=== PATIENT | female | born 1945 | race Caucasian/White ===

== ENCOUNTER → 2017-11-28 11:21 | Outpatient (CLI) | payer MEDICARE, OTHER, SELFPAY ==
--- NOTE | 2017-11-28 | DI.CT.S_ITS ---
PROCEDURE: CT ABDOMEN PELVIS W CON INDICATIONS: ELEVATED LIVER FUNCTION TESTS TECHNIQUE: After the administration of oral and intravenous contrast, 5 mm thick sections acquired from the diaphragms to the symphysis. 5 mm thick coronal and sagittal reformats were performed. For radiation dose reduction, the following was used: automated exposure control, adjustment of mA and/or kV according to patient size. COMPARISON: None. FINDINGS: Image quality: Excellent. ABDOMEN: Lung bases: Lung bases are clear. Heart size is normal. There is a small hiatal hernia behind the heart. Solid organs: Liver is normal in size and enhancement. Gallbladder appears normal. Biliary system is non-dilated. Pancreas enhances normally. Spleen is normal in size and enhancement. No adrenal nodules. Kidneys are normal in size and enhancement, without hydronephrosis. Peritoneum and bowel: Stomach, small bowel, and colon loops are normal in caliber and wall thickness. No free fluid or air. Nodes and vessels: No retroperitoneal or mesenteric adenopathy. Aorta and inferior vena cava are normal in caliber. Miscellaneous: No ventral hernias. PELVIS: Genitourinary: Bladder wall thickness is normal. Several presumed small uterine fibroids. Miscellaneous: No inguinal hernias or adenopathy. Bones: No suspicious bony lesions. No vertebral body compression fractures. IMPRESSION: Small hiatal hernia behind the heart, incidental nose made of several small uterine fibroids but no adnexal abnormality is seen. Normal appendix identified at the right lower quadrant. Dictated by: Hansel Cardoso M.D. on 11/28/2017 at 13:37 Approved by: Hansel Cardoso M.D. on 11/28/2017 at 13:39
== END ==
PROVIDERS: PCP Obstetrics & Gynecology; Visit Provider Physician Assistant
DX: R94.5 Abnormal results of liver function studies (principal); K44.9 Diaphragmatic hernia without obstruction or gangrene; D25.9 Leiomyoma of uterus, unspecified
CPT/HCPCS: 74177

== ENCOUNTER 2020-08-09 15:00 | Emergency (ER) | payer MEDICARE, OTHER, SELFPAY ==
[2020-08-09 15:07] VITALS: BP 135/92; PULSE 79; RESP 18; TEMP 37; O2SAT 100
[2020-08-09 15:37] LABS: Add Manual Diff / Slide Review NO; Basophils Absolute Auto 100 /uL (0-100); Basophils Percent Auto 1.2 % (0-2); Eosinophils Absolute Auto 0 /uL (0-450); Eosinophils Percent Auto 0.3 % (2-4); Hematocrit 32.6 % (36-46); Hemoglobin 10.5 g/dL (12.0-16.0); Lymphocytes Absolute Auto 1500 /uL (1100-4500); Lymphocytes Percent Auto 15.1 % (25-40); Mean Corpuscular HGB Conc 32.2 % (30-36); Mean Corpuscular Hemoglobin 26.5 PG (26-34); Mean Corpuscular Volume 82.3 fL (80-100); Monocytes Absolute Auto 800 /uL (0-900); Monocytes Percent Auto 8.2 % (3-14); Neutrophils Absolute Auto 7500 /uL (1500-7000); Neutrophils Percent Auto 75.2 % (50-75); Platelet Count 464 X10^3/uL (150-400); Red Blood Cell Count 3.96 X10^6/uL (4.0-5.2); Red Cell Distribution Width 16.4 % (11.6-14.8)
[2020-08-09 15:43] LABS: INR 1.2 (0.9-1.3); Prothrombin Time 14.4 SECONDS (10.1-12.7)
[2020-08-09 15:46] LABS: PTT Partial Thromboplastin Tim 32 SECONDS (26.4-36.2)
[2020-08-09 15:53] LABS: Alanine Aminotransferase 74 IU/L (<35); Albumin 3.8 g/dL (3.5-5.0); Alkaline Phosphatase 341 U/L (38-126); Aspartate Aminotransferase 106 IU/L (14-36); BUN Creatinine Ratio 16.1 (6-22); Bilirubin Total 0.3 mg/dL (0.2-1.3); Blood Urea Nitrogen 10 mg/dL (7-17); Calcium 9.6 mg/dL (8.4-10.2); Carbon Dioxide 32 mmol/L (22-32); Chloride 101 mmol/L (98-107); Estimated Glomerular Filt Rate > 60.0 mL/min (>60); Globulin 3.8 g/dL (1.7-4.1); Glucose 117 mg/dL (80-110); HEMOLYSIS < 15 (0-50); Lipase 58 U/L (23-300); Potassium 4.3 mmol/L (3.4-5.1); Sodium 136 mmol/L (137-145); Total Protein 7.6 g/dL (6.3-8.2)
--- NOTE | 2020-08-09 16:07 | DI.US.S_ITS ---
PROCEDURE: US ABDOMEN LIMITED INDICATIONS: ruq pain TECHNIQUE: Real-time focused scanning was performed of the abdomen, with image documentation. COMPARISON: [facility], CT, CT ABDOMEN PELVIS W CON, 11/28/2017, 12:18. [facility], CT, CT ABDOMEN PELVIS W CON, 08/09/2020, 16:20. FINDINGS: The liver is normal in size and demonstrates no focal lesions. No findings of gallstones or sludge are seen. The gallbladder wall is not thickened, measuring 3 mm or less. No specific pericholecystic fluid is seen. The sonographic Tovar sign is negative. There is no biliary dilatation, the common bile duct measures 3 mm. No significant pancreatic abnormality is seen on these images. IMPRESSION: The gallbladder demonstrates a normal sonographic appearance. No biliary dilatation is seen. Dictated by: Jovani Reis M.D. on 08/09/2020 at 16:23 Approved by: Jovani Reis M.D. on 08/09/2020 at 16:24
--- NOTE | 2020-08-09 16:07 | DI.CT.S_ITS ---
PROCEDURE: CT ABDOMEN PELVIS W CON INDICATIONS: ab pain and flank pain TECHNIQUE: After the administration of intravenous contrast, 5 mm thick sections acquired from the diaphragm to the symphysis. 5 mm coronal and sagittal reformats were acquired. For radiation dose reduction, the following was used: automated exposure control, adjustment of mA and/or kV according to patient size. COMPARISON: [facility], CT, CT ABDOMEN PELVIS W CON, 11/28/2017, 12:18. FINDINGS: Image quality: Excellent. ABDOMEN: Lung bases: Lung bases are clear. Heart size is normal. Solid organs: Liver is normal in size and enhancement. Gallbladder is within normal limits. Biliary system is non dilated. Pancreas enhances normally. The pancreatic head is in contact with the right-sided retroperitoneal mass. Spleen is normal in size and enhancement. No adrenal nodules. Kidneys demonstrate normal size and enhancement. There is new, mild right hydronephrosis and right renal pelvic dilatation. Peritoneum and bowel: Moderate hiatal hernia. 20 mm lipoma within the posterior aspect of the gastric antrum, increased from the prior examination. Bowel loops demonstrate normal wall thickness and caliber. No free fluid or air. Normal appendix. Nodes and vessels: There is a new, heterogeneously enhancing mass within the right retroperitoneum, anterior to the infrarenal IVC and aorta, measuring 9 cm transverse by 6 cm anteroposterior by 7.5 cm craniocaudal. This mass demonstrates encasement and obstruction of the right ureter, as well as anterior deviation of the 2nd portion of the duodenum. This mass contacts the anterior surface of the inferior vena cava and aorta. Aorta and inferior vena cava are normal in size. Miscellaneous: No ventral hernias. PELVIS: Genitourinary: Bladder wall thickness is normal. Miscellaneous: No inguinal hernias or adenopathy. Bones: No suspicious bony lesions. No vertebral body compression fractures. IMPRESSION: 1. Malignant right-sided retroperitoneal mass, which abuts the duodenum, pancreatic head, IVC, and aorta, and causes right ureteral obstruction, with mild right hydronephrosis. 2. Moderate hiatal hernia. 3. Gastric lipoma. Dictated by: Kade Dawn M.D. on 08/09/2020 at 16:40 Approved by: Kade Dawn M.D. on 08/09/2020 at 16:45
--- NOTE | 2020-08-09 16:13 | ED_ITS ---
HPI - Abdominal Pain General Chief Complaint: Abdominal Pain Stated Complaint: abdominal pain and fever Time Seen by Provider: 08/09/20 15:57 Source: patient Mode of arrival: Ambulatory Limitations: no limitations History of Present Illness HPI narrative: Patient is a 74-year-old female who presents with abdominal pain and back pain ongoing for at least a week. She actually says she had some right-sided flank pain which started a couple weeks ago. She was seen evaluated at a walk-in clinic on Friday who started her on Cipro for UTI. Her back pain and got worse in his radiating around to her abdomen she was referred to the emergency department thought to have pyelonephritis. She states that she is woken up with sweats and has had freezing cold chills. She feels nauseous she has had decrease in appetite. She denies any chest pain or shortness of breath. She denies any painful or frequent urination. MD complaint: abdominal pain and flank pain Onset (ago): day(s) Pain Consistency: constant Location: RUQ and R flank Related Data Home Medications Medication Instructions Recorded Confirmed CHOLECALCIFEROL (VITAMIN D) 2,000 units PO QDAY #0 07/14/12 Previous Rx's Medication Instructions Recorded [ESTRADIOL CREAM] 0.2 % TOPICAL QHS #30 gm 10/16/16 clobetasol 0.05 % topical ointment See Rx Instructions .ROUTE 08/09/19 .COMPLEX #30 gram hydrocodone-acetaminophen 1 tab PO Q6H PRN #10 tab 08/09/20 ondansetron 4 mg PO Q8H PRN #10 tab 08/09/20 Allergies Allergy/AdvReac Type Severity Reaction Status Date / Time codeine AdvReac Unknown rash/nausea Verified 08/09/20 17:00 Review of Systems Review of Systems ROS Unobtainable: All systems reviewed & are unremarkable except as noted in HPI and below Constitutional Constitutional: Reports body ache(s), Reports chills, Reports fever(s), Denies lethargy and Denies weakness Eyes Eyes: Denies change in vision, Denies eye discharge, Denies irritation and Denies loss of vision ENT Ears, Nose, Mouth, and Throat: Denies change in voice, Denies neck pain and Denies sore throat Cardiovascular Cardiovascular: Denies chest pain, Denies irregular heart rhythm, Denies lightheadedness, Denies palpitations, Denies dyspnea, Denies dyspnea on exertion and Denies orthopnea Respiratory Respiratory: Denies cough, Denies dyspnea, Denies dyspnea on exertion and Denies wheezing Gastrointestinal Gastrointestinal: Reports abdominal pain and Reports nausea Genitourinary Genitourinary: Reports as per HPI Genitourinary: Reports as per HPI Musculoskeletal Musculoskeletal: Denies back pain and Denies neck pain Integumentary/Breasts Skin/Breast: Denies pruritus, Denies erythema, Denies rash and Denies wounds Neurologic Neurologic: Denies loss of vision and Denies weakness Endocrine Endocrine: Denies palpitations Allergic/Immunologic Allergic/Immunologic: Denies wheezing Patient History Surgical History Status post dilation and curettage (05/07/13) Status post hemorrhoidectomy Status post tonsillectomy and adenoidectomy Exam Initial Vital Signs Initial Vital Signs: Vital Signs Temperature 98.6 F 08/09/20 15:07 Pulse Rate 79 08/09/20 15:07 Respiratory Rate 18 08/09/20 15:07 Blood Pressure 135/92 H 08/09/20 15:07 Pulse Oximetry 100 08/09/20 15:07 GENERAL: Alert pleasant 74-year-old female and in no acute distress. HEENT: Head atraumatic,EOMI, pupils reactive, face symmetric, moist mucous membranes CARDIOVASCULAR: Regular rate and rhythm without murmurs, rubs or gallops. RESPIRATORY: Breath sounds equal bilaterally, no wheezes rales or rhonchi. ABDOMEN: Soft, mild right upper quadrant pain with positive Tovar sign mild epigastric pain slight lower abdominal pain : No CVA tenderness EXTREMITIES: Normal range of motion, no clubbing or edema. Neurovascularly intact NEUROLOGICAL: Alert and oriented x4.Normal gait and speech. Cranial nerves II through XII grossly intact. SKIN: Warm, dry, no laceration, no petechiae, no rashes or lesions. Course Orders Ordered: ED Orders 08/09/20 15:30 Blood Culture Stat Complete Blood Count AUTO DIFF Stat Comprehensive Metabolic Panel Stat Lipase Stat Partial Thromboplastin Time Stat Prothrombin Time INR Stat 08/09/20 16:07 CT abdomen pelvis w con Stat US abdomen limited Stat 08/09/20 16:56 Urinalysis and Microscopic Stat 08/09/20 17:09 EKG-12 Lead Routine 08/09/20 17:47 Consult to [facility] [place] - [employer] Stat Discontinued Medications Ketorolac Tromethamine (Ketorolac 60 Mg/2 Ml Vial) 30 mg IV NOW ONE Stop: 08/09/20 16:14 Last Admin: 08/09/20 16:23 Dose: 30 mg Documented by: DEEPTHI Morphine Sulfate (Morphine 2 Mg/Ml Inj) 2 mg IV NOW ONE Stop: 08/09/20 17:00 Last Admin: 08/09/20 17:30 Dose: 2 mg Documented by: DEEPTHI Ondansetron HCl (Ondansetron 4 Mg/2 Ml Inj) 4 mg IV NOW ONE Stop: 08/09/20 16:14 Last Admin: 08/09/20 16:23 Dose: 4 mg Documented by: DEEPTHI Vital Signs Vital signs: Vital Signs - 8 hr 08/09/20 15:07 08/09/20 17:28 08/09/20 17:29 Temperature 98.6 F Pulse Rate 79 79 75 Respiratory Rate 18 Blood Pressure 135/92 H 141/65 H Pulse Oximetry 100 96 97 08/09/20 17:30 08/09/20 18:00 Temperature Pulse Rate 74 78 Respiratory Rate Blood Pressure 140/65 160/72 H Pulse Oximetry 95 96 MDM - Abdominal Pain Lab Data Attestation: I reviewed the patient's lab results. Result diagrams: 08/09/20 15:30 08/09/20 15:30 Labs: Lab Results 08/09/20 08/09/20 08/09/20 Range/Units 15:30 15:30 15:30 WBC 10.0 (4.5-11.0) X10^3/uL RBC 3.96 L (4.0-5.2) X10^6/uL Hgb 10.5 L (12.0-16.0) g/dL Hct 32.6 L (36-46) % MCV 82.3 (80-100) fL MCH 26.5 (26-34) PG MCHC 32.2 (30-36) % RDW 16.4 H (11.6-14.8) % Plt Count 464 H (150-400) X10^3/uL Neut % (Auto) 75.2 H (50-75) % Lymph % (Auto) 15.1 L (25-40) % Rhea % (Auto) 8.2 (3-14) % Eos % (Auto) 0.3 L (2-4) % Baso % (Auto) 1.2 (0-2) % Neut # (Auto) 7500 H (2895-8960) /uL Lymph # (Auto) 1500 (0001-6397) /uL Rhea # (Auto) 800 (0-900) /uL Eos # (Auto) 0 (0-450) /uL Baso # (Auto) 100 (0-100) /uL PT 14.4 H (10.1-12.7) SECONDS INR 1.2 (0.9-1.3) APTT 32 (26.4-36.2) SECONDS Sodium 136 L (137-145) mmol/L Potassium 4.3 (3.4-5.1) mmol/L Chloride 101 (98-107) mmol/L Carbon Dioxide 32 (22-32) mmol/L BUN 10 (7-17) mg/dL Creatinine 0.62 (0.52-1.04) mg/dL Estimated GFR > 60.0 (>60) mL/min BUN/Creatinine Ratio 16.1 (6-22) Glucose 117 H (80-110) mg/dL Calcium 9.6 (8.4-10.2) mg/dL Total Bilirubin 0.3 (0.2-1.3) mg/dL AST 106 H (14-36) IU/L ALT 74 H (<35) IU/L Alkaline Phosphatase 341 H (38-126) U/L Total Protein 7.6 (6.3-8.2) g/dL Albumin 3.8 (3.5-5.0) g/dL Globulin 3.8 (1.7-4.1) g/dL Albumin/Globulin Ratio 1.0 (1.0-2.8) Lipase 58 (23-300) U/L Urine Color Urine Appearance Urine pH (4.5-8.0) Ur Specific [place] (1.000-1.035) Urine Protein (Negative) Urine Glucose (UA) (Negative) g/dL Urine Ketones (NEGATIVE) Urine Occult Blood (Negative) Urine Nitrate (Negative) Urine Bilirubin (NEGATIVE) Urine Urobilinogen (0.2) E.U./dL Ur Leukocyte Esterase (NEGATIVE) Urine RBC (0-5/HPF) Urine WBC (0-5/HPF) Ur Squamous Epith Cells (0-5/HPF) Amorphous Sediment Urine Bacteria (None) Urine Mucus (Negative) Ur Culture Indicated? 08/09/20 Range/Units 16:56 WBC (4.5-11.0) X10^3/uL RBC (4.0-5.2) X10^6/uL Hgb (12.0-16.0) g/dL Hct (36-46) % MCV (80-100) fL MCH (26-34) PG MCHC (30-36) % RDW (11.6-14.8) % Plt Count (150-400) X10^3/uL Neut % (Auto) (50-75) % Lymph % (Auto) (25-40) % Rhea % (Auto) (3-14) % Eos % (Auto) (2-4) % Baso % (Auto) (0-2) % Neut # (Auto) (8091-4513) /uL Lymph # (Auto) (5151-3857) /uL Rhea # (Auto) (0-900) /uL Eos # (Auto) (0-450) /uL Baso # (Auto) (0-100) /uL PT (10.1-12.7) SECONDS INR (0.9-1.3) APTT (26.4-36.2) SECONDS Sodium (137-145) mmol/L Potassium (3.4-5.1) mmol/L Chloride (98-107) mmol/L Carbon Dioxide (22-32) mmol/L BUN (7-17) mg/dL Creatinine (0.52-1.04) mg/dL Estimated GFR (>60) mL/min BUN/Creatinine Ratio (6-22) Glucose (80-110) mg/dL Calcium (8.4-10.2) mg/dL Total Bilirubin (0.2-1.3) mg/dL AST (14-36) IU/L ALT (<35) IU/L Alkaline Phosphatase (38-126) U/L Total Protein (6.3-8.2) g/dL Albumin (3.5-5.0) g/dL Globulin (1.7-4.1) g/dL Albumin/Globulin Ratio (1.0-2.8) Lipase (23-300) U/L Urine Color Yellow Urine Appearance Clear Urine pH 6.0 (4.5-8.0) Ur Specific [place] 1.015 (1.000-1.035) Urine Protein Negative (Negative) Urine Glucose (UA) Negative (Negative) g/dL Urine Ketones Negative (NEGATIVE) Urine Occult Blood Negative (Negative) Urine Nitrate Negative (Negative) Urine Bilirubin Negative (NEGATIVE) Urine Urobilinogen 0.2 (0.2) E.U./dL Ur Leukocyte Esterase Negative (NEGATIVE) Urine RBC None seen (0-5/HPF) Urine WBC 1-5/hpf (0-5/HPF) Ur Squamous Epith Cells 1-5 /hpf (0-5/HPF) Amorphous Sediment 1+ Urine Bacteria Occasional (0-1) (None) Urine Mucus 2+ H (Negative) Ur Culture Indicated? Cult not indicated Imaging Data CT scan - abdomen/pelvis: Radiologist's Impression: PROCEDURE: CT ABDOMEN PELVIS W CON INDICATIONS: ab pain and flank pain TECHNIQUE: After the administration of intravenous contrast, 5 mm thick sections acquired from the diaphragm to the symphysis. 5 mm coronal and sagittal reformats were acquired. For radiation dose reduction, the following was used: automated exposure control, adjustment of mA and/or kV according to patient size. COMPARISON: [facility], CT, CT ABDOMEN PELVIS W CON, 11/28/2017, 12:18. FINDINGS: Image quality: Excellent. ABDOMEN: Lung bases: Lung bases are clear. Heart size is normal. Solid organs: Liver is normal in size and enhancement. Gallbladder is within normal limits. Biliary system is non dilated. Pancreas enhances normally. The pancreatic head is in contact with the right-sided retroperitoneal mass. Spleen is normal in size and enhancement. No adrenal nodules. Kidneys demonstrate normal size and enha ncement. There is new, mild right hydronephrosis and right renal pelvic dilatation. Peritoneum and bowel: Moderate hiatal hernia. 20 mm lipoma within the posterior aspect of the gastric antrum, increased from the prior examination. Bowel loops demonstrate normal wall thickness and caliber. No free fluid or air. Normal appendix. Nodes and vessels: There is a new, heterogeneously enhancing mass within the right retroperitoneum, anterior to the infrarenal IVC and aorta, measuring 9 cm tr ansverse by 6 cm anteroposterior by 7.5 cm craniocaudal. This mass demonstrates encasement and obstruction of the right ureter, as well as anterior deviation of the 2nd portion of the duodenum. This mass contacts the anterior surface of the inferior vena cava and aorta. Aorta and inferior vena cava are normal in size. Miscellaneous: No ventral hernias. PELVIS: Genitourinary: Bladder wall thickness is normal. Miscellaneous: No inguinal hernias or adenopathy. Bones: No suspicious bony lesions. No vertebral body compression fractures. IMPRESSION: 1. Malignant right-sided retroperitoneal mass, which abuts the duodenum, pancreatic head, IVC, and aorta, and causes right ureteral obstruction, with mild right hydronephrosis. 2. Moderate hiatal hernia. 3. Gastric lipoma. Dictated by: Kade Dawn M.D. on 08/09/2020 at 16:40 US - abdomen: Radiologist's Impression: PROCEDURE: US ABDOMEN LIMITED INDICATIONS: ruq pain TECHNIQUE: Real-time focused scanning was performed of the abdomen, with image documentation. COMPARISON: [facility], CT, CT ABDOMEN PELVIS W CON, 11/28/2017, 12:18. [facility], CT, CT ABDOMEN PELVIS W CON, 08/09/2020, 16:20. FINDINGS: The liver is normal in size and demonstrates no focal lesions. No findings of gallstones or sludge are seen. The gallbladder wall is not thickened, measuring 3 mm or less. No specific pericholecystic fluid is seen. The sonographic Tovar sign is negative. There is no biliary dilatation, the common bile duct measures 3 mm. No significant pancreatic abnormality is seen on these images. IMPRESSION: The gallbladder demonstrates a normal sonographic appearance. No biliary dilatation is seen. Dictated by: Jovani Reis M.D. on 08/09/2020 at 16:23 Approved by: Jovani Reis M.D. on 08/09/2020 at 16:24 ECG Data Attestation: I personally reviewed and interpreted this ECG as follows: Prior ECG tracings: not available for review Interpretation: Normal sinus rhythm rate 69 p.r. interval 172 QRS [address] changes MDM Narrative Medical decision making narrative: I have informed patient of CT results which are likely malignant cancer. I have strongly recommended she continue to follow-up with her primary care provider to get referral to oncology. I will be calling her PCP to home tomorrow saying it is though past hours to help get her set up. Social Work has been in to see her. Her pain is significantly better after morphine and Zofran has helped her nausea. There is no sign of infection at this time I do not believe that she needs antibiotics I have told her to stop taking them. She had no urinary frequency or urgency. I discussed all findings with the patient, Education has been performed regarding treatment plan, diagnosis, warning signs and symptoms and all concerns have been addressed. Verbally agree with and understood all of the above. Discharge Plan Departure Patient Disposition: Home Clinical Impression: Retroperitoneal mass Instructions: DI for Prostate Cancer Activity Restrictions/Additional Instructions: *You have been diagnosed with retroperitoneal mass *What to do: You will need a biopsy and further workup. The fastest way to get a biopsy and further workup is to stay with your current PCP. I will call help with the clinic for you tomorrow to help expedite your care. If you would like to change her PCP after you have had oncology than you may. [facility] number= [phone] *Continue to take medications as directed Stop taking antibiotics you do not have an infection [place] 1 tablet every 6 hours if needed for pain Zofran 4 mg every 8 hours if needed for nausea or vomiting *Follow up with your primary care provider in 2-3 days *Return to ER if you should have increasing pain, fever or any new, worsening or concerning symptoms CONTROLLED SUBSTANCE DISCHARGE (Narcotoic/benzodiazepine/Flexeril/Phenergan) 1. You have been prescribed narcotic medications, it does have acetaminophen/Tylenol/paracetamol in it, DO NOT TAKE MORE THAN 4,00mg in 24 hours of Tylenol. TRAMADOL DOES NOT CONTAIN TYLENOL 2. Please understand that we cannot provide further refills of narcotics, benzodiazepines or controlled substances through the ED and her pain management will need to be through your provider. 3. While on these medications you cannot drive or operate heavy machinery. 4. You cannot sign legal documents or perform any duties such as this. 5. As long as you're taking opiate pain medications he should also be taking a stool softener such as Colace, Dulcolax, MiraLAX or prune juice, to help avoid constipation. Prescriptions: New hydrocodone-acetaminophen 5-325 mg tablet 1 tab PO Q6H PRN (Reason: pain) Qty: 10 RF: 0 ondansetron 4 mg tablet,disintegrating 4 mg PO Q8H PRN (Reason: nausea and vomiting) Qty: 10 RF: 0 No Action CHOLECALCIFEROL (VITAMIN D) 2,000 units PO QDAY Qty: 0 RF: 0 [ESTRADIOL CREAM] 0.2 % Topical QHS Qty: 30 RF: 0 clobetasol 0.05 % ointment See Rx Instructions .ROUTE .COMPLEX Qty: 30 RF: 0 Referrals: Tiera Cortez MD [Primary Care Provider] -
[2020-08-09] MEDS: KETOROLAC 60 MG/2 ML VIAL 30 MG IV (16:23)
[2020-08-09] MEDS: ONDANSETRON 4 MG/2 ML INJ IV (16:23)
[2020-08-09 17:01] LABS: RBC Urine None Seen (0-5/HPF)
[2020-08-09 17:08] LABS: Appearance Urine UA CLEAR; Bilirubin Urine UA NEGATIVE (NEGATIVE); Color Urine UA YELLOW; Glucose Urine UA NEGATIVE (Negative); Ketones Urine UA NEGATIVE (NEGATIVE); Leukocyte Esterase Urine UA NEGATIVE (NEGATIVE); Nitrite Urine UA NEGATIVE (Negative); Occult Blood Urine UA NEGATIVE (Negative); Protein Urine UA NEGATIVE (Negative); Specific Gravity Urine UA 1.015 (1.000-1.035); Urobilinogen Urine UA 0.2 E.U./dL (0.2)
[2020-08-09 17:27] LABS: Amorphous Sediment Urine 1+; Bacteria Urine Occasional (0-1); Culture Indicated Urine Cult Not Indicated; Mucus Urine 2+ (Negative); Squamous Epithelial Cell Urine 1-5 /HPF (0-5/HPF); WBC Urine 1-5/HPF (0-5/HPF)
[2020-08-09 17:28] VITALS: PULSE 79; O2SAT 96
[2020-08-09 17:29] VITALS: BP 141/65; PULSE 75; O2SAT 97
[2020-08-09 17:30] VITALS: BP 140/65; PULSE 74; O2SAT 95
[2020-08-09] MEDS: MORPHINE 2 MG/ML INJ IV (17:30)
[2020-08-09 18:00] VITALS: BP 160/72; PULSE 78; O2SAT 96
--- NOTE | 2020-08-09 18:11 | CM.SWNOTE ---
MECHANICAL TECHNOLOGIST note MECHANICAL TECHNOLOGIST consult requested for patient. Patient is a 74 y/o female who presents to this ED with increasing back pain. Imaging performed during today's visit revealed a malignant mass. MECHANICAL TECHNOLOGIST enters room and speaks with patient. Patient is A+O x3. MECHANICAL TECHNOLOGIST and patient discuss findings from today's visit and patient's needs. Patient explains that she understands that she needs to follow up with PCP tomorrow to get a biopsy scheduled. Patient continues to explain that she is unsure of other needs pending outcome of biopsy. MECHANICAL TECHNOLOGIST and patient briefly discuss other resources. Patient states she may have questions later, and MECHANICAL TECHNOLOGIST offers to put ED social work phone in d/c notes. Patient accepts. MECHANICAL TECHNOLOGIST updates Dr. Morgan Pl: Patient to d/c to home and follow up with PCP following day. CHARLY Glaser
== END 2020-08-09 18:23 | disposition home or self-care (01) ==
PROVIDERS: Emergency Provider Emergency Medicine; PCP Obstetrics & Gynecology
DX: R19.00 Intra-abdominal and pelvic swelling, mass and lump, unspecified site (principal); R50.9 Fever, unspecified; R11.0 Nausea
CPT/HCPCS: 36415; 74177; 76705; 80053; 81001; 83690; 85025; 85610; 85730; 87040; 93005; 96374; 96375; 99284; J1885; J2270; J2405; Q9967

== ENCOUNTER → 2021-01-18 05:52 | Outpatient (CLI) | payer MEDICARE, OTHER, SELFPAY ==
[2021-01-18 08:21] LABS: COVID19 -Nasal RAPID Negative (Negative)
--- NOTE | 2021-01-24 11:40 | PM.PFT.1 ---
Pulmonary Function Test Referral & Results Date Patient Seen: 01/18/21 Requesting provider: Argenis Hughes Results: The spirometry demonstrates an FVC of 1.81 L which is 76% of predicted. The FEV1 was measured at 1.51 L which is 85% of predicted. The FEV1/FVC ratio was 84 which is 113% of predicted. No bronchodilator was administered No lung volumes were performed No diffusing capacity was performed The maximum voluntary ventilation was not performed Interpretation: This study demonstrates probably normal spirometry. There is a minimal reduction FEV1 although FEV1/FVC ratio is preserved suggesting the possibility of very minor obstructive lung disease, but this is not really supported by shape a flow volume loop. Suggest repeat study with lung volumes and bronchodilator to better evaluate pulmonary function
== END ==
PROVIDERS: PCP Obstetrics & Gynecology; Referring Provider Internal Medicine; Visit Provider Internal Medicine
DX: Z01.818 Encounter for other preprocedural examination (principal); Z20.822 Contact with and (suspected) exposure to COVID-19; R91.8 Other nonspecific abnormal finding of lung field
CPT/HCPCS: 87635; 94010; C9803

== ENCOUNTER → 2021-03-15 09:03 | Outpatient (CLI) | payer MEDICARE, OTHER, SELFPAY ==
--- NOTE | 2021-03-15 08:23 | DI.ECHO.S_ITS ---
Reason For Study: CANCER : :Ordering Physician: RICA, : :CIRA Performed By: Itz Ma : :Referring: CIRA STRAUSS : + + Interpretation Summary The left ventricle is normal in size. The ejection fraction is estimated to be 65-70%. There is a diffuse increased echo reflectance involving all the cardiac chambers as well as liver tissues likely due to enhanced gain from the machine. However on telemetry, there is low voltage complexes. Patient has history of malignancy therefore infiltrative cardiomyopathy like amyloidosis cannot be completely ruled out however there is no significant LVH. Correlate clinically. The right ventricle is normal in size and function. No significant valvular pathology seen. The IVC is of normal diameter and collapses greater than 50% with a sniff. This suggests a low right atrial pressure of 3 mm Hg. There is a small pericardial effusion noted. There are no echocardiographic indications of cardiac tamponade. Procedure: A two-dimensional transthoracic echocardiogram with color flow and Doppler was performed. The study quality was technically adequate. There is no prior echocardiogram noted for this patient. The patient was in sinus rhythm with heart rates between 58-65 bpm during the exam. Left Ventricle: The left ventricle is normal in size. Left ventricular wall thickness is borderline increased. There is no thrombus. Left ventricular systolic function is normal. The ejection fraction is estimated to be 65-70%. There are no focal wall motion abnormalities. MV E/A: 1.0 Med Peak E' Jason: 5.7 cm/sec E/E' med: 13.2. Right Ventricle: The right ventricle is normal in size and function. Atria: Both atria are normal in size. There is no Doppler evidence for an interatrial shunt. Mitral Valve: The mitral valve is normal in structure and function. There is trace mitral regurgitation. Aortic Valve: The aortic valve is normal in structure and function. There is no aortic valve stenosis. No aortic regurgitation is present. Tricuspid Valve: The tricuspid valve is normal in structure and function. There is a trace or physiologic amount of tricuspid regurgitation. Pulmonary artery pressures cannot be estimated because of the lack of a measurable TR jet velocity but the IVC suggests a CVP of around 3 mmHg. Pulmonic Valve: The pulmonic valve is normal in structure and function. There is no pulmonic valvular regurgitation. Great Vessels: The aortic root is normal size. The dimensions of the ascending aorta are normal. The IVC is of normal diameter and collapses greater than 50% with a sniff. This suggests a low right atrial pressure of 3 mm Hg. Pericardium/ Pleura There is a small pericardial effusion noted. There are no echocardiographic indications of cardiac tamponade. There is no pleural effusion. MMode/2D Measurements & Calculations LVIDd: 4.0 cm LVOT diam: 1.9 cm LVIDs: 2.6 cm Ao root diam: 2.5 cm FS: 35.0 % asc Aorta Diam: 3.1 cm IVSd: 1.0 cm LVPWd: 0.90 cm LV oneal. diameter/BSA (cm/m^2): 2.6 LV sys. diameter/BSA (cm/m^2): 1.7 LA dimension: 3.0 cm RA long axis: 4.7 cm LA A2 area: 14.1 cm2 LA A4 area: 11.2 cm2 LA length (vol): 5.1 cm LA vol: 26.2 ml LA vol index: 16.9 ml/m2 TAPSE_phl: 1.9 cm Doppler Measurements & Calculations Ao V2 max: 161.0 cm/sec LVOT Max Jason: 141.0 cm/sec Ao V2 mean: 109.0 cm/sec LV V1 max P.0 mmHg Ao max P.0 mmHg LV V1 VTI: 31.3 cm Ao mean P.0 mmHg HERBERT(I,D): 2.6 cm2 Ao V2 VTI: 34.5 cm HERBERT(V,D): 2.5 cm2 sev ratio: 0.91 HERBERT indexed to BSA (cm^2/m^2): 1.7 MV E max jason: 75.2 cm/sec SV(LVOT): 88.7 ml MV A max jason: 74.7 cm/sec MV E/A: 1.0 Med Peak E' Jason: 5.7 cm/sec E/E' med: 13.2 Lat Peak E' Jason: 9.9 cm/sec E/E' lat: 7.6 E/e' average: 10.4 MV dec time: 0.31 sec AV VR_phl: 0.88 MV P1/2t-pr_phl: 90.0 msec HERBERT(VTI)/BSA_phl: 1.7 Reading Physician:06:09 PM
== END ==
PROVIDERS: PCP Internal Medicine; Referring Provider Internal Medicine Medical Oncology; Visit Provider Internal Medicine Medical Oncology
DX: D49.2 Neoplasm of unspecified behavior of bone, soft tissue, and skin (principal); I31.3 Pericardial effusion (noninflammatory)
CPT/HCPCS: 93306

== ENCOUNTER → 2021-05-07 13:00 | Outpatient (CLI) | payer MEDICARE, OTHER, SELFPAY ==
--- NOTE | 2021-05-07 | DI.CT.S_ITS ---
PROCEDURE: CT CHEST ABD PEL W CON INDICATIONS: Neoplasm of unspecified behavior of bone, soft tissue TECHNIQUE: After the administration of oral and intravenous contrast, axial sections acquired from the supraclavicular neck to the pubic symphysis. Coronal and sagittal reformats were performed. For radiation dose reduction, the following was used: automated exposure control, adjustment of mA and/or kV according to patient size. COMPARISON: August 09, 2020. FINDINGS: Image quality: Excellent. CHEST: Lower Neck: No enlarged lymph nodes. Thyroid: Homogeneous attenuation. Axillae: No enlarged lymph nodes. Chest Wall: Unremarkable. Lungs and Airways: Biapical pleural thickening/scarring. Suture material is seen in the left lower lobe. A 1.7 cm noncalcified nodule/mass is seen in the left lower lobe (series 3, image 172). A 5.1 mm noncalcified nodule is seen in the right middle lobe (series 3, image 169). Pleura: No pneumothorax or pleural effusions. Heart: Heart size is normal. No pericardial effusion. Thoracic Vessels: The aorta and pulmonary arteries demonstrate normal size. Mediastinum and Bonita: No enlarged lymph nodes. Esophagus: No wall thickening. Trace hiatal hernia. ABDOMEN: Liver: Normal and smooth and contour. 6.1 mm hypoattenuating lesion in the left hepatic lobe, incompletely characterized. Gallbladder: No gallbladder wall thickening or pericholecystic fluid. Biliary ducts: Unremarkable. Pancreas: Unremarkable. Spleen: Unremarkable. Adrenal Glands: The right adrenal gland is unremarkable. Persistent fullness of the left adrenal gland apex measuring 1 cm (series 4, image 57), which is nonspecific. Kidneys and Ureters: Right nephrectomy. Normal enhancement of the left kidney without evidence of obstructive uropathy. Stomach and Bowel: No evidence of intestinal obstruction. A 1.8 x 1.7 cm fat attenuation lesion is seen in the gastric antrum, compatible with lipoma. Colonic diverticulosis without evidence of diverticulitis. Mild to moderate stool burden throughout the colon. Normal appendix. Peritoneum: No abnormal intraperitoneal fluid. No free air. 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 Ventral Wall: Trace fat containing periumbilical hernia. Abdominal Nodes: 1.4 cm contrast enhancing mass in the right retroperitoneal, suspicious for metastatic disease (series 4, image 68). Vessels: Aorta and inferior vena cava are normal in size. PELVIS: Pelvic Organs: Unremarkable. Bladder: Unremarkable. Pelvic Nodes: No enlarged lymph nodes. Miscellaneous: No inguinal hernias are seen. Bones: Multifocal degenerative change. Dextrocurvature of the thoracolumbar junction. IMPRESSION: 1. Bilateral noncalcified pulmonary nodules/mass as detailed above, concerning for metastatic disease. 2. 1.4 cm contrast enhancing mass in the right retroperitoneum, suspicious for metastatic disease. Dictated by: Tom Dillon M.D. on 05/07/2021 at 15:17 Approved by: Tom Dillon M.D. on 05/07/2021 at 15:35
== END ==
PROVIDERS: PCP Internal Medicine; Referring Provider Internal Medicine Medical Oncology; Visit Provider Internal Medicine Medical Oncology
DX: D49.2 Neoplasm of unspecified behavior of bone, soft tissue, and skin (principal); R91.8 Other nonspecific abnormal finding of lung field; R59.0 Localized enlarged lymph nodes
CPT/HCPCS: 71260; 74177

== ENCOUNTER → 2021-07-10 09:02 | Outpatient (CLI) | payer MEDICARE, OTHER, SELFPAY ==
--- NOTE | 2021-07-10 | DI.CT.S_ITS ---
PROCEDURE: CT CHEST ABD PEL W CON INDICATIONS: staging PEComa TECHNIQUE: After the administration of oral and intravenous contrast, axial sections acquired from the supraclavicular neck to the pubic symphysis. Coronal and sagittal reformats were performed. For radiation dose reduction, the following was used: automated exposure control, adjustment of mA and/or kV according to patient size. COMPARISON: [facility], CT, CT CHEST ABD PEL W CON, 05/07/2021, 13:52. FINDINGS: Image quality: Excellent. CHEST: Lower Neck: No enlarged lymph nodes. Thyroid: No focal thyroid lesions. Axillae: No enlarged lymph nodes. Overall, stable appearance of the bilateral axilla. Chest Wall: Unremarkable. Lungs and Airways: Mild biapical thickening/scarring as before. Stable appearance of postsurgical changes/suture of the posteromedial left lower lobe. Stable to slightly smaller size of pleural-based posterior left lower lobe nodule now measuring 4 mm in size versus 5 mm previously (image 219/series 5). Interval decrease in size of posteromedial left lower lobe nodule now measuring 1.0 cm versus 1.7 cm previously. Stable 3 mm subpleural nodule in the anterior left upper lobe (image 99/series 5). Interval decrease in size of now 2 mm right upper lobe pulmonary nodule seen on image 115/series 5, previously measuring 4 mm in size. No suspicious new nodules or masses identified. No septal thickening or nodularity. No pneumothorax or pleural effusions. Heart: Heart size is normal. No pericardial effusion. Thoracic Vessels: The aorta and pulmonary arteries demonstrate normal size. Mediastinum and Bonita: No enlarged lymph nodes. Esophagus: No wall thickening. Small hiatal hernia. ABDOMEN: Liver: There is a 0.5 mm anterior left hepatic lobe hypodensity. This is relatively stable in size and appearance. Gallbladder: Unremarkable. Biliary ducts: Unremarkable. Pancreas: Unremarkable. Spleen: Unremarkable. Adrenal Glands: Right adrenal gland is normal. Persistent nonspecific fullness of the left adrenal gland apex. Kidneys and Ureters: Status post right nephrectomy. Multiple surgical clips are noted in the right renal fossa. No suspicious soft tissue mass lesions in the right renal fossa. Left kidney is unremarkable. No evidence for obstructive uropathy. Stomach and Bowel: Stomach, small bowel loops, and colon are unremarkable. Redemonstration of fat attenuation mass in the gastric antrum measuring 1.8 x 1.7 cm in size, compatible with a lipoma. Scattered colonic diverticulosis without acute diverticulitis. Peritoneum: No abnormal intraperitoneal fluid. No free air. Interval decrease in size and conspicuity of central fat attenuation mass in the right lower abdomen peripherally measuring 2.1 x 2.1 cm versus 2.8 x 2.0 cm previously. Previously seen peripheral soft tissue density has also decreased in conspicuity. Findings are compatible with evolving fat necrosis versus omental infarction. Previously seen 1.4 cm oval soft tissue mass in the posterior right retroperitoneum has decreased in size, now measuring 9 mm. Ventral Wall: There is a fat-containing umbilical hernia without acute inflammation.. Abdominal Nodes: No retroperitoneal or mesenteric adenopathy by size criteria. Vessels: Aorta and inferior vena cava are normal in size. Scattered atherosclerotic calcifications of the abdominal aorta and iliac vessels without aneurysmal dilatation. PELVIS: Pelvic Organs: Unremarkable. Bladder: Unremarkable. Pelvic Nodes: No enlarged lymph nodes. Miscellaneous: No inguinal hernias are seen. Bones: No acute vertebral body compression fractures. Multilevel spondylitic changes throughout the imaged spine. No suspicious osseous lesions. IMPRESSION: 1. Multiple bilateral noncalcified pulmonary nodules are again noted with interval decrease in size and conspicuity. Findings are consistent with metastatic disease with interval positive treatment response. No new or enlarging lesions. 2. Previously seen 1.4 cm enhancing right retroperitoneal mass has decreased in size, now measuring approximately 0.9 cm in size. This is also consistent with metastatic disease demonstrating positive treatment response 3. No new masses or adenopathy identified in the chest, abdomen, or pelvis. No new or suspicious osseous abnormalities. 4. 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 5. Colonic diverticulosis without acute diverticulitis. 6. Atherosclerotic vascular disease. Other chronic findings as above. Dictated by: Freddy Dye M.D. on 07/10/2021 at 13:18 Approved by: Freddy Dye M.D. on 07/10/2021 at 13:46
== END ==
PROVIDERS: PCP Internal Medicine; Referring Provider Internal Medicine Medical Oncology; Visit Provider Internal Medicine Medical Oncology
DX: D49.2 Neoplasm of unspecified behavior of bone, soft tissue, and skin (principal); C78.02 Secondary malignant neoplasm of left lung; C78.01 Secondary malignant neoplasm of right lung; N28.1 Cyst of kidney, acquired; K42.9 Umbilical hernia without obstruction or gangrene; K57.90 Diverticulosis of intestine, part unspecified, without perforation or abscess without bleeding; Z90.5 Acquired absence of kidney
CPT/HCPCS: 71260; 74177

== ENCOUNTER → 2021-08-27 09:09 | Outpatient (CLI) | payer MEDICARE, OTHER, SELFPAY ==
--- NOTE | 2021-08-27 | DI.CT.S_ITS ---
PROCEDURE: CT CHEST ABD PEL W CON INDICATIONS: NAUSEA,VOMITING, RESTAGING TECHNIQUE: After the administration of oral and intravenous contrast, axial sections acquired from the supraclavicular neck to the pubic symphysis. Coronal and sagittal reformats were performed. For radiation dose reduction, the following was used: automated exposure control, adjustment of mA and/or kV according to patient size. COMPARISON:[facility], , PELVIC COMPLETE, 03/31/2013, 9:13. [facility], CT, CT ABDOMEN PELVIS W CON, 11/28/2017, 12:18. [facility], CT, CT ABDOMEN PELVIS W CON, 08/09/2020, 16:20. [facility], CT, CT CHEST ABD PEL W CON, 05/07/2021, 13:52. [facility], CT, CT CHEST ABD PEL W CON, 07/10/2021, 10:22. FINDINGS: Image quality: Excellent. CHEST: Lower Neck: No enlarged lymph nodes. Thyroid: There is a 1 cm enhancing nodule in lobe Axillae: No enlarged lymph nodes. Chest Wall: Unremarkable. Lungs and Airways: There are multiple lung nodules bilaterally. Reference lesions are listed in the following: Nodule 1: 0.9 cm; left lower lobe; series 3, image 179; stable. Nodule 2: 0.3 cm; right middle lobe; series 3, image 164; stable. Nodule 3: 0.2 cm; right upper lobe; series 3, image 132; new. No focal consolidation. Bibasilar dependent atelectasis. Pleura: No pneumothorax or pleural effusions. Heart: Heart size is normal. No pericardial effusion. Thoracic Vessels: The aorta and pulmonary arteries demonstrate normal size. Mediastinum and Bonita: No enlarged lymph nodes. Esophagus: No wall thickening. There is a small hiatal hernia. ABDOMEN: Liver: Unremarkable. Gallbladder: Unremarkable. Biliary ducts: Unremarkable. Pancreas: Unremarkable. Spleen: Normal in size. There is a 1.1 cm splenule anterior to the inferior aspect of spleen. Adrenal Glands: Left adrenal thickening and nodularity appears unchanged. Right adrenal is grossly normal. Kidneys and Ureters: Unremarkable. Stomach and Bowel: Stomach, small bowel loops, and colon are normal in caliber. 1.7 x 1.9 cm pedunculated fat density within the dependent aspect of the stomach, unchanged in size or appearance, most likely a lipoma. Appendix is normal. Diverticulosis without diverticulitis. Peritoneum: No abnormal intraperitoneal fluid. No free air. Ventral Wall: No hernia. Abdominal Nodes: There are postsurgical changes in the right side of the peritoneal related to surgical resection of a large retroperitoneal mass. No significant change in the 0.9 cm right retroperitoneal nodule (series 2, image 68) posterior to ascending colon. A 2.1 x 2.5 cm fat lobule with peripheral hyperdensity is again seen just below the right retroperitoneal soft tissue nodule, unchanged, compatible with fat necrosis. No enlarged retroperitoneal or mesenteric adenopathy by size criteria. Vessels: Aorta and inferior vena cava are normal in size. PELVIS: Pelvic Organs: A 1.3 x 2.0 cm soft tissue nodule along the left pelvic sidewall appears unchanged (series 2, image 93), unchanged in size since 11/28/2017, likely benign. It is probably the left whole ovary. Uterus is myomatous. Bladder: Unremarkable. Pelvic Nodes: No enlarged lymph nodes. Miscellaneous: No inguinal hernias are seen. Bones: Unremarkable. Scoliosis and degenerative changes in lumbar spine. IMPRESSION: 1. Previously seen metastatic pulmonary nodules appear stable. There is a new 0.2 cm subpleural nodule in the right upper lobe. Recommend a short-term follow-up CT in 3 months. 2. Stable 0.9 cm right retroperitoneal nodule. 3. A 1.1 cm enhancing nodule in the left thyroid lobe. Recommend thyroid ultrasound for follow-up. Dictated by: Dimitris Walker M.D. on 08/27/2021 at 16:41 Approved by: Dimitris Walker M.D. on 08/27/2021 at 17:53
--- NOTE | 2021-08-27 | DI.MRI.S_ITS ---
PROCEDURE: MR SHOULDER LT WO CON INDICATIONS: ADHESIVE CAPSULITIS LEFT SHOULDER TECHNIQUE: Noncontrast oblique coronal T2 fast spin echo with fat saturation, oblique sagittal T1 spin echo and T2 fast spin echo with fat saturation, axial T1 spin echo and T2 fast spin echo with fat saturation through the shoulder. COMPARISON: None. FINDINGS: Image quality: Excellent. Rotator cuff: Mild supraspinatus tendinopathy with interstitial and trace partial articular surface tear. Minimal infraspinatus tendinopathy with interstitial tear. Mild subscapularis tendinopathy without evidence of tear. Sagittal images demonstrate grade 2 supraspinatus muscle atrophy. Bones and bursae: No bone marrow contusions or fractures. Mild acromioclavicular joint degeneration with T2 hyperintense signal within the articulation. No os acromiale. Small amount of subacromial-subdeltoid bursal fluid is present. Capsule and soft tissues: The labrum appears intact. The long head of the biceps tendon demonstrates normal location and morphology. Signal surrounds the tendon, which may reflect mild tenosynovitis. The rotator interval appears normal, without fibrosis. The coracohumeral ligament is normal in thickness. IMPRESSION: 1. Mild supraspinatus tendinopathy with interstitial and trace partial articular surface tear. 2. Minimal infraspinatus tendinopathy with interstitial tear. 3. Mild subscapularis tendinopathy without evidence of tear. 4. Mild AC joint degeneration. 5. Mild subacromial/subdeltoid bursitis. 6. Mild biceps tenosynovitis. Dictated by: Tom Dillon M.D. on 08/27/2021 at 11:24 Approved by: Tom Dillon M.D. on 08/27/2021 at 11:42
== END ==
PROVIDERS: PCP Internal Medicine; Referring Provider Internal Medicine Medical Oncology; Visit Provider Internal Medicine Medical Oncology
DX: C78.01 Secondary malignant neoplasm of right lung (principal); C78.02 Secondary malignant neoplasm of left lung; C80.1 Malignant (primary) neoplasm, unspecified; D49.2 Neoplasm of unspecified behavior of bone, soft tissue, and skin; E04.1 Nontoxic single thyroid nodule; K66.9 Disorder of peritoneum, unspecified; M75.112 Incomplete rotator cuff tear or rupture of left shoulder, not specified as traumatic; M75.02 Adhesive capsulitis of left shoulder; M19.012 Primary osteoarthritis, left shoulder; M75.52 Bursitis of left shoulder; M75.22 Bicipital tendinitis, left shoulder
CPT/HCPCS: 71260; 73221; 74177

== ENCOUNTER → 2021-09-12 12:05 | Outpatient (CLI) | payer MEDICARE, OTHER, SELFPAY ==
[2021-09-12 14:50] LABS: BUN Creatinine Ratio 20.4 (6-22); Blood Urea Nitrogen 22 mg/dL (7-17); Carbon Dioxide 36 mmol/L (22-32); Chloride 98 mmol/L (98-107); Estimated Glomerular Filt Rate 49.2 mL/min (>60); Glucose 83 mg/dL (80-110); HEMOLYSIS < 15 (0-50); Sodium 139 mmol/L (137-145)
[2021-09-12 15:25] LABS: Ferritin 19 ng/mL (11-264)
== END ==
PROVIDERS: PCP Internal Medicine; Referring Provider Physician Assistant; Visit Provider Physician Assistant
DX: N17.9 Acute kidney failure, unspecified (principal); R53.83 Other fatigue
CPT/HCPCS: 36415; 80048; 82728

== ENCOUNTER → 2021-11-21 11:55 | Outpatient (CLI) | payer MEDICARE, OTHER, SELFPAY ==
--- NOTE | 2021-11-21 12:00 | DI.CT.S_ITS ---
PROCEDURE: CT CHEST ABD PEL WO CON INDICATIONS: PERIVASCULAR EPITHELIOID CELL NEOPLASM TECHNIQUE: After the administration of oral contrast, 5 mm thick sections acquired from the lung apices to the symphysis pubis. 5 mm thick coronal and sagittal reformats acquired, with additional 7 mm coronal MIP reformats through the lungs. For radiation dose reduction, the following was used: automated exposure control, adjustment of mA and/or kV according to patient size. COMPARISON: [facility], CT, CT CHEST ABD PEL W CON, 08/27/2021, 10:16. FINDINGS: Image quality: Excellent. CHEST: Lungs and pleura: Pulmonary nodules are as follows: Nodule 1: Left lower lobe, current image 178/3. Stable or slightly diminished in size. Previous measurements were 9 x 6 mm. Current measurement is 8 x 6 mm. Nodule 2: Stable 3 mm pulmonary nodule, current image 160/3, right middle lobe. Nodule 3: The previous 2 mm subpleural pulmonary nodule on previous image 132/3 is no longer identified. No new or increasing pulmonary nodules. No acute pulmonary opacities. No pleural effusions or pneumothorax. Central and peripheral airways are patent are normal in caliber. Mediastinum: Heart size is normal. No pericardial effusion. No mediastinal adenopathy by CT size criteria. Thoracic aorta and central pulmonary arteries are normal in size. Esophagus is normal in caliber. Small hiatal hernia. Chest wall: No axillary or supraclavicular adenopathy by size criteria. Thyroid gland is unremarkable as visualized . ABDOMEN: Solid organs: Liver is normal in size. Gallbladder is unremarkable . Pancreas is normal in contours. Spleen is normal in size. No adrenal nodules. Right kidney is surgically absent. No left hydronephrosis. Normal size left kidney. No left renal stones. Peritoneum and bowel: Again noted is in unchanged polypoid lipoma of the stomach measuring approximately 1.9 cm. Small and large bowel loops are normal in caliber and wall thickness. Diverticulosis without evidence of diverticulitis. No free fluid or air. Nodes and vessels: No retroperitoneal or mesenteric adenopathy by size criteria. A 9 mm right retroperitoneal nodule on current image 67/2 is stable, of uncertain etiology. Aorta and inferior vena cava are normal in size. Miscellaneous: No ventral hernias. PELVIS: Genitourinary: Bladder wall thickness is normal. Miscellaneous: No inguinal hernias or adenopathy. Bones: No suspicious bony lesions. No vertebral body compression fractures. IMPRESSION: 1. On the most recent prior study there were 3 pulmonary nodules. On the current study there are 2 pulmonary nodules. The larger nodule may be minimally decreased compared to the most recent prior study. No new or increasing pulmonary nodules. 2. No evidence of acute process in the chest, abdomen, and pelvis. 3. Remote right nephrectomy. 4. Stable 9 mm right retroperitoneal nodule. Dictated by: Adal Parry M.D. on 11/21/2021 at 13:56 Approved by: Adal Parry M.D. on 11/21/2021 at 14:12
== END ==
PROVIDERS: PCP Internal Medicine; Referring Provider Internal Medicine Medical Oncology; Visit Provider Internal Medicine Medical Oncology
DX: D49.2 Neoplasm of unspecified behavior of bone, soft tissue, and skin (principal); R91.8 Other nonspecific abnormal finding of lung field; R22.2 Localized swelling, mass and lump, trunk; Z90.5 Acquired absence of kidney
CPT/HCPCS: 71250; 74176

== ENCOUNTER → 2021-12-19 13:46 | Outpatient (CLI) | payer MEDICARE, OTHER, SELFPAY ==
--- NOTE | 2021-12-19 13:47 | DI.MRI.S_ITS ---
PROCEDURE: MR HEAD/BRAIN WO/W CON INDICATIONS: PERIVASCULAR EPITHELIOID CELL NEOPLASM TECHNIQUE: Noncontrast axial T1 spin echo, axial T2 fast spin echo, sagittal and axial FLAIR, coronal T2 fast spin echo, axial gradient echo, axial diffusion and ADC through the brain. After the administration of contrast, axial and coronal T1 spin echo with fat saturation through the brain. COMPARISON: None. FINDINGS: Image quality: Excellent. CSF spaces: Basal cisterns are patent. No extra-axial fluid collections. Ventricles are normal in size and shape. Brain: No midline shift. No intracranial bleeds or masses. No abnormal intracranial enhancement. There is mild cerebral volume loss for age. There is mild periventricular white matter chronic small vessel ischemic change. The brainstem appears normal. Diffusion-weighted images demonstrate no acute ischemic insults. No chronic ischemic insults. Normal intravascular flow voids are present. Skull and face: Calvarial marrow is normal in signal. Orbits appear normal. Sinuses: Small mucous retention cyst versus polyps noted in the maxillary sinuses. mastoids appear clear. IMPRESSION: 1. No acute intracranial disease process. 2. No abnormal intracranial mass or suspicious postcontrast enhancement. 3. Mild, diffuse cerebral volume loss. 4. Mild periventricular and subcortical white matter chronic microvascular ischemic change. Dictated by: Debra De Leon MD, PhD on 12/19/2021 at 17:07 Approved by: Debra De Leon MD, PhD on 12/19/2021 at 17:13
== END ==
PROVIDERS: PCP Internal Medicine; Referring Provider Internal Medicine Medical Oncology; Visit Provider Internal Medicine Medical Oncology
DX: D49.2 Neoplasm of unspecified behavior of bone, soft tissue, and skin (principal); R26.81 Unsteadiness on feet
CPT/HCPCS: 70553; A9579

== ENCOUNTER → 2023-02-26 08:28 | Outpatient (CLI) | payer MEDICARE, OTHER, SELFPAY ==
--- NOTE | 2023-02-26 | DI.CT.S_ITS ---
PROCEDURE: CT CHEST ABD PEL WO CON INDICATIONS: PERIVASCULAR EPITHELIOID CELL NEOPLASM TECHNIQUE: After the administration of oral contrast, 5 mm thick sections acquired from the lung apices to the symphysis pubis. 5 mm thick coronal and sagittal reformats acquired, with additional 7 mm coronal MIP reformats through the lungs. For radiation dose reduction, the following was used: automated exposure control, adjustment of mA and/or kV according to patient size. COMPARISON: [facility], CT, CT CHEST ABD PEL WO CON, 11/21/2021, 12:52. FINDINGS: Image quality: Excellent. CHEST: Lungs and pleura: Interval growth of the left lower lobe nodule, measuring 12 millimeters, previously 8 millimeters (series 5, image 189). Previously described right middle lobe nodules are not visualized. Interval growth the 10 millimeter subpleural nodule in the left lower lobe, previously 3 millimeters (series 5, image 247). Mediastinum: Heart size is normal. No pericardial effusion. No mediastinal adenopathy by CT size criteria. Thoracic aorta and central pulmonary arteries are normal in size. Esophagus is normal in caliber. No hiatal hernia. Chest wall: No axillary or supraclavicular adenopathy by size criteria. Thyroid gland is unremarkable . ABDOMEN: Solid organs: Liver is normal in size. Gallbladder contains sludge and stones, but is contracted. Pancreas is normal in contours. Spleen is normal in size. Mild nodular thickening of the left adrenal gland, stable from prior. Right kidney is surgically absent. Peritoneum and bowel: Small and large bowel loops are normal in caliber and wall thickness. No free fluid or air. Right retroperitoneal mass measures 4.1 centimeters, previously 0.9 centimeter (series 2, image 70). Colonic diverticulosis without evidence of diverticulitis. Nodes and vessels: No retroperitoneal or mesenteric adenopathy by size criteria. Aorta and inferior vena cava are normal in size. Miscellaneous: No ventral hernias. PELVIS: Genitourinary: Bladder wall thickness is normal. Miscellaneous: No inguinal hernias or adenopathy. Bones: No suspicious bony lesions. No vertebral body compression fractures. Convex right scoliosis. IMPRESSION: Interval growth of the right retroperitoneal mass measuring 4.1 centimeters, previously 0.9 centimeters. 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 Interval growth of the left lower lobe nodule, measuring 12 millimeters, previously 8 millimeters. Additionally, there is interval growth of a 10 millimeter juxtapleural nodule in the left lower lobe, previously 3 millimeters. Findings are concerning for metastatic disease. Dictated by: Adelfo Bright M.D. on 02/26/2023 at 9:58 Approved by: Adelfo Bright M.D. on 02/26/2023 at 10:13
== END ==
PROVIDERS: PCP Internal Medicine; Referring Provider Physician Assistant; Visit Provider Physician Assistant
DX: D49.2 Neoplasm of unspecified behavior of bone, soft tissue, and skin (principal); K66.9 Disorder of peritoneum, unspecified; R91.8 Other nonspecific abnormal finding of lung field; K57.90 Diverticulosis of intestine, part unspecified, without perforation or abscess without bleeding; Z90.5 Acquired absence of kidney
CPT/HCPCS: 71250; 74176

== ENCOUNTER → 2023-04-17 17:00 | Outpatient (CLI) | payer MEDICARE, OTHER, SELFPAY | PROVIDERS: PCP Internal Medicine; Visit Provider Physician Assistant | DX: N89.8 Other specified noninflammatory disorders of vagina (principal) | CPT/HCPCS: 87086 ==

== ENCOUNTER 2023-04-23 18:20 | Emergency (ER) | payer MEDICARE, OTHER, SELFPAY ==
[2023-04-23] VITALS (23 sets, daily range): BP systolic 98–190; BP diastolic 53–98; PULSE 83–104; RESP 16–29; TEMP 37.8; O2SAT 87–98; BMI 23.4
--- NOTE | 2023-04-23 18:33 | DI.RAD.S_ITS ---
PROCEDURE: XR CHEST 1V INDICATIONS: neutropenic fever TECHNIQUE: One view of the chest was acquired. COMPARISON: None. FINDINGS: Surgical changes and devices: None. Lungs and pleura: Mild hazy opacity at the left lung base. The previously seen left lower lobe pulmonary nodules are not appreciated. No pleural effusions or pneumothorax. Mediastinum: Mediastinal contours appear normal. Heart size is normal. Bones and chest wall: No suspicious bony lesions. Overlying soft tissues appear unremarkable. IMPRESSION: Mild left lower lobe hazy opacity. This could represent pneumonia. Prominent pericardial fat pad is also in the differential diagnosis. If clinically indicated consider CT chest. Dictated by: Brian Montgomery M.D. on 04/23/2023 at 18:56 Approved by: Brian Montgomery M.D. on 04/23/2023 at 18:58
--- NOTE | 2023-04-23 18:38 | ED_ITS ---
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 She states that she had been constipated after chemo and then started having diarrhea. She feels weak today and has a MELD perform her normal routine daily activities. She states she was sufficiently weak to get out of bed and has not had this type of reaction after chemotherapy in the past. She states that she had some itchy hives on her trunk, arms and legs that started after receiving immunotherapy but denies any chest pain or shortness of breath Related Data Home Medications Medication Instructions Recorded Confirmed CHOLECALCIFEROL (VITAMIN D) 2,000 units PO QDAY ##0 07/14/12 04/17/23 difluprednate 0.05 % eye drops drp EYE-BOTH 04/17/23 04/17/23 famotidine 20 mg tablet 10 mg PO DAILY 04/17/23 04/17/23 hydroxyzine pamoate 25 mg capsule 25 mg PO BID PRN itch 04/17/23 04/17/23 pravastatin 20 mg tablet 20 mg PO DAILY 04/17/23 04/17/23 prochlorperazine maleate 10 mg 10 mg PO Q6H PRN nausea/vomiting 04/17/23 04/17/23 tablet sirolimus-protein bound 100 mg IV 04/17/23 04/17/23 intravenous suspension (Fyarro) Previous Rx's Medication Instructions Recorded clobetasol 0.05 % topical ointment See Rx Instructions .Route 08/09/19 .COMPLEX #30 grams ondansetron 4 mg disintegrating 4 mg PO Q8H PRN nausea and 08/09/20 tablet vomiting #10 tabs clotrimazole 1 % vaginal cream 1 appful vaginal BEDTIME #45 grams 04/17/23 hydroxyzine HCl 25 mg tablet 25 mg PO QID #40 tabs 04/17/23 amoxicillin 875 mg-potassium 1 tab PO Q12H #20 tabs 04/23/23 clavulanate 125 mg tablet Allergies Allergy/AdvReac Type Severity Reaction Status Date / Time codeine AdvReac Unknown rash/nausea Verified 04/17/23 16:49 Review of Systems Review of Systems Narrative: GENERAL: See HPI HEENT: Denies sinus pain, ear pain, sore throat, difficulty swallowing, dizziness. RESPIRATORY: See HPI CARDIOVASCULAR: Denies chest pain, palpitations, orthopnea, edema, GASTROINTESTINAL: Denies nausea, vomiting, abdominal pain, diarrhea, constipation, melena. : Denies dysuria, frequency, incontinence, hematuria, urinary retention. MUSCULOSKELETAL: denies weakness, joint pain, or bony pain SKIN: Denies rash, skin lesions, or other NEUROLOGIC: Denies weakness, headache, numbness, change in speech, confusion, seizures, incoordination. PSYCHIATRIC: No concerning psychosocial issues. 12 point review of systems is negative except for those stated above Patient History Surgical History Status post dilation and curettage (05/07/13) Status post hemorrhoidectomy Status post tonsillectomy and adenoidectomy Social History Smoking Status: Never smoker Exam Narrative Exam Narrative: GENERAL: [77] year old patient appears stated age. Well-developed patient, in mild distress. HEAD: Atraumatic. Normocephalic. EYES: Pupils equal round and reactive. Extraocular motions intact. No scleral icterus. No injection or drainage. ENT: Dry mucous membranes Nose without bleeding, purulent drainage. Throat without erythema, tonsillar hypertrophy or exudate. Airway patent. NECK: Trachea midline. Non tender CARDIOVASCULAR: Regular rate and rhythm without murmurs, gallops, or rubs. RESPIRATORY: Clear to auscultation. Breath sounds equal bilaterally. No wheezes, rales, or rhonchi. GASTROINTESTINAL: Abdomen soft, non-tender, nondistended. EXTREMITIES: No edema or joint tenderness. BACK: Nontender without deformity or crepitance. No flank tenderness. NEURO: AOx3. SKIN: No rash or erythema of visible areas Initial Vital Signs Initial Vital Signs: Vital Signs Temperature 100.1 F H 04/23/23 18:45 Pulse Rate 99 H 04/23/23 18:45 Respiratory Rate 22 04/23/23 18:45 Blood Pressure 185/84 H 04/23/23 18:45 Pulse Oximetry 95 04/23/23 18:45 Oxygen Delivery Method Room Air 04/23/23 18:45 Course Orders Ordered: ED Orders 04/23/23 18:29 Magnesium Stat 04/23/23 18:31 Blood Culture Stat 04/23/23 18:32 Urinalysis and Microscopic Stat 04/23/23 18:33 Chest [XR chest 1V] Stat 04/23/23 18:40 Complete Blood Count AUTO DIFF Stat Comprehensive Metabolic Panel Stat Lactate (Lactic Acid) Stat Procalcitonin Stat 04/23/23 18:54 Respiratory Panel (Film Array) Stat Discontinued Medications Sodium Chloride (Normal Saline 0.9%) 1,000 mls @ 1,000 mls/hr IV BOLUS ONE Stop: 04/23/23 19:28 Last Infusion: 04/23/23 21:00 Dose: Infused Documented By: Admin: 04/23/23 18:45 Dose: 1,000 mls/hr Documented By: LUIS ANGEL Sodium Chloride (Normal Saline 0.9%) 1,000 mls @ 1,000 mls/hr IV BOLUS ONE Stop: 04/23/23 20:56 Last Infusion: 04/23/23 21:00 Dose: Infused Documented By: Admin: 04/23/23 20:14 Dose: 1,000 mls/hr Documented By: NATO Sodium Chloride (Normal Saline 0.9%) 1,000 mls @ 1,000 mls/hr IV BOLUS ONE Stop: 04/23/23 22:29 Last Infusion: 04/23/23 23:14 Dose: Infused Documented By: Admin: 04/23/23 21:41 Dose: 1,000 mls/hr Documented By: DANETTE Ceftriaxone Sodium 1,000 mg/ (Sodium Chloride) 100 mls @ 200 mls/hr IV NOW ONE Stop: 04/23/23 21:31 Last Infusion: 04/23/23 22:15 Dose: Infused Documented By: Admin: 04/23/23 21:41 Dose: 200 mls/hr Documented By: DANETTE Vital Signs Vital signs: Vital Signs - 8 hr 04/23/23 18:45 04/23/23 19:03 04/23/23 19:15 Temperature 100.1 F H Pulse Rate 99 H 86 84 Pulse Rate [Orthostatic Lying] Pulse Rate [Orthostatic Sitting] Pulse Rate [Orthostatic Standing] Respiratory Rate 22 16 29 H Blood Pressure 185/84 H 98/53 L Blood Pressure [Orthostatic Lying] Blood Pressure [Orthostatic Sitting] Blood Pressure [Orthostatic Standing] Pulse Oximetry 95 98 96 Oxygen Delivery Method Room Air Room Air 04/23/23 19:30 04/23/23 19:30 04/23/23 19:45 Temperature Pulse Rate 83 86 Pulse Rate [Orthostatic Lying] Pulse Rate [Orthostatic Sitting] Pulse Rate [Orthostatic Standing] Respiratory Rate 18 20 Blood Pressure 168/74 H Blood Pressure [Orthostatic Lying] Blood Pressure [Orthostatic Sitting] Blood Pressure [Orthostatic Standing] Pulse Oximetry 98 97 Oxygen Delivery Method 04/23/23 20:00 04/23/23 20:00 04/23/23 20:15 Temperature Pulse Rate 87 93 H Pulse Rate [Orthostatic Lying] Pulse Rate [Orthostatic Sitting] Pulse Rate [Orthostatic Standing] Respiratory Rate 16 24 Blood Pressure 190/84 H Blood Pressure [Orthostatic Lying] Blood Pressure [Orthostatic Sitting] Blood Pressure [Orthostatic Standing] Pulse Oximetry 96 96 Oxygen Delivery Method 04/23/23 20:30 04/23/23 20:30 04/23/23 20:45 Temperature Pulse Rate 91 H 91 H Pulse Rate [Orthostatic Lying] Pulse Rate [Orthostatic Sitting] Pulse Rate [Orthostatic Standing] Respiratory Rate 29 H 27 H Blood Pressure 175/98 H Blood Pressure [Orthostatic Lying] Blood Pressure [Orthostatic Sitting] Blood Pressure [Orthostatic Standing] Pulse Oximetry 87 L 93 Oxygen Delivery Method 04/23/23 21:00 04/23/23 21:00 04/23/23 21:15 Temperature Pulse Rate 93 H 89 Pulse Rate [Orthostatic Lying] Pulse Rate [Orthostatic Sitting] Pulse Rate [Orthostatic Standing] Respiratory Rate 26 H 25 H Blood Pressure 157/71 H Blood Pressure [Orthostatic Lying] Blood Pressure [Orthostatic Sitting] Blood Pressure [Orthostatic Standing] Pulse Oximetry 92 92 Oxygen Delivery Method 04/23/23 21:30 04/23/23 21:30 04/23/23 21:35 Temperature Pulse Rate 92 H Pulse Rate [Orthostatic Lying] Pulse Rate [Orthostatic Sitting] Pulse Rate [Orthostatic Standing] Respiratory Rate 24 Blood Pressure 161/70 H 168/72 H Blood Pressure [Orthostatic Lying] Blood Pressure [Orthostatic Sitting] Blood Pressure [Orthostatic Standing] Pulse Oximetry 92 Oxygen Delivery Method 04/23/23 21:35 04/23/23 21:40 04/23/23 21:40 Temperature Pulse Rate 102 H 94 H Pulse Rate [Orthostatic Lying] Pulse Rate [Orthostatic Sitting] Pulse Rate [Orthostatic Standing] Respiratory Rate 28 H Blood Pressure 160/80 H Blood Pressure [Orthostatic Lying] Blood Pressure [Orthostatic Sitting] Blood Pressure [Orthostatic Standing] Pulse Oximetry 92 93 Oxygen Delivery Method 04/23/23 21:41 04/23/23 21:45 04/23/23 22:00 Temperature Pulse Rate 88 90 Pulse Rate [Orthostatic Lying] 91 H Pulse Rate [Orthostatic Sitting] 104 H Pulse Rate [Orthostatic Standing] 100 H Respiratory Rate 18 25 H Blood Pressure Blood Pressure [Orthostatic Lying] 161/70 H Blood Pressure [Orthostatic Sitting] 172/79 H Blood Pressure [Orthostatic Standing] 164/65 H Pulse Oximetry 93 96 Oxygen Delivery Method 04/23/23 22:00 04/23/23 22:15 04/23/23 22:30 Temperature Pulse Rate 88 87 Pulse Rate [Orthostatic Lying] Pulse Rate [Orthostatic Sitting] Pulse Rate [Orthostatic Standing] Respiratory Rate 26 H 19 Blood Pressure 161/73 H Blood Pressure [Orthostatic Lying] Blood Pressure [Orthostatic Sitting] Blood Pressure [Orthostatic Standing] Pulse Oximetry 94 93 Oxygen Delivery Method 04/23/23 22:30 04/23/23 22:45 04/23/23 23:00 Temperature Pulse Rate 86 86 Pulse Rate [Orthostatic Lying] Pulse Rate [Orthostatic Sitting] Pulse Rate [Orthostatic Standing] Respiratory Rate 24 24 Blood Pressure 170/73 H Blood Pressure [Orthostatic Lying] Blood Pressure [Orthostatic Sitting] Blood Pressure [Orthostatic Standing] Pulse Oximetry 93 92 Oxygen Delivery Method 04/23/23 23:00 04/23/23 23:15 Temperature Pulse Rate 86 Pulse Rate [Orthostatic Lying] Pulse Rate [Orthostatic Sitting] Pulse Rate [Orthostatic Standing] Respiratory Rate 22 Blood Pressure 139/65 Blood Pressure [Orthostatic Lying] Blood Pressure [Orthostatic Sitting] Blood Pressure [Orthostatic Standing] Pulse Oximetry 93 Oxygen Delivery Method Medical Decision Making Lab Data 04/23/23 18:40 04/23/23 18:40 Labs: Lab Results 10/18/23 10/18/23 10/18/23 Range/Units 18:29 18:40 18:54 WBC 5.3 (4.5-11.0) X10^3/uL RBC 4.17 (4.0-5.2) X10^6/uL Hgb 11.3 L (12.0-16.0) g/dL Hct 34.0 L (36-46) % MCV 81.5 (80-100) fL MCH 27.2 (26-34) PG MCHC 33.4 (30-36) % RDW 14.5 (11.6-14.8) % Plt Count 187 (150-400) X10^3/uL Neut % (Auto) 65.3 (50-75) % Lymph % (Auto) 16.1 L (25-40) % [place] % (Auto) 13.9 (3-14) % Eos % (Auto) 4.0 (2-4) % Baso % (Auto) 0.7 (0-2) % Neut # (Auto) 3400 (4683-9142) /uL Lymph # (Auto) 800 L (5240-3083) /uL [place] # (Auto) 700 (0-900) /uL Eos # (Auto) 200 (0-450) /uL Baso # (Auto) 0 (0-100) /uL Sodium 140 (137-145) mmol/L Potassium 3.5 (3.4-5.1) mmol/L Chloride 108 H (98-107) mmol/L Carbon Dioxide 27 (22-32) mmol/L BUN 13 (7-17) mg/dL Creatinine 1.08 H (0.52-1.04) mg/dL Estimated GFR 52 L (>60) mL/min BUN/Creatinine Ratio 12.0 (6-22) Glucose 130 H (80-110) mg/dL Lactate 1.0 (0.7-2.1) mmol/L Calcium 9.4 (8.4-10.2) mg/dL Magnesium 1.8 (1.6-2.3) mg/dL Total Bilirubin 0.6 (0.2-1.3) mg/dL AST 39 H (14-36) IU/L ALT 25 (<35) IU/L Alkaline Phosphatase 95 (38-126) U/L Total Protein 6.5 (6.3-8.2) g/dL Albumin 3.4 L (3.5-5.0) g/dL Globulin 3.1 (1.7-4.1) g/dL Albumin/Globulin Ratio 1.1 (1.0-2.8) Procalcitonin 0.11 (<0.5) ng/mL Chlamy pneumoniae PCR Not detected (Not Detect) Adenovirus (PCR) Not detected (Not Detect) B.parapertussis DNA PCR Not detected (Not Detecte) Coronavirus OC43 (PCR) Not detected (Not Detect) Coronavirus HKU1 (PCR) Not detected (Not Detect) Coronavirus 229E (PCR) Not detected (Not Detect) SARS-CoV-2 (PCR) Not detected (Not Detecte) Coronavirus NL63 (PCR) Not detected (Not Detect) Human Metapneumovir PCR Not detected (Not Detect) Influenza Type A (PCR) Not detected (Not Detect) Influenza Type B (PCR) Not detected (Not Detect) M. pneumoniae (PCR) Not detected (Not Detect) Parainfluenza 1 (PCR) Not detected (Not Detect) Parainfluenza 2 (PCR) Not detected (Not Detect) Parainfluenza 3 (PCR) Not detected (Not Detect) Parainfluenza 4 (PCR) Not detected (Not Detect) RSV (PCR) Not detected (Not Detect) Entero/Rhino (PCR) Not detected (Not Detect) MDM Narrative Medical decision making narrative: [77] year old patient presents with generalized fatigue, weakness and lightheadedness Multiple etiologies for patient's symptoms considered including, but not limited to: [Neutropenic fever versus sepsis versus pneumonia versus UTI versus dehydration versus other] Prior Charts reviewed in our EMR Primary Historian: patient Labs reviewed and interpreted by myself: No leukocytosis or left shift, no evidence of pancytopenia, absolute neutrophil count 3400. Primary electrolytes within normal, slight elevation in creatinine at 1.08 though relatively at baseline Imaging reviewed: Chest x-ray suggests possibility of left lower lobe pneumonia Patient's history and physical exam is reassuring. Multiple diagnoses considered as noted above. She has significant improvement after fluids and is no longer orthostatic, ambulates through the department and is able to tolerate orals, produces urine. At no point did she have any significant respiratory distress, use of accessory muscles or hypoxemia. Given her often immune compromise state and the possibility of pneumonia on chest x-ray she is treated for pneumonia with 1st round of antibiotics here in the department and a prescription sent on her behalf. She is not septic there is no sign of the need for admission and she is appropriate for discharge Patient's symptoms improved over duration of stay with above-stated therapies. Findings and discharge diagnosis discussed with patient/family followed by verbalization of understanding Return precautions discussed with patient/family whom verbalize understanding of diagnosis and plan Discharge Plan Departure Patient Disposition: Home Clinical Impression: Acute dehydration, Left lower lobe pneumonia Instructions: DI for Dehydration -- Adult, DI for Pneumonia -- Adult Activity Restrictions/Additional Instructions: *You have been diagnosed with [left lower lobe pneumonia and dehydration] *What to do: *Please continue to take your regular medications as directed. [x ] New medication prescriptions sent to your pharmacy: [[facility] ] [ ] New medication written as a paper prescription [ ] No new medications given *Please follow up with your primary care provider in 2-3 days, call for an appointment. Let them know you were seen in the Emergency Department and that we ask that you be seen in follow up. We will electronically transmit a record of today's note if your PCP is in our system *If you do not have a primary care provider please contact the [facility] Resource line at [phone]. They will ask some questions about your medical history and help get you set up with a doctor in the community. *Return to Emergency Department if you should have any new, worsening or concerning symptoms, such as [fever greater than 101 F, shaking chills, worsening pain, persistent vomiting or other bothersome symptoms] Prescriptions: New amoxicillin-pot clavulanate 875-125 mg tablet 1 tab PO Q12H Qty: 20 0RF No Action hydroxyzine pamoate 25 mg capsule 25 mg PO BID PRN (Reason: itch) famotidine 20 mg tablet 10 mg PO DAILY prochlorperazine maleate 10 mg tablet 10 mg PO Q6H PRN (Reason: nausea/vomiting) pravastatin 20 mg tablet 20 mg PO DAILY difluprednate 0.05 % drops EYE-BOTH Fyarro 100 mg suspension for reconstitution IV hydroxyzine HCl 25 mg tablet 25 mg PO QID Qty: 40 0RF clotrimazole 1 % cream 1 appful vaginal BEDTIME Qty: 45 0RF Rx Instructions: use for 7 days CHOLECALCIFEROL (VITAMIN D) 2,000 units PO QDAY Qty: 0 clobetasol 0.05 % ointment See Rx Instructions .ROUTE .COMPLEX Qty: 30 0RF Dose Instruction: APPLY TO AFFECTED AREA ONCE DAILY, RUB IN WELL Rx Instructions: APPLY TO AFFECTED AREA ONCE DAILY, RUB IN WELL. Please schedule an appointment for additional refills. ondansetron 4 mg tablet,disintegrating 4 mg PO Q8H PRN (Reason: nausea and vomiting) Qty: 10 0RF Referrals: Argenis Walter MD [Primary Care Provider] - Stand Alone Forms: Patient Portal/API
[2023-04-23] MEDS: SODIUM CHLORIDE 0.9% 1,000 ML 1000 ML IV ×3 (18:45→21:41)
[2023-04-23 19:08] LABS: Add Manual Diff / Slide Review NO; Basophils Absolute Auto 0 /uL (0-100); Basophils Percent Auto 0.7 % (0-2); Eosinophils Absolute Auto 200 /uL (0-450); Hemoglobin 11.3 g/dL (12.0-16.0); Lymphocytes Absolute Auto 800 /uL (1100-4500); Lymphocytes Percent Auto 16.1 % (25-40); Mean Corpuscular HGB Conc 33.4 % (30-36); Mean Corpuscular Hemoglobin 27.2 PG (26-34); Mean Corpuscular Volume 81.5 fL (80-100); Monocytes Absolute Auto 700 /uL (0-900); Monocytes Percent Auto 13.9 % (3-14); Neutrophils Absolute Auto 3400 /uL (1500-7000); Neutrophils Percent Auto 65.3 % (50-75); Platelet Count 187 X10^3/uL (150-400); Red Blood Cell Count 4.17 X10^6/uL (4.0-5.2); Red Cell Distribution Width 14.5 % (11.6-14.8); White Blood Cell Count 5.3 X10^3/uL (4.5-11.0)
[2023-04-23 19:12] LABS: Magnesium 1.8 mg/dL (1.6-2.3)
[2023-04-23 19:14] LABS: Alanine Aminotransferase 25 IU/L (<35); Albumin 3.4 g/dL (3.5-5.0); Albumin Globulin Ratio 1.1 (1.0-2.8); Alkaline Phosphatase 95 U/L (38-126); Aspartate Aminotransferase 39 IU/L (14-36); Bilirubin Total 0.6 mg/dL (0.2-1.3); Blood Urea Nitrogen 13 mg/dL (7-17); Calcium 9.4 mg/dL (8.4-10.2); Carbon Dioxide 27 mmol/L (22-32); Chloride 108 mmol/L (98-107); Estimated Glomerular Filt Rate 52 mL/min (>60); Globulin 3.1 g/dL (1.7-4.1); Glucose 130 mg/dL (80-110); HEMOLYSIS < 15 (0-50); Potassium 3.5 mmol/L (3.4-5.1); Sodium 140 mmol/L (137-145); Total Protein 6.5 g/dL (6.3-8.2)
[2023-04-23 19:30] LABS: Procalcitonin 0.11 ng/mL (<0.5)
--- NOTE | 2023-04-23 20:14 | PC.NURSE ---
Addendum entered by Clif Art 04/23/23 20:15: on the computer on the patient's chart. The second bag was started at 2015 as per Md order Original Note: first 1l IV normal saline complete at 2014. Could not update eMAR since another nurse is one
[2023-04-23 20:40] LABS: Adenovirus Not Detected (Not Detect); B. parapertussis Not Detected (Not Detecte); Bordetella pertussis Not Detected (Not Detect); Chlamydophila pneumoniae Not Detected (Not Detect); Coronavirus 229E Not Detected (Not Detect); Coronavirus HKU1 Not Detected (Not Detect); Coronavirus NL 63 Not Detected (Not Detect); Coronavirus OC43 Not Detected (Not Detect); Human Metapneumovirus Not Detected (Not Detect); Human Rhinovirus/Enterovirus Not Detected (Not Detect); Influenza A Not Detected (Not Detect); Influenza B Not Detected (Not Detect); Mycoplasma pneumoniae Not Detected (Not Detect); Parainfluenza Virus 1 Not Detected (Not Detect); Parainfluenza Virus 2 Not Detected (Not Detect); Parainfluenza Virus 3 Not Detected (Not Detect); Parainfluenza Virus 4 Not Detected (Not Detect); Respiratory Syncytial Virus Not Detected (Not Detect); SARS- CoV-2 Not Detected (Not Detecte)
[2023-04-23] MEDS: cefTRIAXone 1,000 MG in SODIUM CHLORIDE 0.9% 100 ML 200 MG IV (21:41)
[2023-04-24 00:12] VITALS: TEMP 37.3
[2023-04-24 00:18] LABS: Appearance Urine UA SL CLOUDY; Bilirubin Urine UA NEGATIVE (NEGATIVE); Color Urine UA YELLOW; Glucose Urine UA NEGATIVE (Negative); Ketones Urine UA 1+ (NEGATIVE); Leukocyte Esterase Urine UA 2+ (NEGATIVE); Nitrite Urine UA NEGATIVE (Negative); Occult Blood Urine UA TRACE-INTACT (Negative); Protein Urine UA TRACE (Negative); Specific Gravity Urine UA >=1.030 (1.000-1.035); Urobilinogen Urine UA 0.2 E.U./dL (0.2)
[2023-04-24 00:29] LABS: pH Urine UA 5.5 (4.5-8.0)
[2023-04-24 00:30] LABS: Bacteria Urine Moderate (10-30); Culture Indicated Urine Specimen Cultured; RBC Urine 0-1/HPF (0-5/HPF); Squamous Epithelial Cell Urine 1-5 /HPF (0-5/HPF); WBC Urine 10-30/HPF (0-5/HPF)
== END 2023-04-24 00:13 | disposition home or self-care (01) ==
PROVIDERS: Emergency Provider Emergency Medicine; PCP Internal Medicine
DX: J18.9 Pneumonia, unspecified organism (principal); E86.0 Dehydration; Z20.822 Contact with and (suspected) exposure to COVID-19
CPT/HCPCS: 36415; 71045; 80053; 81001; 83605; 83735; 84145; 85025; 87040; 87086; 87633; 93010; 96361; 96365; 99284; J0696

== ENCOUNTER 2023-04-25 16:12 | Inpatient (IN) | payer MEDICARE, OTHER, SELFPAY ==
[2023-04-25] VITALS (16 sets, daily range): BP systolic 142–214; BP diastolic 64–98; PULSE 74–96; RESP 16–29; TEMP 36.8–38.2; O2SAT 93–98; BMI 23.4; BMI 25.6
--- NOTE | 2023-04-25 16:28 | DI.RAD.S_ITS ---
PROCEDURE: XR CHEST 1V INDICATIONS: suspected sepsis TECHNIQUE: One view of the chest was acquired. COMPARISON: [facility], CR, XR CHEST 1V, 04/23/2023, 18:43. FINDINGS: Surgical changes and devices: None. Lungs and pleura: Left lung base hazy opacity is decreased in conspicuity compared to prior. No pleural effusions or pneumothorax. Mediastinum: Mediastinal contours appear normal. Heart size is normal. Bones and chest wall: No suspicious bony lesions. Overlying soft tissues appear unremarkable. IMPRESSION: Decreased conspicuity of left lung base hazy opacity. Dictated by: Danilo Monroe M.D. on 04/25/2023 at 16:52 Approved by: Danilo Monroe M.D. on 04/25/2023 at 16:54
[2023-04-25] MEDS: SODIUM CHLORIDE 0.9% 1,000 ML 1000 ML IV ×2 (16:39→20:14)
[2023-04-25 17:21] LABS: Lactate (Lactic Acid) 0.9 mmol/L (0.7-2.1)
[2023-04-25 17:22] LABS: Alanine Aminotransferase 23 IU/L (<35); Albumin 2.7 g/dL (3.5-5.0); Alkaline Phosphatase 79 U/L (38-126); Aspartate Aminotransferase 37 IU/L (14-36); BUN Creatinine Ratio 8.2 (6-22); Bilirubin Total 0.5 mg/dL (0.2-1.3); Blood Urea Nitrogen 7 mg/dL (7-17); Calcium 8.6 mg/dL (8.4-10.2); Carbon Dioxide 20 mmol/L (22-32); Chloride 111 mmol/L (98-107); Creatine Kinase 77 U/L (30-135); Estimated Glomerular Filt Rate > 60 mL/min (>60); Globulin 2.7 g/dL (1.7-4.1); Glucose 98 mg/dL (80-110); HEMOLYSIS < 15 (0-50); Lipase 56 U/L (23-300); Potassium 3.7 mmol/L (3.4-5.1); Sodium 139 mmol/L (137-145); Total Protein 5.4 g/dL (6.3-8.2)
[2023-04-25 17:26] LABS: INR 1.2 (0.9-1.3); Prothrombin Time 13.7 SECONDS (10.1-12.7)
[2023-04-25 17:27] LABS: Add Manual Diff / Slide Review NO; Basophils Absolute Auto 0 /uL (0-100); Basophils Percent Auto 0.6 % (0-2); Eosinophils Absolute Auto 300 /uL (0-450); Eosinophils Percent Auto 5.9 % (2-4); Hematocrit 31.6 % (36-46); Hemoglobin 10.7 g/dL (12.0-16.0); Lymphocytes Absolute Auto 700 /uL (1100-4500); Mean Corpuscular HGB Conc 33.8 % (30-36); Mean Corpuscular Hemoglobin 27.4 PG (26-34); Mean Corpuscular Volume 81.1 fL (80-100); Monocytes Absolute Auto 600 /uL (0-900); Monocytes Percent Auto 11.4 % (3-14); Neutrophils Absolute Auto 3600 /uL (1500-7000); Neutrophils Percent Auto 69.1 % (50-75); Platelet Count 233 X10^3/uL (150-400); Red Blood Cell Count 3.89 X10^6/uL (4.0-5.2); Red Cell Distribution Width 14.8 % (11.6-14.8); White Blood Cell Count 5.2 X10^3/uL (4.5-11.0)
[2023-04-25 17:29] LABS: PTT Partial Thromboplastin Tim 29 SECONDS (26-36)
[2023-04-25 17:34] LABS: Troponin I 0.073 ng/mL (0.01-0.034)
[2023-04-25 17:45] LABS: COVID19 -Nasal RAPID Negative (Negative)
--- NOTE | 2023-04-25 18:13 | ED_ITS ---
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 Patient gets her care through [facility] oncology. Patient states for the past week she is been increasingly weak and off balance. She states she has not been able to get up out of the bed or to get to the bathroom over the last day. She was seen nights ago and told that she likely had pneumonia and was started on oral antibiotic. Patient states she is continued to feel worse she developed fevers today. She denies headache or neck pain, no cold cough congestion symptoms she denies any chest pain or shortness of breath. She has had nausea and vomiting, patient states she has chronically had issues with swallowing food and gagging improved after a surgery several years ago but has been having persistent nausea and vomiting last day or 2. She denies abdominal back or flank pain. She states she is been stooling regularly, denies any black or bloody stools. She does note some dysuria, urgency frequency and vaginal irritation. Patient states no new swelling of her extremities. She states she is chronically had a rash but it has been more itchy and pronounced recently. Patient states no blistering. She denies any swelling in her extremities. Patient has home medications are prochlorperazine, she is had 3 doses of Augmentin, Zofran, hydroxyzine and tramadol. 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 States her only allergy is to codeine it makes her nauseated and have a rash. She denies tobacco, alcohol or illicit. She lives independently at home normally does not normally use any assistive aids. Related Data Home Medications Medication Instructions Recorded Confirmed difluprednate 0.05 % eye drops 1 drp EYE-BOTH DAILY 04/17/23 04/25/23 famotidine 20 mg tablet 10 mg PO DAILY 04/17/23 04/25/23 hydroxyzine pamoate 25 mg capsule 25 mg PO BID PRN itch 04/17/23 04/25/23 pravastatin 20 mg tablet 20 mg PO DAILY 04/17/23 04/25/23 prochlorperazine maleate 10 mg 10 mg PO Q6H PRN nausea/vomiting 04/17/23 04/25/23 tablet Previous Rx's Medication Instructions Recorded hydroxyzine HCl 25 mg tablet 25 mg PO QID #40 tabs 04/17/23 amoxicillin 875 mg-potassium 1 tab PO Q12H #20 tabs 04/23/23 clavulanate 125 mg tablet Allergies Allergy/AdvReac Type Severity Reaction Status Date / Time codeine AdvReac Unknown rash/nausea Verified 04/17/23 16:49 Review of Systems Review of Systems ROS Unobtainable: All systems reviewed & are unremarkable except as noted in HPI and below Patient History Surgical History Status post dilation and curettage (05/07/13) Status post hemorrhoidectomy Status post tonsillectomy and adenoidectomy Social History household members: family Smoking Status: Never smoker alcohol intake: current Smoking Status: Never smoker alcohol intake frequency: holidays/special occasions only Substance Use Type: does not use Exam Narrative Exam Narrative: GEN: well nourished, well appearing female, alert and oriented x 3, patient appears to be in mild distress. Patient feels warm to the touch. HEENT: Atraumatic, pupils are equal round reactive to light, extraocular movements are intact, nares are clear, there is no conjunctival pallor. Throat is clear without any exudates, erythema, tonsillar enlargement or uvular deviation HEART: Regular rate and rhythm without murmur, clicks, rubs. pulses are equal in upper and lower extremities. No edema bilateral lower extremities. LUNGS:Lungs clear to auscultation, no wheezes, rales, crackles, chest moves symmetrically, no tachypnea or accessory muscle use speaks in full sentences. ABD:bowel sounds normal, soft, non-tender, no guarding, rebound, rigidity, no masses noted, no hepatosplenomegaly :No CVA tenderness MSCL: Non-tender, no muscle atrophy, range of motion but globally weak NEURO:CN 2-12 intact, sensation normal SKIN: Patient has erythematous patchy rash over her torso and extremities appears to spare her face. No blisters, no vesicles are appreciated. Initial Vital Signs Initial Vital Signs: Vital Signs Pulse Rate 91 H 04/25/23 16:20 Pulse Oximetry 95 04/25/23 16:20 Course Orders Ordered: ED Orders 04/25/23 19:50 Lactate (Lactic Acid) Stat Trop I [Troponin I] Stat 04/26/23 03:15 UA Complete [Urinalysis and Microscopic] Stat Acetaminophen (Acetaminophen 325 Mg Tablet) 650 mg PO Q6H PRN PRN Reason: Pain, Mild (1-3) Hydrocodone Bitart/Acetaminophen (Hydrocodone/Acet 5/325 Tablet) 1 tab PO Q4H PRN PRN Reason: Pain, Moderate (4-6) Calcium Carbonate (Calcium Carbonate 500 Mg Tab) 1,000 mg PO Q4HR PRN PRN Reason: Dyspepsia Enoxaparin Sodium (Enoxaparin 40 Mg/0.4 Ml Syringe) 40 mg SUBCUT DAILY [facility] Sodium Chloride (Normal Saline 0.9%) 1,000 mls @ 100 mls/hr IV CONT [facility] Last Admin: 04/25/23 23:07 Dose: 100 mls/hr Documented By: Naloxone HCl (Naloxone 0.4 Mg/Ml Vial) 0.2 mg IV Q2MIN PRN PRN Reason: Opiate Reversal Ondansetron HCl (Ondansetron 4 Mg/2 Ml Inj) 4 mg IV NOW PRN PRN Reason: Nausea And Vomiting Ondansetron HCl (Ondansetron 4 Mg Odt) 4 mg SL NOW PRN PRN Reason: Nausea And Vomiting Ondansetron HCl (Ondansetron 4 Mg/2 Ml Inj) 4 mg IV Q8HR PRN PRN Reason: Nausea And Vomiting Ondansetron HCl (Ondansetron 4 Mg Odt) 4 mg PO Q8HR PRN PRN Reason: Nausea And Vomiting Pantoprazole Sodium (Pantoprazole Dr 20 Mg Tablet) 20 mg PO 0600 [facility] Sennosides (Sennosides 8.6 Mg Tablet) 17.2 mg PO BEDTIME [facility] Discontinued Medications Acetaminophen (Acetaminophen 325 Mg Tablet) 975 mg PO NOW ONE Stop: 04/25/23 18:20 Last Admin: 04/25/23 19:35 Dose: 975 mg Documented By: NOEL Diphenhydramine HCl (Diphenhydramine 50 Mg/Ml Vial) 25 mg IV NOW ONE Stop: 04/25/23 19:10 Last Admin: 04/25/23 19:36 Dose: 25 mg Documented By: NOEL Sodium Chloride (Normal Saline 0.9%) 1,000 mls @ 1,000 mls/hr IV BOLUS ONE Stop: 04/25/23 17:27 Last Infusion: 04/25/23 17:39 Dose: Infused Documented By: Admin: 04/25/23 16:39 Dose: 1,000 mls/hr Documented By: RB Piperacillin Sod/Tazobactam (Sod 4.5 gm/ Sodium Chloride) 100 mls @ 200 mls/hr IV NOW ONE Stop: 04/25/23 18:13 Last Admin: 04/25/23 22:14 Dose: 200 mls/hr Documented By: NOEL Sodium Chloride (Normal Saline 0.9%) 1,000 mls @ 1,000 mls/hr IV BOLUS ONE Stop: 04/25/23 21:08 Last Admin: 04/25/23 20:14 Dose: 1,000 mls/hr Documented By: NOEL Vital Signs Vital signs: Vital Signs - 8 hr 04/25/23 20:30 04/25/23 21:00 Temperature 98.9 F Pulse Rate 83 80 Respiratory Rate 21 24 Blood Pressure [Right Arm] 144/64 H 149/70 H Pulse Oximetry 94 93 Oxygen Delivery Method Room Air Room Air MDM - Fever Lab Data 04/25/23 17:00 04/25/23 17:00 Labs: Lab Results 04/25/23 04/25/23 04/25/23 Range/Units 17:00 17:25 19:17 WBC 5.2 (4.5-11.0) X10^3/uL RBC 3.89 L (4.0-5.2) X10^6/uL Hgb 10.7 L (12.0-16.0) g/dL Hct 31.6 L (36-46) % MCV 81.1 (80-100) fL MCH 27.4 (26-34) PG MCHC 33.8 (30-36) % RDW 14.8 (11.6-14.8) % Plt Count 233 (150-400) X10^3/uL Neut % (Auto) 69.1 (50-75) % Lymph % (Auto) 13.0 L (25-40) % Campbell % (Auto) 11.4 (3-14) % Eos % (Auto) 5.9 H (2-4) % Baso % (Auto) 0.6 (0-2) % Neut # (Auto) 3600 (0631-9570) /uL Lymph # (Auto) 700 L (9851-6813) /uL Campbell # (Auto) 600 (0-900) /uL Eos # (Auto) 300 (0-450) /uL Baso # (Auto) 0 (0-100) /uL PT 13.7 H (10.1-12.7) SECONDS INR 1.2 (0.9-1.3) APTT 29 (26-36) SECONDS Sodium 139 (137-145) mmol/L Potassium 3.7 (3.4-5.1) mmol/L Chloride 111 H (98-107) mmol/L Carbon Dioxide 20 L (22-32) mmol/L BUN 7 (7-17) mg/dL Creatinine 0.85 (0.52-1.04) mg/dL Estimated GFR > 60 (>60) mL/min BUN/Creatinine Ratio 8.2 (6-22) Glucose 98 (80-110) mg/dL Lactate 0.9 (0.7-2.1) mmol/L Calcium 8.6 (8.4-10.2) mg/dL Total Bilirubin 0.5 (0.2-1.3) mg/dL AST 37 H (14-36) IU/L ALT 23 (<35) IU/L Alkaline Phosphatase 79 (38-126) U/L Total Creatine Kinase 77 (30-135) U/L Troponin I 0.073 H (0.01-0.034) ng/mL NT-Pro-B Natriuret Pep 3410 H (<450) pg/mL Total Protein 5.4 L (6.3-8.2) g/dL Albumin 2.7 L (3.5-5.0) g/dL Globulin 2.7 (1.7-4.1) g/dL Albumin/Globulin Ratio 1.0 (1.0-2.8) Lipase 56 (23-300) U/L Procalcitonin 0.10 (<0.5) ng/mL Chlamy pneumoniae PCR Not detected (Not Detect) Adenovirus (PCR) Not detected (Not Detect) B.parapertussis DNA PCR Not detected (Not Detecte) Coronavirus OC43 (PCR) Not detected (Not Detect) Coronavirus HKU1 (PCR) Not detected (Not Detect) Coronavirus 229E (PCR) Not detected (Not Detect) SARS-CoV-2 (PCR) Negative Not detected (Negative) Coronavirus NL63 (PCR) Not detected (Not Detect) Human Metapneumovir PCR Not detected (Not Detect) Influenza Type A (PCR) Not detected (Not Detect) Influenza Type B (PCR) Not detected (Not Detect) M. pneumoniae (PCR) Not detected (Not Detect) Parainfluenza 1 (PCR) Not detected (Not Detect) Parainfluenza 2 (PCR) Not detected (Not Detect) Parainfluenza 3 (PCR) Not detected (Not Detect) Parainfluenza 4 (PCR) Not detected (Not Detect) RSV (PCR) Not detected (Not Detect) Entero/Rhino (PCR) Not detected (Not Detect) 04/25/23 Range/Units 19:50 WBC (4.5-11.0) X10^3/uL RBC (4.0-5.2) X10^6/uL Hgb (12.0-16.0) g/dL Hct (36-46) % MCV (80-100) fL MCH (26-34) PG MCHC (30-36) % RDW (11.6-14.8) % Plt Count (150-400) X10^3/uL Neut % (Auto) (50-75) % Lymph % (Auto) (25-40) % Campbell % (Auto) (3-14) % Eos % (Auto) (2-4) % Baso % (Auto) (0-2) % Neut # (Auto) (9415-4180) /uL Lymph # (Auto) (6534-1769) /uL Campbell # (Auto) (0-900) /uL Eos # (Auto) (0-450) /uL Baso # (Auto) (0-100) /uL PT (10.1-12.7) SECONDS INR (0.9-1.3) APTT (26-36) SECONDS Sodium (137-145) mmol/L Potassium (3.4-5.1) mmol/L Chloride (98-107) mmol/L Carbon Dioxide (22-32) mmol/L BUN (7-17) mg/dL Creatinine (0.52-1.04) mg/dL Estimated GFR (>60) mL/min BUN/Creatinine Ratio (6-22) Glucose (80-110) mg/dL Lactate 1.0 (0.7-2.1) mmol/L Calcium (8.4-10.2) mg/dL Total Bilirubin (0.2-1.3) mg/dL AST (14-36) IU/L ALT (<35) IU/L Alkaline Phosphatase (38-126) U/L Total Creatine Kinase (30-135) U/L Troponin I 0.073 H (0.01-0.034) ng/mL NT-Pro-B Natriuret Pep (<450) pg/mL Total Protein (6.3-8.2) g/dL Albumin (3.5-5.0) g/dL Globulin (1.7-4.1) g/dL Albumin/Globulin Ratio (1.0-2.8) Lipase (23-300) U/L Procalcitonin (<0.5) ng/mL Chlamy pneumoniae PCR (Not Detect) Adenovirus (PCR) (Not Detect) B.parapertussis DNA PCR (Not Detecte) Coronavirus OC43 (PCR) (Not Detect) Coronavirus HKU1 (PCR) (Not Detect) Coronavirus 229E (PCR) (Not Detect) SARS-CoV-2 (PCR) (Negative) Coronavirus NL63 (PCR) (Not Detect) Human Metapneumovir PCR (Not Detect) Influenza Type A (PCR) (Not Detect) Influenza Type B (PCR) (Not Detect) M. pneumoniae (PCR) (Not Detect) Parainfluenza 1 (PCR) (Not Detect) Parainfluenza 2 (PCR) (Not Detect) Parainfluenza 3 (PCR) (Not Detect) Parainfluenza 4 (PCR) (Not Detect) RSV (PCR) (Not Detect) Entero/Rhino (PCR) (Not Detect) Imaging Data Chest x-ray: Radiologist's Impression: Close Chest X-Ray (Signed) Danilo Monroe - 04/25/23 Chest X-Ray (Signed) ValentinaBrian - 04/23/23 Chest/Abdomen/Pelvis CT (Signed) DeangeloAdelfo - 02/26/23 Brain MRI (Signed) HaleyDebra - 12/19/21 Chest/Abdomen/Pelvis CT (Signed) Adal Parry - 11/21/21 Shoulder MRI (Signed) Tom Dillon - 08/27/21 Chest/Abdomen/Pelvis CT (Signed) Ramona Walker - 08/27/21 Chest/Abdomen/Pelvis CT (Signed) Freddy Dye - 07/10/21 Chest/Abdomen/Pelvis CT (Signed) Tom Dillon - 05/07/21 Echocardiogram Ultrasound (Signed) Melisa Rhodes - 03/15/21 PFT Result 01/18/21 Abdomen/Pelvis CT (Signed) Kade Dawn - 08/09/20 Abdomen Ultrasound (Signed) Jovani Reis - 08/09/20 Abdomen/Pelvis CT (Signed) Hansel Cardoso - 11/28/17 [employer] [address] XRay Report Signed Patient: Howard Luna MR#: [id number] : 1945 Acct:[id number] Age/Sex: 77 / F Date of Service: 04/25/23 Loc: ED Accession Number: [id number] Procedure: XR chest 1V Ordering Provider: Linda Morgan D.O. PROCEDURE: XR CHEST 1V INDICATIONS: suspected sepsis TECHNIQUE: One view of the chest was acquired. COMPARISON: [facility], , XR CHEST 1V, 04/23/2023, 18:43. FINDINGS: Surgical changes and devices: None. Lungs and pleura: Left lung base hazy opacity is decreased in conspicuity compared to prior. No pleural effusions or pneumothorax. Mediastinum: Mediastinal contours appear normal. Heart size is normal. Bones and chest wall: No suspicious bony lesions. Overlying soft tissues appear unremarkable. IMPRESSION: Decreased conspicuity of left lung base hazy opacity. Dictated by: Danilo Monroe M.D. on 04/25/2023 at 16:52 Approved by: Danilo Monroe M.D. on 04/25/2023 at 16:54 ECG Data Attestation: I personally reviewed and interpreted this ECG as follows: Prior ECG tracings: available for review Interpretation: Normal sinus rhythm, rate of 86, pr 164, qrs of 72, qtc 445, no acute st changes appreciated from prior 08/09/20. Sinus rhythm rate 86 MS 162 QRS is [address] QTC [address]. No acute [address] elevation or depression noted. Appears similar to prior from earlier this evening. MDM Narrative Medical decision making narrative: This is a 77-year-old female with history of sarcoma had been on immunotherapy is currently on chemotherapy patient was seen on the found to have possible pneumonia, her urine from yesterday also shows moderate bacteria and 30 WBCs with 2+ leuks. Urine culture still pending, is not positive at this time. Blood cultures also pending. Patient's white count is fairly appropriate 5.2 hemoglobin look stable at 10.7 was 11 on last check with platelets of 233 renal function electrolytes are appropriate, AST ALT alk-phos are not significantly elevated procalcitonin negative, COVID was negative, chest x-ray shows possible left pneumonia although patient has not been having any respiratory symptoms. Troponin was indeterminate at 0.073, BNP was 3400. Patient does not appear fluid overloaded at this time. Patient had repeat troponin and lactate obtained EKG does not show any acute change. Patient has been increasingly progressively weak with no localizing deficits or changes concerning for stroke. Patient was covered with dose of IV antibiotic, Tylenol for fever. She does not meet septic criteria. With hospitalist about admission or observation suspect UTI in the setting of chronic immune suppression and weakness/debility versus changes secondary to chemotherapy. Patient did have change on chest x-ray possible pneumonia. Dr. Read, telehospitalist accepts for observation. Discharge Plan Departure Patient Disposition: Admitted as Observation Clinical Impression: Bacterial UTI, Weakness Admit Date/Time: 04/25/23 21:08 Admit Provider: Andrew Read
[2023-04-25 18:47] LABS: NT-proBNP (BNP-Adult 18+) 3410 pg/mL (<450)
[2023-04-25] MEDS: ACETAMINOPHEN 325 MG TABLET 975 MG PO (19:35)
[2023-04-25] MEDS: diphenhydrAMINE 50 MG/ML VIAL 25 MG IV (19:36)
[2023-04-25 20:06] LABS: Adenovirus Not Detected (Not Detect); B. parapertussis Not Detected (Not Detecte); Bordetella pertussis Not Detected (Not Detect); Chlamydophila pneumoniae Not Detected (Not Detect); Coronavirus 229E Not Detected (Not Detect); Coronavirus HKU1 Not Detected (Not Detect); Coronavirus NL 63 Not Detected (Not Detect); Coronavirus OC43 Not Detected (Not Detect); Human Metapneumovirus Not Detected (Not Detect); Human Rhinovirus/Enterovirus Not Detected (Not Detect); Influenza A Not Detected (Not Detect); Influenza B Not Detected (Not Detect); Mycoplasma pneumoniae Not Detected (Not Detect); Parainfluenza Virus 1 Not Detected (Not Detect); Parainfluenza Virus 2 Not Detected (Not Detect); Parainfluenza Virus 3 Not Detected (Not Detect); Parainfluenza Virus 4 Not Detected (Not Detect); Respiratory Syncytial Virus Not Detected (Not Detect); SARS- CoV-2 Not Detected (Not Detecte)
[2023-04-25 20:25] LABS: Troponin I 0.073 ng/mL (0.01-0.034)
[2023-04-25] MEDS: PIPERACILLIN/TAZO 4.5 GM in SODIUM CHLORIDE 0.9% 100 ML IV (22:14)
[2023-04-25] MEDS: SODIUM CHLORIDE 0.9% 1,000 ML 100 ML IV (23:07)
--- NOTE | 2023-04-25 23:07 | PC.ADMIT ---
[email or web address] Admission Note: Patient admitted to ACU from ED at 22:20 transferred by stretcher. A/O x 4, able to make needs known. NS running at 100/hr. Denies pain. Oriented to room and call light. Bed in low and locked position, bed alarm on and call light within reach. Home medications sent to pharmacy. The patient,Howard Luna,77 y/o, was given written information regarding hospital policies, unit procedures and contact persons. Patient's smoking status: Never smoker. Vital Signs - 8 hr 04/25/23 16:20 04/25/23 16:21 04/25/23 16:21 Temperature Pulse Rate 91 H 89 Respiratory Rate Blood Pressure 187/89 H Blood Pressure [Right Arm] Pulse Oximetry 95 95 Oxygen Delivery Method Oxygen Flow Rate 04/25/23 16:24 04/25/23 16:30 04/25/23 16:30 Temperature 100.7 F H Pulse Rate 96 H 89 Respiratory Rate 24 Blood Pressure 168/83 H 189/84 H Blood Pressure [Right Arm] Pulse Oximetry 95 94 Oxygen Delivery Method Room Air Oxygen Flow Rate 04/25/23 17:00 04/25/23 17:12 04/25/23 17:12 Temperature Pulse Rate 86 87 Respiratory Rate 25 H 25 H Blood Pressure 185/81 H Blood Pressure [Right Arm] Pulse Oximetry 96 97 Oxygen Delivery Method Oxygen Flow Rate 04/25/23 17:30 04/25/23 17:30 04/25/23 18:00 Temperature Pulse Rate 84 90 Respiratory Rate 22 24 Blood Pressure 183/86 H Blood Pressure [Right Arm] Pulse Oximetry 98 95 Oxygen Delivery Method Oxygen Flow Rate 04/25/23 18:00 04/25/23 18:30 04/25/23 18:30 Temperature Pulse Rate 89 Respiratory Rate 29 H Blood Pressure 180/78 H 163/79 H Blood Pressure [Right Arm] Pulse Oximetry 96 Oxygen Delivery Method Oxygen Flow Rate 04/25/23 19:00 04/25/23 19:00 04/25/23 19:30 Temperature 99.2 F Pulse Rate 90 Respiratory Rate 21 Blood Pressure 175/77 H 214/98 H Blood Pressure [Right Arm] Pulse Oximetry 96 Oxygen Delivery Method Oxygen Flow Rate 04/25/23 19:30 04/25/23 19:30 04/25/23 20:00 Temperature Pulse Rate 96 H 96 H 84 Respiratory Rate 23 23 22 Blood Pressure Blood Pressure [Right Arm] 214/98 H 175/72 H Pulse Oximetry 95 95 95 Oxygen Delivery Method Room Air Room Air Oxygen Flow Rate 04/25/23 20:30 04/25/23 21:00 04/25/23 21:17 Temperature 98.9 F 98.9 F Pulse Rate 83 80 Respiratory Rate 21 24 Blood Pressure Blood Pressure [Right Arm] 144/64 H 149/70 H Pulse Oximetry 94 93 Oxygen Delivery Method Room Air Room Air Oxygen Flow Rate 04/25/23 21:34 04/25/23 22:20 Temperature 98.2 F Pulse Rate 74 Respiratory Rate 16 Blood Pressure 142/64 H Blood Pressure [Right Arm] Pulse Oximetry 94 Oxygen Delivery Method Room Air Oxygen Flow Rate 0
--- NOTE | 2023-04-26 00:09 | PM.HP.1 ---
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 The pt was seen in the ER 3 days ago for similar complaints and was sent home with a course of Augmentin which she has been taking. She lives alone, and has been having more trouble with ADL's lately She denies fevers, chills, vomiting, hematuria, but has some dysuria with a rash in the groin area. She has fallin twice lately. [facility] Surgical History Status post dilation and curettage (05/07/13) Status post hemorrhoidectomy Status post tonsillectomy and adenoidectomy Social History household members: family Smoking Status: Never smoker alcohol intake: current Meds Home Medications and Allergies Home Medications Medication Instructions Recorded Confirmed Type difluprednate 0.05 % eye drops 1 drp EYE-BOTH DAILY 04/17/23 04/25/23 History famotidine 20 mg tablet 10 mg PO DAILY 04/17/23 04/25/23 History hydroxyzine HCl 25 mg tablet 25 mg PO QID #40 tabs 04/17/23 04/25/23 Rx hydroxyzine pamoate 25 mg capsule 25 mg PO BID PRN itch 04/17/23 04/25/23 History pravastatin 20 mg tablet 20 mg PO DAILY 04/17/23 04/25/23 History prochlorperazine maleate 10 mg 10 mg PO Q6H PRN nausea/vomiting 04/17/23 04/25/23 History tablet sirolimus-protein bound 100 mg mg IV QWEEK 04/17/23 04/17/23 History intravenous suspension (Fyarro) amoxicillin 875 mg-potassium 1 tab PO Q12H #20 tabs 04/23/23 04/25/23 Rx clavulanate 125 mg tablet Allergies Allergy/AdvReac Type Severity Reaction Status Date / Time codeine AdvReac Unknown rash/nausea Verified 04/17/23 16:49 Review of Systems Review of Systems Narrative: all systems were reviewed and are negative except what is listed in the HPI Exam Vital Signs (past 8 hours): - 04/25/23 16:20 04/25/23 16:21 04/25/23 16:21 Temperature Pulse Rate 91 H 89 Respiratory Rate Blood Pressure 187/89 H Blood Pressure [Right Arm] Pulse Oximetry 95 95 Oxygen Delivery Method Oxygen Flow Rate 04/25/23 16:24 04/25/23 16:30 04/25/23 16:30 Temperature 100.7 F H Pulse Rate 96 H 89 Respiratory Rate 24 Blood Pressure 168/83 H 189/84 H Blood Pressure [Right Arm] Pulse Oximetry 95 94 Oxygen Delivery Method Room Air Oxygen Flow Rate 04/25/23 17:00 04/25/23 17:12 04/25/23 17:12 Temperature Pulse Rate 86 87 Respiratory Rate 25 H 25 H Blood Pressure 185/81 H Blood Pressure [Right Arm] Pulse Oximetry 96 97 Oxygen Delivery Method Oxygen Flow Rate 04/25/23 17:30 04/25/23 17:30 04/25/23 18:00 Temperature Pulse Rate 84 90 Respiratory Rate 22 24 Blood Pressure 183/86 H Blood Pressure [Right Arm] Pulse Oximetry 98 95 Oxygen Delivery Method Oxygen Flow Rate 04/25/23 18:00 04/25/23 18:30 04/25/23 18:30 Temperature Pulse Rate 89 Respiratory Rate 29 H Blood Pressure 180/78 H 163/79 H Blood Pressure [Right Arm] Pulse Oximetry 96 Oxygen Delivery Method Oxygen Flow Rate 04/25/23 19:00 04/25/23 19:00 04/25/23 19:30 Temperature 99.2 F Pulse Rate 90 Respiratory Rate 21 Blood Pressure 175/77 H 214/98 H Blood Pressure [Right Arm] Pulse Oximetry 96 Oxygen Delivery Method Oxygen Flow Rate 04/25/23 19:30 04/25/23 19:30 04/25/23 20:00 Temperature Pulse Rate 96 H 96 H 84 Respiratory Rate 23 23 22 Blood Pressure Blood Pressure [Right Arm] 214/98 H 175/72 H Pulse Oximetry 95 95 95 Oxygen Delivery Method Room Air Room Air Oxygen Flow Rate 04/25/23 20:30 04/25/23 21:00 04/25/23 21:17 Temperature 98.9 F 98.9 F Pulse Rate 83 80 Respiratory Rate 21 24 Blood Pressure Blood Pressure [Right Arm] 144/64 H 149/70 H Pulse Oximetry 94 93 Oxygen Delivery Method Room Air Room Air Oxygen Flow Rate 04/25/23 21:34 04/25/23 22:20 Temperature 98.2 F Pulse Rate 74 Respiratory Rate 16 Blood Pressure 142/64 H Blood Pressure [Right Arm] Pulse Oximetry 94 Oxygen Delivery Method Room Air Oxygen Flow Rate 0 Oxygen Delivery Method Room Air Oxygen Flow Rate 0 Const General: comfortable and well developed Resp Auscultation: clear to auscultation bilaterally Cardio Rate: regular rate Rhythm: regular rhythm GI Inspection: normal to inspection Auscultation: normal bowel sounds Neuro General: patient alert, patient awake and patient oriented x3 Objective Labs 04/25/23 17:00 04/25/23 17:00 Labs: Laboratory Results - last 24 hr 04/25/23 04/25/23 04/25/23 17:00 17:25 19:17 WBC 5.2 RBC 3.89 L Hgb 10.7 L Hct 31.6 L MCV 81.1 MCH 27.4 MCHC 33.8 RDW 14.8 Plt Count 233 Neut % (Auto) 69.1 Lymph % (Auto) 13.0 L Bibb % (Auto) 11.4 Eos % (Auto) 5.9 H Baso % (Auto) 0.6 Neut # (Auto) 3600 Lymph # (Auto) 700 L [place] # (Auto) 600 Eos # (Auto) 300 Baso # (Auto) 0 PT 13.7 H INR 1.2 APTT 29 Sodium 139 Potassium 3.7 Chloride 111 H Carbon Dioxide 20 L BUN 7 Creatinine 0.85 Estimated GFR > 60 BUN/Creatinine Ratio 8.2 Glucose 98 Lactate 0.9 Calcium 8.6 Total Bilirubin 0.5 AST 37 H ALT 23 Alkaline Phosphatase 79 Total Creatine Kinase 77 Troponin I 0.073 H NT-Pro-B Natriuret Pep 3410 H Total Protein 5.4 L Albumin 2.7 L Globulin 2.7 Albumin/Globulin Ratio 1.0 Lipase 56 Procalcitonin 0.10 Chlamy pneumoniae PCR Not detected Adenovirus (PCR) Not detected B.parapertussis DNA PCR Not detected Coronavirus OC43 (PCR) Not detected Coronavirus HKU1 (PCR) Not detected Coronavirus 229E (PCR) Not detected SARS-CoV-2 (PCR) Negative Not detected Coronavirus NL63 (PCR) Not detected Human Metapneumovir PCR Not detected Influenza Type A (PCR) Not detected Influenza Type B (PCR) Not detected M. pneumoniae (PCR) Not detected Parainfluenza 1 (PCR) Not detected Parainfluenza 2 (PCR) Not detected Parainfluenza 3 (PCR) Not detected Parainfluenza 4 (PCR) Not detected RSV (PCR) Not detected Entero/Rhino (PCR) Not detected 04/25/23 19:50 WBC RBC Hgb Hct MCV MCH MCHC RDW Plt Count Neut % (Auto) Lymph % (Auto) Bib[place] % (Auto) Eos % (Auto) Baso % (Auto) Neut # (Auto) Lymph # (Auto) Bibb # (Auto) Eos # (Auto) Baso # (Auto) PT INR APTT Sodium Potassium Chloride Carbon Dioxide BUN Creatinine Estimated GFR BUN/Creatinine Ratio Glucose Lactate 1.0 Calcium Total Bilirubin AST ALT Alkaline Phosphatase Total Creatine Kinase Troponin I 0.073 H NT-Pro-B Natriuret Pep Total Protein Albumin Globulin Albumin/Globulin Ratio Lipase Procalcitonin Chlamy pneumoniae PCR Adenovirus (PCR) B.parapertussis DNA PCR Coronavirus OC43 (PCR) Coronavirus HKU1 (PCR) Coronavirus 229E (PCR) SARS-CoV-2 (PCR) Coronavirus NL63 (PCR) Human Metapneumovir PCR Influenza Type A (PCR) Influenza Type B (PCR) M. 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 I discussed the pt's condition and labs with the ER provider, and agree to admit, PT/OT consulted to work with the pt, BNP is slightly elevated but does not appear to be fluid overloaded clinically. will monitor, renal function intact with normal Cr. level. re-assess in am. No other signs of infection, CXR clear, respiratory panel negative, Quality VTE Deep Vein Thrombosis/Pulmonary Embolism Present on Admission: No
[2023-04-26 03:43] LABS: Appearance Urine UA CLEAR; Bilirubin Urine UA 1+ (NEGATIVE); Color Urine UA YELLOW; Glucose Urine UA NEGATIVE (Negative); Ketones Urine UA 3+ (NEGATIVE); Leukocyte Esterase Urine UA TRACE (NEGATIVE); Nitrite Urine UA NEGATIVE (Negative); Occult Blood Urine UA TRACE-INTACT (Negative); Protein Urine UA NEGATIVE (Negative); Specific Gravity Urine UA >=1.030 (1.000-1.035); Urobilinogen Urine UA 0.2 E.U./dL (0.2)
[2023-04-26 03:47] LABS: pH Urine UA 5.5 (4.5-8.0)
[2023-04-26 03:48] LABS: Ictotest Urine Negative (Negative)
[2023-04-26 04:02] LABS: Bacteria Urine None Seen; Culture Indicated Urine Specimen Cultured; RBC Urine None Seen (0-5/HPF); Squamous Epithelial Cell Urine 0-1 /HPF (0-5/HPF); WBC Urine 1-5/HPF (0-5/HPF)
[2023-04-26 05:51] LABS: Add Manual Diff / Slide Review NO; Basophils Absolute Auto 0 /uL (0-100); Basophils Percent Auto 0.9 % (0-2); Eosinophils Absolute Auto 400 /uL (0-450); Eosinophils Percent Auto 8.2 % (2-4); Hematocrit 30.8 % (36-46); Hemoglobin 10.4 g/dL (12.0-16.0); Lymphocytes Absolute Auto 600 /uL (1100-4500); Mean Corpuscular HGB Conc 33.6 % (30-36); Mean Corpuscular Hemoglobin 27.4 PG (26-34); Mean Corpuscular Volume 81.3 fL (80-100); Monocytes Absolute Auto 500 /uL (0-900); Monocytes Percent Auto 9.3 % (3-14); Neutrophils Absolute Auto 3500 /uL (1500-7000); Neutrophils Percent Auto 69.6 % (50-75); Platelet Count 246 X10^3/uL (150-400); Red Blood Cell Count 3.79 X10^6/uL (4.0-5.2); Red Cell Distribution Width 14.8 % (11.6-14.8)
[2023-04-26 05:56] LABS: BUN Creatinine Ratio 8.3 (6-22); Blood Urea Nitrogen 7 mg/dL (7-17); Calcium 7.8 mg/dL (8.4-10.2); Carbon Dioxide 18 mmol/L (22-32); Chloride 112 mmol/L (98-107); Estimated Glomerular Filt Rate > 60 mL/min (>60); Glucose 84 mg/dL (80-110); HEMOLYSIS < 15 (0-50); Potassium 3.5 mmol/L (3.4-5.1); Sodium 140 mmol/L (137-145)
[2023-04-26 06:00] VITALS: BP 179/78; PULSE 78; RESP 16; TEMP 37; O2SAT 98
[2023-04-26] MEDS: PANTOPRAZOLE DR 20 MG TABLET PO (06:35)
[2023-04-26] MEDS: HYDROCODONE/ACET 5/325 TABLET 1 TAB PO (06:58)
--- NOTE | 2023-04-26 08:19 | PM.PN.1 ---
Subjective Subjective Date Patient Seen: 04/26/23 Interval history: She is seen in her room today to follow-up her sarcoma, diminished oral intake and difficulty swallowing due to recent chemotherapy treatment. She tells me that her sarcoma developed in the abdomen, was treated and then recurred and has now spread to both lungs. She is requesting Benadryl and hydroxyzine for itching. Her is interested in what her respiratory panel and UA showed. Those are reviewed and were negative. Her chest x-ray and UA are also negative for infection. She was given 1 dose of Zosyn in the ED which has not been continued. Her hemoglobin is 10.4, down from 10.7 and 11.3 before that. That will be repeated tomorrow. Her BMP is normal. Her primary care physician and her oncologist are both at [facility]. Exam Vital Signs (past 8 hours): - 04/26/23 06:00 Temperature 98.6 F Pulse Rate 78 Respiratory Rate 16 Blood Pressure 179/78 H Pulse Oximetry 98 Oxygen Flow Rate 0 Oxygen Delivery Method Room Air Oxygen Flow Rate 0 Narrative Exam Narrative: Heart is regular rate and rhythm without murmur Lungs are clear to auscultation bilaterally Abdomen is soft, bowel sounds positive, nontender, no organomegaly Extremities have no ankle edema She is alert and oriented x3. No apparent distress. She is feeling better than when she came in. Objective Labs 04/26/23 05:09 04/26/23 05:09 Labs: Laboratory Results - last 24 hr 04/25/23 04/25/23 04/25/23 17:00 17:25 19:17 WBC 5.2 RBC 3.89 L Hgb 10.7 L Hct 31.6 L MCV 81.1 MCH 27.4 MCHC 33.8 RDW 14.8 Plt Count 233 Neut % (Auto) 69.1 Lymph % (Auto) 13.0 L [place] % (Auto) 11.4 Eos % (Auto) 5.9 H Baso % (Auto) 0.6 Neut # (Auto) 3600 Lymph # (Auto) 700 L [place] # (Auto) 600 Eos # (Auto) 300 Baso # (Auto) 0 PT 13.7 H INR 1.2 APTT 29 Sodium 139 Potassium 3.7 Chloride 111 H Carbon Dioxide 20 L BUN 7 Creatinine 0.85 Estimated GFR > 60 BUN/Creatinine Ratio 8.2 Glucose 98 Lactate 0.9 Calcium 8.6 Total Bilirubin 0.5 AST 37 H ALT 23 Alkaline Phosphatase 79 Total Creatine Kinase 77 Troponin I 0.073 H NT-Pro-B Natriuret Pep 3410 H Total Protein 5.4 L Albumin 2.7 L Globulin 2.7 Albumin/Globulin Ratio 1.0 Lipase 56 Procalcitonin 0.10 Urine Color Urine Appearance Urine pH Ur Specific [place] Urine Protein Urine Glucose (UA) Urine Ketones Urine Occult Blood Urine Nitrate Urine Bilirubin Ur Bilirubin Confirm Urine Urobilinogen Ur Leukocyte Esterase Urine RBC Urine WBC Ur Squamous Epith Cells Urine Bacteria Ur Culture Indicated? Chlamy pneumoniae PCR Not detected Adenovirus (PCR) Not detected B.parapertussis DNA PCR Not detected Coronavirus OC43 (PCR) Not detected Coronavirus HKU1 (PCR) Not detected Coronavirus 229E (PCR) Not detected SARS-CoV-2 (PCR) Negative Not detected Coronavirus NL63 (PCR) Not detected Human Metapneumovir PCR Not detected Influenza Type A (PCR) Not detected Influenza Type B (PCR) Not detected M. pneumoniae (PCR) Not detected Parainfluenza 1 (PCR) Not detected Parainfluenza 2 (PCR) Not detected Parainfluenza 3 (PCR) Not detected Parainfluenza 4 (PCR) Not detected RSV (PCR) Not detected Entero/Rhino (PCR) Not detected 04/25/23 04/26/23 04/26/23 19:50 03:15 05:09 WBC 5.0 RBC 3.79 L Hgb 10.4 L Hct 30.8 L MCV 81.3 MCH 27.4 MCHC 33.6 RDW 14.8 Plt Count 246 Neut % (Auto) 69.6 Lymph % (Auto) 12.0 L [place] % (Auto) 9.3 Eos % (Auto) 8.2 H Baso % (Auto) 0.9 Neut # (Auto) 3500 Lymph # (Auto) 600 L [place] # (Auto) 500 Eos # (Auto) 400 Baso # (Auto) 0 PT INR APTT Sodium 140 Potassium 3.5 Chloride 112 H Carbon Dioxide 18 L BUN 7 Creatinine 0.84 Estimated GFR > 60 BUN/Creatinine Ratio 8.3 Glucose 84 Lactate 1.0 Calcium 7.8 L Total Bilirubin AST ALT Alkaline Phosphatase Total Creatine Kinase Troponin I 0.073 H NT-Pro-B Natriuret Pep Total Protein Albumin Globulin Albumin/Globulin Ratio Lipase Procalcitonin Urine Color Yellow Urine Appearance Clear Urine pH 5.5 Ur Specific [place] >=1.030 H Urine Protein Negative Urine Glucose (UA) Negative Urine Ketones 3+ H Urine Occult Blood Trace-intact Urine Nitrate Negative Urine Bilirubin 1+ H Ur Bilirubin Confirm Negative Urine Urobilinogen 0.2 Ur Leukocyte Esterase Trace H Urine RBC None seen Urine WBC 1-5/hpf Ur Squamous Epith Cells 0-1 /hpf Urine Bacteria None seen Ur Culture Indicated? Specimen cultured Chlamy pneumoniae PCR Adenovirus (PCR) B.parapertussis DNA PCR Coronavirus OC43 (PCR) Coronavirus HKU1 (PCR) Coronavirus 229E (PCR) SARS-CoV-2 (PCR) Coronavirus NL63 (PCR) Human Metapneumovir PCR Influenza Type A (PCR) Influenza Type B (PCR) M. pneumoniae (PCR) Parainfluenza 1 (PCR) Parainfluenza 2 (PCR) Parainfluenza 3 (PCR) Parainfluenza 4 (PCR) RSV (PCR) Entero/Rhino (PCR) [facility] Surgical History Status post dilation and curettage (05/07/13) Status post hemorrhoidectomy Status post tonsillectomy and adenoidectomy Social History household members: spouse Smoking Status: Never smoker alcohol intake: current Assessment & Plan Assessment & Plan narrative: Assessment and plan (1) Weakness: -secondary to diminished oral intake from decreased swallowing interest inability with recent sarcoma treatment. -continue IV fluid supplementation and anticipate improving swallowing and discharge home in the next 1-2 days. (2) Acute dehydration: -patient denies nausea and vomiting but admits to difficulty swallowing while on cancer treatment. 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 Itching -this is apparently chronic and responds best to hydroxyzine. -on 04/26 she was tried on both loratadine and Benadryl without effect, apparently hydroxyzine is more helpful. Plan Continue IV fluid, PT/OT consulted to work with the pt, BNP is slightly elevated but does not appear to be fluid overloaded clinically. will monitor, renal function intact with normal Cr. level. Quality VTE Deep Vein Thrombosis/Pulmonary Embolism Present on Admission: No
[2023-04-26] MEDS: diphenhydrAMINE 25 MG TABLET PO (09:33)
[2023-04-26] MEDS: NYSTATIN CREAM 30 GM 1 APPLIC TOP ×2 (09:35→21:17)
[2023-04-26] MEDS: ENOXAPARIN 40 MG/0.4 ML SYRINGE SUBCUT (09:35)
[2023-04-26] MEDS: SODIUM CHLORIDE 0.9% 1,000 ML 100 ML IV ×2 (09:35→20:00)
--- NOTE | 2023-04-26 10:39 | DI.ECHO.S_ITS ---
[facility]---------+ [facility] +---------+ : : [address] : : : : [id number] : : : : Phone: [phone]+ Echocardiogram Report + + :Name: RAMOS ORTA Study Date: 04/26/2023 Height: 60 in : :[facility] ReadingLocation: Weight: 131 lb : : Gender: Female BSA: 1.6 m2 : :: 1945 Age: 77 yrs BP: 142/64 mmHg: :Reason For Study: Congestiv Heart Failure : :Ordering Physician: GILMER, : :ROSEANNA Mendieta Performed By: Tiarra Hernandez : :Referring: ROSEANNA SCHERER : + + Interpretation Summary The left ventricular cavity is small. The ejection fraction is estimated to be 70-75%. Diastolic parameters suggest probable normal left ventricular diastolic function and normal filling pressures. The right ventricle is normal in size and function. No significant valvular abnormalities. Pulmonary artery pressures cannot be estimated because of the lack of a measurable TR jet velocity but the IVC suggests a CVP of around 3 mmHg. There is a small pericardial effusion noted. There are no echocardiographic indications of cardiac tamponade. Procedure: A two-dimensional transthoracic echocardiogram with color flow and Doppler was performed. The study quality was technically adequate. Comparison is made with the echocardiogram of 03/15/2021. The patient was in normal sinus rhythm during the exam. Left Ventricle: The left ventricular cavity is small. There is borderline concentric left ventricular hypertrophy. The ejection fraction is estimated to be 70-75%. Diastolic parameters suggest probable normal left ventricular diastolic function and normal filling pressures. Right Ventricle: The right ventricle is normal in size and function. Atria: The left atrial size is normal. Right atrial size is normal. There is no Doppler evidence for an interatrial shunt. Mitral Valve: The mitral valve is normal. There is no mitral valve stenosis. There is no mitral regurgitation noted. Aortic Valve: The aortic valve is trileaflet. There is mild aortic valve sclerosis. There is no aortic valve stenosis. No aortic regurgitation is present. Tricuspid Valve: The tricuspid valve is normal. There is no tricuspid stenosis. There is trace tricuspid regurgitation. Pulmonary artery pressures cannot be estimated because of the lack of a measurable TR jet velocity but the IVC suggests a CVP of around 3 mmHg. Pulmonic Valve: The pulmonic valve is not well visualized. There is no pulmonic valvular stenosis. There is no pulmonic valvular regurgitation. Great Vessels: The aortic root is normal size. The ascending aorta is normal in size. The pulmonary artery is normal size. The IVC is of normal diameter and collapses greater than 50% with a sniff. This suggests a low right atrial pressure of 3 mm Hg. Pericardium/ Pleura There is a small pericardial effusion noted. There are no echocardiographic indications of cardiac tamponade. There is no pleural effusion. MMode/2D Measurements & Calculations LVIDd: 3.5 cm LVOT diam: 1.6 cm LVIDs: 2.6 cm Ao root diam: 2.3 cm FS: 25.7 % asc Aorta Diam: 3.3 cm IVSd: 1.0 cm LVPWd: 1.0 cm LV oneal. diameter/BSA (cm/m^2): 2.2 LV sys. diameter/BSA (cm/m^2): 1.7 LA A2 area: 9.8 cm2 RA long axis: 4.0 cm LA A4 area: 9.4 cm2 RA area: 8.1 cm2 LA length (vol): 4.4 cm RA vol: 13.9 ml LA vol: 17.9 ml RA : 8.9 ml/m2 LA vol index: 11.5 ml/m2 RVD1 (basal): 2.2 cm LVLs ap4: 5.0 cm LVLd ap2: 6.7 cm TAPSE_phl: 1.9 cm LVLs ap2: 5.7 cm Doppler Measurements & Calculations Ao V2 max: 191.5 cm/sec LVOT Max Jason: 127.7 cm/sec Ao V2 mean: 128.0 cm/sec LV V1 max P.5 mmHg Ao max P.0 mmHg LV V1 VTI: 23.5 cm Ao mean P.8 mmHg HERBERT(I,D): 1.5 cm2 Ao V2 VTI: 31.3 cm HERBERT(V,D): 1.3 cm2 sev ratio: 0.75 HERBERT indexed to BSA (cm^2/m^2): 0.97 MV E max jason: 86.4 cm/sec PA V2 max: 157.0 cm/sec MV A max jason: 113.0 cm/sec PA V2 mean: 105.0 cm/sec MV E/A: 0.76 PA mean P.0 mmHg Med Peak E' Jason: 5.3 cm/sec PA pr(Accel): 56.5 mmHg E/E' med: 16.2 Lat Peak E' Jason: 8.5 cm/sec E/E' lat: 10.1 E/e' average: 13.2 MV dec time: 0.20 sec SV(LVOT): 47.2 ml AV VR_phl: 0.67 HERBERT(VTI)/BSA_phl: 0.97 Reading Physician:05:53 PM
--- NOTE | 2023-04-26 10:45 | PT.IIE ---
Current Diagnoses Secondary malignant neoplasm of bone (04/25/23) Dehydration (04/25/23) Weakness (04/25/23) Surgical History (Last Reviewed 04/25/23 @ 19:13 by Tanika Teague DO) Status post dilation and curettage (05/07/13) Status post hemorrhoidectomy Status post tonsillectomy and adenoidectomy Physical Therapy Inpatient Evaluation/Re-Eval M1 PT/OT-IP Prior Functional Status Start: 04/26/23 13:24 Freq: NEEDED Status: Active Protocol: Document 04/26/23 10:45 AB (Rec: 04/26/23 13:42 AB [email or web address]) Medical Review Prior Functional Status Medical History Reviewed Yes Communication able to make needs known Mobility and Gait pt stated that she is independent with all mobilities and ambulation without AD Social History Household Members none Living Arrangements Apartment/Condo Number of Floors (Floors) One Floor Number of Stairs To Enter/Railing? no steps to enter Home Environment Standard Height Toilet,Walk in Shower,Built-In Shower Seat Home Equipment Straight Cane,Hand Held Shower ,Grab Bars In Shower Additional Social History Comment pt has a toilet safety frame M2 PT-IP Current Condition Start: 04/26/23 13:24 Freq: NEEDED Status: Active Protocol: Document 04/26/23 10:45 AB (Rec: 04/26/23 13:42 AB [email or web address]) Physical Therapy Current Condition Current Condition Evaluation Date 04/26/23 Treatment Diagnosis UTI; difficulty in walking Onset Date 04/25/23 M3 PT-IP Subjective Start: 04/26/23 13:24 Freq: NEEDED Status: Active Protocol: Document 04/26/23 10:45 AB (Rec: 04/26/23 13:42 AB [email or web address]) Subjective Physical Therapy Visit Type Type Initial Evaluation Visit Start Time 10:45 Visit Stop Time 11:27 Total Visit Minutes 37 Number of MEDICAL STAFF SERVICES MANAGER Visits 0 Therapy Pain Assessment Pain Present Pain Present Denied Pain M4 PT-IP Mobility and Gait Start: 04/26/23 13:24 Freq: NEEDED Status: Active Protocol: Document 04/26/23 10:45 AB (Rec: 04/26/23 13:42 AB [id number]) PT-Bed Mobility Assessment Supine to Sit Supine to Sit Maximum Assistance,1 Person Assistance,2 Person Assistance ,Bedrails Sit to Supine Sit to Supine Maximum Assistance,1 Person Assistance,2 Person Assistance Scooting Scooting to Edge of Bed Dependent PT-Transfer Assessment Sit to and From Stand Sit to and from Stand Maximum Assistance,1 Person Assistance,2 Person Assistance ,Use of Upper Extremities Equipment Transfer Assistive Device Gait Belt,Front Wheeled Walker Orthotic/Prosthetic Devices or Brace: No Comments Mobility Comments pt supine in bed. pt's friend in room with pt. pt completed supine to sit max A x 1-2 and max cues. presents with increase posterior trunk lean and BLE extension. cued pt for positioning and to lean forward and pt stated that she cannot do it. total A for scooting to EOB. pt requesting to have a brief on. completed sit to stand max A x 1-2 and max cues. nurse assisted with hygiene care and brief management. pt requiring mod A for standing balance using FWW for support. pt agreed to ambulate and completed ~ 40 ft using fWW min A to mod A. pt requested to go back to bed and refused to sit up on the chair. completed sit to supine max A x 1-2 and max cues. max A for positioning in bed. call light and table placed within reach. informed pt regarding SNF recommendation and pt refuse. stated that she will find somebody to assist her. Gait Assessment Gait Gait Assistance Required: Minimum Assistance,Moderate Assistance Distance (Feet) 40 Able to Maintain Weight Bearing Status Yes During Gait Assistive Devices Assistive Device Gait Belt,Front Wheeled Walker Orthotic/Prosthetic Devices or Brace: No Gait Deviations General Gait Pattern Decreased Stride Length, Decreased Feet Clearance,Step- to Gait Factors Limiting Gait Function Factors Limiting Gait Function Decreased Activity Tolerance, Decreased Strength,Limited Range of Motion,Poor Balance, Poor Safety Awareness PT-Balance Assessment Sitting Balance and Reactions Static Sitting Balance Ability Poor Dynamic Sitting Balance Ability Poor Standing Balance and Reactions Static Standing Balance Ability Fair Dynamic Standing Balance Ability Poor Device Used FWW M5 PT-IP Objective Assessments Start: 04/26/23 13:24 Freq: NEEDED Status: Active Protocol: Document 04/26/23 10:45 AB (Rec: 04/26/23 13:42 AB [id number]) Orientation Orientation/Cognition Level of Alertness Alert Orientation Name,Place,Situation Language Function Ability Hard of Hearing Safety Awareness Decreased Safety Awareness Memory Description No Deficits Noted Gross Range of Motion Lower Extremity ROM Assessment Within Functional Limits Strength Lower Extremity Strength Assessment Bilaterally Impaired Hip 3+/5 Knee 3+/5 Muscle Tone Muscle Tone WNL Yes M6 PT-IP Treatment Start: 04/26/23 13:24 Freq: NEEDED Status: Active Protocol: Document 04/26/23 10:45 AB (Rec: 04/26/23 13:42 AB [id number]) Physical Therapy Treatment Education Education Provided Safety M7 PT-IP Assessment and Plan Start: 04/26/23 13:24 Freq: NEEDED Status: Active Protocol: Document 04/26/23 10:45 AB (Rec: 04/26/23 13:42 AB [id number]) PT Summary Assessment and Plan Potential Rehabilitation Potential Fair Status of Condition at Evaluation Evolving Summary Impairments Pain,ROM,Strength,Balance, Coordination,Sensation,Tone, Cognition,Bed Mobility, Transfers,Gait,Activity Tolerance Assessment Summary pt is a 77 y/o F who presented to the ED with c/o fever and weakness. pt admitted for UTI . pt also has dx of sarcoma with mets to the bone and is on immunotherapy and is receiving chemotherapy. pt requring max A x 1-2 for supine to sit. unable to sit on EOB without max A but able to ambulate with min A using FWW. pt presents with weakness and decrease activity tolerance. pt will need 24/7 assist at this time and will need SNF rehab. will continue to assess progress. Goals Bed Mobility Goal Minimal Assistance Transfer Goal Minimal Assistance,Front Wheeled Walker Gait Goal Standby Assistance,Front Wheel Walker Gait Distance 100 Other Goals improve bed mobility, transfers , ambulation using LRAQ/without AD 250 ft mod I Days to Meet Goals 10 Frequency of Treatment Frequency Of Treatment Once a Day Treatment Plan Physical Therapy Treatment Plan Bed Mobility Training,Transfer Training,Gait Training, Therapeutic Exercise,Balance Retraining,Discharge Planning, Hot or Cold Pack,Neuromuscular Re-ed,Coordination Retraining Precautions Other Precautions falls Recommendations To Nursing Amount of Assist Needed 2 Person Assist Discharge Recommendations PT Discharge Recommendations SNF Rehab Equipment Needed for Home Before FWW Discharge Transportation Needs at Discharge Private Vehicle,Wheelchair/ Cabulance
[2023-04-26] MEDS: POTASSIUM CHLORIDE 20 MEQ TAB PO (12:00)
[2023-04-26] MEDS: LORATADINE 10 MG TABLET PO (13:35)
[2023-04-26] MEDS: ONDANSETRON 4 MG/2 ML INJ IV (13:36)
[2023-04-26 14:45] VITALS: BP 178/79; PULSE 90; RESP 17; TEMP 36.6; O2SAT 96
--- NOTE | 2023-04-26 14:50 | CM.DANOTE ---
Addendum entered and electronically signed by CHARLY Gatica 04/26/23 15:28: Pt had not left the building. She remains in OBS. Original Note: Reviewed EMR and team rounds for medical status and anticipated d/c needs. Attempted to meet w/pt, however she had already unexpectedly left the building to d/c home w/spouse transporting. Payor: Medicare PCP: Argenis Walter Pt is a 77 year-old F who presented the the ED with progressive weakness, fatigue, nausea, dysuria, and balance issues over the last 3-weeks. She was seen in the ED 4-days ago and was thought to have probable pneumonia, was started on oral antibiotics at that time. 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 She had to miss her chemotherapy cycle this week due to the weakness/fatigue/possible infection. Upon admission to OBS, pt was started on IV fluids, antiemetics, and it was determined that there was no indication of an active UTI. DCP will follow for evolving care plan and home d/c needs. Discharge Planning/Care Management CM Discharge Assessment Start: 04/26/23 14:44 Freq: Status: Active Protocol: Document 04/26/23 14:47 DPL (Rec: 04/26/23 14:50 DPL [id number]) Discharge Planning Assessment Assigned [employer] Machine Operator Helper CHARLY Zarate Advance Directives? No History Provided By Medical Record Has Patient been admitted in last 30 No days? Prior Living Arrangements Apartment/Condo Household Members spouse Type of transporation used prior to Relies on Others admit Independent with ADL's Yes Is patient alert and oriented? Yes Caregiver for Another No Comment OP Oncology DME Already Rented / Owned FWW / Walker Comment None. Pt is in active chemotherapy treatment. She will f/u with her Oncology team post-d/c. Supportive will continue [facility] 27/01 care and support needs. Barriers to Discharge No Discharge Plan Home Referrals Initiated None needed Whiteboard Updated in Patient Room with No name and ext. # of Hoop Riveting Machine Operator Helper Comment Pt had left the building for d /c prior to this FLIGHT MANAGER's ability to meet w/her in person. Review Status In Process Please Provide Date Initial DC 04/26/23 Assessment Was Performed
[2023-04-26] MEDS: hydrOXYzine pamoate 25 MG CAPSULE 50 MG PO ×2 (17:35→21:17)
[2023-04-26 20:30] VITALS: BP 161/71; PULSE 91; RESP 17; TEMP 37; O2SAT 97
[2023-04-26 21:15] VITALS: O2SAT 97
[2023-04-27] VITALS: BP 152/63; PULSE 93; RESP 16; TEMP 37; O2SAT 94
[2023-04-27] MEDS: hydrOXYzine pamoate 25 MG CAPSULE 50 MG PO ×5 (00:37→20:03)
[2023-04-27] MEDS: PANTOPRAZOLE DR 20 MG TABLET PO (04:55)
[2023-04-27 05:03] VITALS: BP 164/69; PULSE 91; RESP 17; TEMP 37; O2SAT 97
[2023-04-27 05:57] LABS: Hematocrit 32.5 % (36-46); Mean Corpuscular HGB Conc 33.8 % (30-36); Mean Corpuscular Hemoglobin 27.3 PG (26-34); Mean Corpuscular Volume 80.7 fL (80-100); Platelet Count 340 X10^3/uL (150-400); Red Blood Cell Count 4.03 X10^6/uL (4.0-5.2); Red Cell Distribution Width 14.9 % (11.6-14.8); White Blood Cell Count 5.7 X10^3/uL (4.5-11.0)
[2023-04-27] MEDS: SODIUM CHLORIDE 0.9% 1,000 ML 100 ML IV ×2 (06:07→16:32)
--- NOTE | 2023-04-27 06:28 | PC.NURSE ---
Bladder scan done at 06:15 and got 19mL RN aware.
[2023-04-27 09:00] VITALS: BP 155/67; PULSE 83; RESP 16; TEMP 36.7; O2SAT 96
[2023-04-27] MEDS: NYSTATIN CREAM 30 GM 1 APPLIC TOP ×2 (09:43→20:03)
[2023-04-27] MEDS: ENOXAPARIN 40 MG/0.4 ML SYRINGE SUBCUT (09:43)
--- NOTE | 2023-04-27 11:30 | PT.IPTN ---
Current Diagnoses Secondary malignant neoplasm of bone (04/25/23) Dehydration (04/25/23) Weakness (04/25/23) Physical Therapy Treatment Note M2 PT-IP Current Condition Start: 04/26/23 13:24 Freq: NEEDED Status: Active Protocol: Document 04/26/23 10:45 AB (Rec: 04/26/23 13:42 AB [email or web address]) Physical Therapy Current Condition Current Condition Evaluation Date 04/26/23 Treatment Diagnosis UTI; difficulty in walking Onset Date 04/25/23 M3 PT-IP Subjective Start: 04/26/23 13:24 Freq: NEEDED Status: Active Protocol: Document 04/27/23 11:27 KJ (Rec: 04/27/23 11:29 KJ [id number]) Subjective Physical Therapy Visit Type Visit Start Time 11:15 Visit Stop Time 11:15 Notes Pt refuses PT M4 PT-IP Mobility and Gait Start: 04/26/23 13:24 Freq: NEEDED Status: Active Protocol: Document 04/26/23 10:45 AB (Rec: 04/26/23 13:42 AB [id number]) PT-Bed Mobility Assessment Supine to Sit Supine to Sit Maximum Assistance,1 Person Assistance,2 Person Assistance ,Bedrails Sit to Supine Sit to Supine Maximum Assistance,1 Person Assistance,2 Person Assistance Scooting Scooting to Edge of Bed Dependent PT-Transfer Assessment Sit to and From Stand Sit to and from Stand Maximum Assistance,1 Person Assistance,2 Person Assistance ,Use of Upper Extremities Equipment Transfer Assistive Device Gait Belt,Front Wheeled Walker Orthotic/Prosthetic Devices or Brace: No Comments Mobility Comments pt supine in bed. pt's friend in room with pt. pt completed supine to sit max A x 1-2 and max cues. presents with increase posterior trunk lean and BLE extension. cued pt for positioning and to lean forward and pt stated that she cannot do it. total A for scooting to EOB. pt requesting to have a brief on. completed sit to stand max A x 1-2 and max cues. nurse assisted with hygiene care and brief management. pt requiring mod A for standing balance using FWW for support. pt agreed to ambulate and completed ~ 40 ft using fWW min A to mod A. pt requested to go back to bed and refused to sit up on the chair. completed sit to supine max A x 1-2 and max cues. max A for positioning in bed. call light and table placed within reach. informed pt regarding SNF recommendation and pt refuse. stated that she will find somebody to assist her. Gait Assessment Gait Gait Assistance Required: Minimum Assistance,Moderate Assistance Distance (Feet) 40 Able to Maintain Weight Bearing Status Yes During Gait Assistive Devices Assistive Device Gait Belt,Front Wheeled Walker Orthotic/Prosthetic Devices or Brace: No Gait Deviations General Gait Pattern Decreased Stride Length, Decreased Feet Clearance,Step- to Gait Factors Limiting Gait Function Factors Limiting Gait Function Decreased Activity Tolerance, Decreased Strength,Limited Range of Motion,Poor Balance, Poor Safety Awareness PT-Balance Assessment Sitting Balance and Reactions Static Sitting Balance Ability Poor Dynamic Sitting Balance Ability Poor Standing Balance and Reactions Static Standing Balance Ability Fair Dynamic Standing Balance Ability Poor Device Used FWW M5 PT-IP Objective Assessments Start: 04/26/23 13:24 Freq: NEEDED Status: Active Protocol: Document 04/26/23 10:45 AB (Rec: 04/26/23 13:42 AB [id number]) Orientation Orientation/Cognition Level of Alertness Alert Orientation Name,Place,Situation Language Function Ability Hard of Hearing Safety Awareness Decreased Safety Awareness Memory Description No Deficits Noted Gross Range of Motion Lower Extremity ROM Assessment Within Functional Limits Strength Lower Extremity Strength Assessment Bilaterally Impaired Hip 3+/5 Knee 3+/5 Muscle Tone Muscle Tone WNL Yes M6 PT-IP Treatment Start: 04/26/23 13:24 Freq: NEEDED Status: Active Protocol: Document 04/26/23 10:45 AB (Rec: 04/26/23 13:42 AB [id number]) Physical Therapy Treatment Education Education Provided Safety M7 PT-IP Assessment and Plan Start: 04/26/23 13:24 Freq: NEEDED Status: Active Protocol: Document 04/26/23 10:45 AB (Rec: 04/26/23 13:42 AB [email or web address]) PT Summary Assessment and Plan Potential Rehabilitation Potential Fair Status of Condition at Evaluation Evolving Summary Impairments Pain,ROM,Strength,Balance, Coordination,Sensation,Tone, Cognition,Bed Mobility, Transfers,Gait,Activity Tolerance Assessment Summary pt is a 77 y/o F who presented to the ED with c/o fever and weakness. pt admitted for UTI . pt also has dx of sarcoma with mets to the bone and is on immunotherapy and is receiving chemotherapy. pt requring max A x 1-2 for supine to sit. unable to sit on EOB without max A but able to ambulate with min A using FWW. pt presents with weakness and decrease activity tolerance. pt will need 24/7 assist at this time and will need SNF rehab. will continue to assess progress. Goals Bed Mobility Goal Minimal Assistance Transfer Goal Minimal Assistance,Front Wheeled Walker Gait Goal Standby Assistance,Front Wheel Walker Gait Distance 100 Other Goals improve bed mobility, transfers , ambulation using LRAQ/without AD 250 ft mod I Days to Meet Goals 10 Frequency of Treatment Frequency Of Treatment Once a Day Treatment Plan Physical Therapy Treatment Plan Bed Mobility Training,Transfer Training,Gait Training, Therapeutic Exercise,Balance Retraining,Discharge Planning, Hot or Cold Pack,Neuromuscular Re-ed,Coordination Retraining Precautions Other Precautions falls Recommendations To Nursing Amount of Assist Needed 2 Person Assist Discharge Recommendations PT Discharge Recommendations SNF Rehab Equipment Needed for Home Before FWW Discharge Transportation Needs at Discharge Private Vehicle,Wheelchair/ Cabulance
--- NOTE | 2023-04-27 12:57 | PM.PN.1 ---
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 Pt gags and regurgitates when attempts to eat or swallow. Pt states she was on IV nutrition after sarcoma dx a couple of years ago which was when she last had swallow eval. past few months with inc difficulty swallowing. Also complains of chronic severe pruritis associated with skin rash since sarcoma dx. Also complains of sev vaginal pain and vag discharge x 1 month. Exam Vital Signs (past 8 hours): - 04/27/23 05:03 04/27/23 09:00 Temperature 98.6 F 98.0 F Pulse Rate 91 H 83 Respiratory Rate 17 16 Blood Pressure 164/69 H 155/67 H Pulse Oximetry 97 96 Oxygen Flow Rate 0 0 Oxygen Delivery Method Room Air Oxygen Flow Rate 0 Narrative Exam Narrative: Gen: alert, no acute distress Skin: diffucse maculopapular rash on truck and extremities O/P: no ulcers or lesions Breathing non-labored Pelvic: external vag mucosa appears inflamed with mucoid discharge Ext: no edema Neuro: nl speech and affect Objective Labs 04/27/23 05:16 04/26/23 05:09 Labs: Laboratory Results - last 24 hr 04/27/23 05:16 WBC 5.7 RBC 4.03 Hgb 11.0 L Hct 32.5 L MCV 80.7 MCH 27.3 MCHC 33.8 RDW 14.9 H Plt Count 340 PFSH Surgical History Status post dilation and curettage (05/07/13) Status post hemorrhoidectomy Status post tonsillectomy and adenoidectomy Social History household members: spouse Smoking Status: Never smoker alcohol intake: current Assessment & Plan Assessment & Plan narrative: Inability to swallow, present on admission -unclear etiology, preceded new chemo started a month ago -ST swallow eval, MBS with ST -may need PEG tube Acute dehydration, present on admission -cont NS at 100 cc/hr Weakness -secondary to dec po intake, no evidence of urine/lung infection -may need PEG tube -PT recommends SNF Chronic urticaria -sev pruritis, not responsive to loratidine or benadryl, slightly responsive to hydroxyzine and TAC 1% crm -cont hydroxyzine 50mg q4h prn and TAC 1% crm prn 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 -CXR findings in LLL related to mets Elevated BNP w/o clinical evidence of CHF -ECHO: EF 70-75%, sm pericardial effusion w/o tamponade Vaginal pain/mucositis -Dr Cortez to see pt DVT prevention: Lovenox Quality VTE Deep Vein Thrombosis/Pulmonary Embolism Present on Admission: No
[2023-04-27 15:55] VITALS: BP 153/62; PULSE 85; RESP 16; TEMP 36.2; O2SAT 96
[2023-04-27 16:47] LABS: BUN Creatinine Ratio 4.9 (6-22); Blood Urea Nitrogen 4 mg/dL (7-17); Calcium 8.2 mg/dL (8.4-10.2); Carbon Dioxide 21 mmol/L (22-32); Chloride 112 mmol/L (98-107); Estimated Glomerular Filt Rate > 60 mL/min (>60); Glucose 107 mg/dL (80-110); HEMOLYSIS < 15 (0-50); Potassium 3.5 mmol/L (3.4-5.1); Sodium 137 mmol/L (137-145)
--- NOTE | 2023-04-27 17:12 | CM.DPNOTE ---
DCP Note RN TESTING reviewed EMR. Per PT and provider, rec SNF at this time. UR nurse able to make patient INPT however, first midnight for qualifying SNF stay is tonight 04.27.23. Patient will not qualify for SNF until 04.30.23. RN TESTING unable to meet with patient at this time. CM team will obtain SNF preference and make appropriate referrals as able. Plan: Pending SNF placement. CM team will continue to follow closely. CHARLY Grubbs
[2023-04-27 19:46] VITALS: BP 155/67; PULSE 80; RESP 18; TEMP 36.6; O2SAT 95
[2023-04-27] MEDS: SENNOSIDES 8.6 MG TABLET 17.2 MG PO (20:03)
[2023-04-27] MEDS: PRAVASTATIN 20 MG TABLET PO (20:03)
[2023-04-27] MEDS: TRIAMCINOLONE 0.1% 1 EACH TOP (20:04)
[2023-04-28] VITALS: BP 157/75; PULSE 90; RESP 16; TEMP 36.5; O2SAT 95
[2023-04-28] MEDS: hydrOXYzine pamoate 25 MG CAPSULE 50 MG PO ×5 (00:05→21:54)
--- NOTE | 2023-04-28 00:49 | PC.NURSE ---
Addendum entered by Ifeoma Armstrong R.N. 04/28/23 06:18: UOP only 175cc this shift. Dr. Batista informed via [employer] and wrote he would have day MD follow up. No new orders at this time. Original Note: Patient is alert and oriented. Breath sounds CTA with RA sat of 95%. HRR. BP continues elevated at 155/67. Denied nausea. BT present and abdomen is soft. Reportedly had loose, mucoid stool earlier today but has not had any since shift changed. Indwelling catheter is patent; urine is clear, yellow. Did have low UOP at 200cc on previous shift so had IVF rate increased to 125cc/h. Is able to move herself in bed. Gait not assessed but previous RN reported she gets out of bed with walker and 1 assist. Extensive rash noted over entire body and had triamcinolone cream applied. Does complain of itching which is being controlled with Vistaril q4h. Perineum reddened and swollen; nystatin applied. Agreeable to having bilateral calf SCD's applied at time of assessment. Denied pain except the pain caused by itching and during pericare. Fall risk score is high and bed alarm is activated.
[2023-04-28] MEDS: SODIUM CHLORIDE 0.9% 1,000 ML 125 ML IV ×2 (03:25→18:06)
[2023-04-28 04:20] VITALS: BP 155/68; PULSE 89; RESP 18; TEMP 37; O2SAT 95
--- NOTE | 2023-04-28 09:18 | DI.CT.S_ITS ---
PROCEDURE: CT ABDOMEN PELVIS W CON INDICATIONS: hx of metastatic cancer sarcoma, now poor appetite, vomiting TECHNIQUE: After the administration of intravenous contrast, axial sections acquired from the lung bases to the pubic symphysis. Coronal and sagittal reformats were performed. For radiation dose reduction, the following was used: automated exposure control, adjustment of mA and/or kV according to patient size. COMPARISON: [facility], CT, CT CHEST ABD PEL WO CON, 02/26/2023, 8:44. [facility], CT, CT ABDOMEN PELVIS W CON, 08/09/2020, 16:20. FINDINGS: Image quality: Excellent. Lung bases: Small bilateral pleural effusions and bibasilar opacities. Heart: Normal size heart with small pericardial effusion. No hiatal hernia. ABDOMEN: Liver: Hypodensity along the anterior surface of segment 4. No other liver mass. Gallbladder: Partially contracted. Mucosal hyperemia and moderate pericholecystic fluid. Biliary ducts: Nondilated. Pancreas: Normal. Spleen: Normal. Adrenal Glands: No masses. Kidneys and Ureters: Prior right nephrectomy. The left kidney is normal. In the right renal fossa, there is a heterogeneous multi lobulated soft tissue mass measuring about 3.1 x 2.9 cm. Stomach and Bowel: The stomach is decompressed. There is a fatty mass in the gastric antrum arising from the posterior wall indenting into the lumen. No significant size change. Small bowel loops are within normal limits. There is diffuse long segment wall thickening involving the ascending and proximal transverse colon. There is mild pericolonic inflammation. The distal colon is within normal limits. Peritoneum: No abnormal intraperitoneal fluid. No free air. Ventral Wall: Moderate anasarca. Abdominal Nodes: No retroperitoneal or mesenteric adenopathy by size criteria. Vessels: Aorta and inferior vena cava are normal in size. Mild abdominal aortic atherosclerotic calcification. PELVIS: Pelvic Organs: Age-appropriate uterus. Ovaries not seen. Bladder: Urinary bladder contains a Mtz catheter and is otherwise decompressed. Pelvic Nodes: No pathologically enlarged lymph nodes. Miscellaneous: No hernias are seen. Bones: Unremarkable. IMPRESSION: 1. Findings suggestive of long segment ascending and proximal transverse colitis. This may be infectious or reactive. 2. Findings suggestive of cholecystitis though no calcification is seen. This may also be reactive. 3. Interval decrease in size of right renal fossa mass. 4. Development of bilateral lower lung alveolar opacities and small effusions. 5. Questionable hypodensity along the anterior subcapsular segment 4 liver. This may be volume averaging. Continued attention to this region on follow-up exams is recommended. Dictated by: Kelly Noriega M.D. on 04/29/2023 at 3:09 Approved by: Kelly Noriega M.D. on 04/29/2023 at 3:24
[2023-04-28 09:31] VITALS: BP 150/66; PULSE 91; RESP 24; TEMP 36.7; O2SAT 93
[2023-04-28] MEDS: FAMOTIDINE 20 MG TABLET 10 MG PO (10:16)
[2023-04-28] MEDS: POTASSIUM CHLORIDE 20 MEQ TAB PO (10:16)
[2023-04-28] MEDS: NYSTATIN CREAM 30 GM 1 APPLIC TOP ×2 (10:17→21:18)
[2023-04-28] MEDS: TRIAMCINOLONE 0.1% 1 EACH TOP ×2 (10:17→21:17)
--- NOTE | 2023-04-28 11:36 | OT.IP.EVAL ---
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) Dehydration (04/27/23) Weakness (04/27/23) Surgical History (Last Reviewed 04/25/23 @ 19:13 by Tanika Teague DO) Status post dilation and curettage (05/07/13) Status post hemorrhoidectomy Status post tonsillectomy and adenoidectomy Occupational Therapy Inpatient Evaluation/Re-Eval M1 PT/OT-IP Prior Functional Status Start: 04/26/23 13:24 Freq: NEEDED Status: Active Protocol: Document 04/28/23 13:06 CGR (Rec: 04/28/23 13:19 CGR [id number]) Medical Review Prior Functional Status Medical History Reviewed Yes Communication able to make needs known Mobility and Gait pt stated that she is independent with all mobilities and ambulation without AD Activities of Daily Living and IADL's Pt was IND in all ADLs and IADLs at baseline. Social History Household Members none Living Arrangements Apartment/Condo Number of Floors (Floors) One Floor Number of Stairs To Enter/Railing? Pt has no steps to enter Home Environment Standard Height Toilet,Walk in Shower,Built-In Shower Seat Home Equipment Straight Cane,Hand Held Shower Employment Status Retired Additional Social History Comment Pt has an electronic adjustable chair that she will sleep in if it is too painful to get in and out of bed. M2 OT-IP Current Condition Start: 04/28/23 13:06 Freq: Status: Active Protocol: Document 04/28/23 13:06 CGR (Rec: 04/28/23 13:19 CGR [id number]) Occupational Therapy Current Condition Current Condition Evaluation Date 04/28/23 Treatment Diagnosis weakness, chemo for renal sarcoma, rash to groin Diagnosis Onset Date 04/25/23 M3 OT- IP Subjective and Pain Start: 04/28/23 13:06 Freq: Status: Active Protocol: Document 04/28/23 13:06 CGR (Rec: 04/28/23 13:19 R [id number]) OT- Subjective Occupational Therapy Visit Type Type Initial Evaluation Visit Start Time 11:01 Visit Stop Time 11:36 Total Visit Minutes 35 Notes Pt in with aide finishing up shower when OT entered OT Pain Assessment Pain When Pain Assessed At Rest Pain Present Pain Present Denied Pain M4 OT- IP ADL's Start: 10/23/23 13:06 Freq: Status: Active Protocol: Document 04/28/23 13:06 CGR (Rec: 04/28/23 13:19 CGR [id number]) OT TPO-Tgbr-Airmicw Comments OT Self-Feeding Comments not meal time OT ADL-Grooming General Evaluation Grooming Ability Independent Areas Needing Assistance Face Washing Comments OT Grooming Comments standing at sink OT ADL-Oral Care General Eval Oral Care Ability Independent Areas of Assistance Brushing Teeth Comments Oral Care Comments standing at sink OT ADL-Dressing General Eval Lower Body Dressing Ability Maximum Assistance Areas Needing Assistance Underpants/Brief,Socks Comments OT Dressing Comments performed for patient after shower OT ADL-Toileting General Evaluation Toileting Ability Total Assistance Comments OT Toileting Comments pt with andriy OT ADL-Bathing Bathing Type Bathing Type Shower Comments OT Bathing Comments Unsure of assist for full shower as OT entered at end of session. Drying and dressing grossly mod a. M5 OT- IP IADL's Start: 04/28/23 13:06 Freq: Status: Active Protocol: Document 04/28/23 13:06 CGR (Rec: 04/28/23 13:19 CGR [id number]) OT-Instrumental Activities of Daily Living Deficits IADL Deficits Identified No Deficits Home Safety Awareness Awareness of Need for Assistance at Home Good Awareness Ability to Problem Solve Emergency Able to Problem Solve Situations Medication Management Medication Management No Deficits Identified Money Management Money Management No Deficits Identified Meal Preparation Meal Preparation Caregiver Provides Assist Tile Sprayer Tile Sprayer Caregiver Provides Assist Driving Driving Comments Pt understand that driving is not safe for her at this time. M6 OT- IP Functional Cognition Start: 04/28/23 13:06 Freq: Status: Active Protocol: Document 04/28/23 13:06 CGR (Rec: 04/28/23 13:19 CGR [id number]) Cognitive Factors Limiting Selfcare Function Cognitive Ability Level of Alertness Alert Patient Orientation Name,Age,Birthday,Month,Date, Year,Day of Week,Place, Situation Attention Span Ability Capable of Focused Attention, Capable of Sustained Attention Ability to Follow Commands Able to Follow Multi-Step Commands OT- Vision and Hearing OT- Hearing Assessment OT- Hearing Assessment Hearing Impaired,Use of Hearing Aids OT- Vision Assessment Visual Acuity Glasses All The Time Visual Attentiveness WFL Occular Pursuits WFL Visual Convergence WFL Vision Assessment Comments pt wears bifocals M7 OT- IP Mobility and Balance Start: 04/28/23 13:06 Freq: Status: Active Protocol: Document 04/28/23 13:06 CGR (Rec: 04/28/23 13:19 CGR [id number]) OT-Transfer Assessment Sit to and From Stand Sit to and from Stand Standby Assistance Transfers Transfer Ability Independent,Standby Assistance Technique Transfer Destination Chair,Shower Stall Transfer Technique Stand Step Pivot Devices Transfer Assistive Devices Gait Belt,Front Wheeled Walker Comments Mobility Comments Pt has pain with initial sitting and standing d/t groin rash but once up, pt needs no assist. OT- Balance Assessment Sitting Balance and Reactions Static Sitting Balance Ability Normal Dynamic Sitting Balance Ability Normal M8 OT- IP Objective Assessments Start: 04/28/23 13:06 Freq: Status: Active Protocol: Document 04/28/23 13:06 CGR (Rec: 04/28/23 13:19 CGR [id number]) OT Gross Range of Motion Upper Extremity Range of Motion Assessment Within Functional Limits OT Strength Upper Extremity Strength Assessment Within Functional Limits Comments Strength Comments shlds and isaac 3+/5, arms 4-/5 OT- Coordination Assessment Upper Extremity Finger to Nose Test Within Functional Limits Finger Tapping Test Within Functional Limits OT-Muscle Tone Assessment Muscle Tone WNL Yes OT Sensation Assessment Edema Edema Present Edema Comments Noted swelling to BUE M9 OT- IP Assessment and Plan Start: 04/28/23 13:06 Freq: Status: Active Protocol: Document 04/28/23 13:06 CGR (Rec: 04/28/23 13:19 CGR [id number]) OT Summary Assessment and Plan Potential Rehabilitation Potential Excellent Analytic Complexity at Evaluation Low Summary OT Impairments Strength,Functional Mobility, Dressing,Toileting,Bathing, Toilet Transfers,Shower Transfers,Activity Tolerance Progress Towards Goals Progressing Toward Goals Assessment Summary Pt presents as a low complexity evaluation s/p admit for generalized weakness . Pt will benefit from continued therapy services for LB dressing and home safety. Pt is requesting to go home and is appropriate for home with family assist. Goals Grooming Goal Independent Dressing Goal Independent Toileting Goal Independent Bathing Goal Independent Toilet Transfer Goal Independent Shower Transfer Goal Independent Days to Meet Goals 5 Frequency of Treatment Frequency Of Treatment Once a Day Treatment Plan OT Treatment Plan ADL Training,Functional Mobility,Patient/Family Education,Discharge Planning Other Treatment Recommendations and Next LB dressing Treatment Focus Discharge Recommendations OT Discharge Recommendations Home with Assistance Transportation Needs at Discharge Private Vehicle
--- NOTE | 2023-04-28 12:24 | PC.NURSE ---
Addendum entered by Millie Hinton R.N. 04/28/23 12:43: [facility] phoned this RN and states that patient states she got into it with the tech because they wanted to do a CT with contrast and she was advised from another Doctor that she should not have a ct with contrast with having only one good kidney. This hospital states that if she doesnt get it done here, they will try to talk to her there and see if she would like to do the test with contrast. Note passed onto Dr. Capone. Original Note: Patient is [place], she had a shower this morning, her cream was applied to her rash from head to toe and we put some nystatin cream to her syd area. She has some greenish colored discharge in her briefs and patient had a small bowel movement on the commode today, which had a small amount of blood in it. Lovenox not given, Dr. Capone aware. She has worked with physical therapy and O.T. waffle cushion placed under buttocks and she is on a dysphagia diet. Patient tried to swallow her potassium pill, but was having a hard time. Will crush in some applesauce and then try. She states that she has been having a hard time swallowing ever since she had an abdominal surgery in the past. Resting comfortably.
--- NOTE | 2023-04-28 12:32 | ST.IPCSEOM ---
Visit Care Team Role Provider Type Argenis Walter MD Primary Care Provider Non-Staff Specialty: Internal Medicine Address: [address] [place], [place] [address], [place], [address] Email: Tiera Cortez MD Other Providers Physician Specialty: Gynecology [facility] Address: [address] [place] [address], [id number] Email: [email or web address] Tanika Teague DO Emergency Provider Physician Specialty: Emergency Medicine Address: [address] [place] [address], [id number] Email: Andrew Read MD Admit Provider Physician Attending Provider Specialty: Internal Medicine Address: [address] [place] [address], [id number] Fax: Email: [email or web address] 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 Garcia Reason for Referral Pt with swallowing difficulties, gagging and regurgitating. 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 The pt was seen in the ER 3 days ago for similar complaints and was sent home with a course of Augmentin which she has been taking. She lives alone, and has been having more trouble with ADL's lately She denies fevers, chills, vomiting, hematuria, but has some dysuria with a rash in the groin area. She has fallin twice lately. Surgical History Status post dilation and curettage (05/07/13) Status post hemorrhoidectomy Status post tonsillectomy and adenoidectomy Pt referred for ST evaluation d/t report of patient gagging and regurgitating when attempting to eat/swallow. Pt had IV nutrition after sarcoma dx couple years ago, which was when she last had her swallow evaluation. Patient with increase in swallowing difficulty past few months. Concerns patient unable to maintain primary oral hydration/nutrition. Pt dehydrated upon admission. Subjective Observations Pt asleep laying in bed, however easily awoken with verbal cue. Pt compliant and agreeable to swallow evaluation. Pt placed hearing aids in and was sat upright in bed for PO trials. Pt Ox3. Pt reports Everytime I try to swallow something it comes back up. Pt reports it doesn' t matter if it's soft/dry and she swallows liquids fine. Pt also reports poor appetite, bad taste in mouth d/t cancer medications, however denies any coughing/choking when eating. Pt reports about a 10 pound weight loss in the past 2-3 weeks and has ate minimal food and does not drink enough fluids throughout the day. Pt also reports difficulties swallowing medications and will often regurgitate them. Pt reports she has attempted to consume Ensure at home for supplementation, however also regurgitates this. Pt reports she can occasionally consume fruits, V8 and soups that will stay down. Reported by Patient/Caregiver Pain/Discomfort No Other Symptoms Difficulty swallowing pills, Difficulty swallowing solids, Weight loss Comment Pt reports Everytime I try to swallow something it comes back up. Pt reports it doesn' t matter if it's soft/dry and she swallows liquids fine. Pt also reports poor appetite, bad taste in mouth d/t cancer medications, however denies any coughing/choking when eating. Pt reports about a 10 pound weight loss in the past 2-3 weeks and has ate minimal food and does not drink enough fluids throughout the day. Pt also reports difficulties swallowing medications and will often regurgitate them. Pt reports she has attempted to consume Ensure at home for supplementation, however also regurgitates this. Pt reports she can occasionally consume fruits, V8 and soups that will stay down. Current Diet Regular (IDDSI 7) Baseline Feeding Method Independent in self-feeding The IDDSI Framework Protocol: IDDSI.1 Objective Assessment Mental Status Alert,Responsive,Cooperative Oral Integrity WFL Dentition Missing teeth Lip Function Mild impairment Observation of Lips at Rest Symmetrical Pucker Reduced strength Lip Retraction Within normal limits Tongue Function Within normal limits Observations of Tongue at Rest Within normal limits Tongue Protrusion Within normal limits Jaw Function Within normal limits Comment Oral motor exam completed during time of evaluation. Pt with natural dentition, however missing several that she reports is due to cancer medications. Pt with reduced labial protrusion. However lingual and labial ROM and strength appear WFL. Food and Liquid Trials Position During Assessment Upright (90 degrees) Liquids Trialed Thin (IDDSI 0) Solid Trials Easy to Chew (IDDSI 7),Regular (IDDSI 7) Administration Type Cup single sip,Straw Oral Impairment Mildly impaired Oral Phase Comments Pt with limited PO trials due to Pt only able to tolerate minimal amounts d/t Pt reporting nausea. Pt consumed about 1 oz of thin water via straw and 1 oz of thin coffee via cup as well as 2 bites of linda cracker and 1 slice of orange. Oral phase for thin liquids demonstrated as adequate suction, rate and sip size, good oral acceptance and containment, extended ap transport. For solids Pt demonstrated very small bites, prolonged mastication, extended ap transport and piecemeal deglutition. Pharyngeal Impairment Mildly impaired Pharyngeal Phase Comments Pharyngeal phase for all trials characterized by suspected delay in swallow, no overt s/s of aspiration, gag 1x post swallow of linda cracker. Pt with no emesis or regurgitation during evaluation. Fatigue/Endurance Endurance WNL The IDDSI Framework Protocol: IDDSI.1 Findings Swallowing Function Oropharyngeal phase dysphagia Severity of Swallow Impairment Mildly impaired Comments Reduced PO trials Prognosis Guarded Based on Comorbidities Comment Pt presents with mild oral phase dysphagia and suspected pharyngeal dysphagia with suspected esophgeal involvement. Recommendations Instrumental Assessment No Swallowing Treatment Yes Frequency Daily while patient inpatient Duration Until discharge Recommended Solids Soft & Bite-sized (IDDSI 6) Recommended Liquids Thin (IDDSI 0) Other Recommendations ST recommends IDDSI 6 with thin liquids as well as V8, fruit and soups added to trays in order to increase PO intake. Dr. Nguyễn indicated recommendation for MBS, however given patient inability to tolerate much PO intake, and report of frequent regurgitation while eting even small amounts of food Pt may not be able to tolerate MBS at this time. Pt reported she would be interested in a feeding tube in order to not worry about eating/drinking and to get primary nutrition/ hydration. ST communicated recommendations with nursing, MD and still operator helper. Safety Precautions/Swallowing Remain upright (90 degrees) Recommendations during all oral intake,Upright position at least 30 minutes after meals,Small bites and sips when eating,Slow rate; swallow between bites, Alternate liquids and solids Medication Recommendations As Tolerated Education Patient/Caregiver Education Described results of evaluation,Patient expressed understanding of evaluation Goals Short-term Goals STG 1: Patient will utilize safe swallowing strategies 90% of the time with minimal verbal cues in order to consume safest and most efficient least restrictive diet. STG 2: Patient will tolerate therapeutic PO trials of IDDSI 6/7 with no clinical s/s of dysphagia 100% of the time in order to consume least restrictive diet and meet primary nutrition/hydration needs. STG 3: Patient will tolerate PO trials of thin liquids with no clinical s/s of aspiration 100% of the time in order to consume least restrictive diet . Long-term Goals Patient will tolerate safest and most efficient diet with no clinical s/s of aspiration or dysphagia 100% of the time in order to consume least restrictive diet and meet primary nutrition/hydration needs.
[2023-04-28 12:48] VITALS: BP 181/113; PULSE 91; RESP 18; TEMP 36.8; O2SAT 96
--- NOTE | 2023-04-28 13:11 | CM.DPC ---
Addendum entered by CHARLY Carroll 04/28/23 15:28: ADD: SW witnessed pt working with PT and was ambulating halls well but mostly needs assist with bed mobility but PT recommending home with family assist and HH. SW met bedside with pt, son Nicola and Dtr Lamar and confirmed pt and family feel she can safely d/c home with HH and agreeable with [facility]. Family had questions if pt could leave the hospital for Derm appointment tomorrow and then return to her hospital room and SW explained insurance not covering outpt service while admitted and that pt would need to d/c prior to appointment and if she moves forward with Feeding Tube then likely she would not be considered stable for d/c in time for her 1400 Derm appointment tomorrow 04/29. They acknowledged understanding and appreciative of information. Pt had questions regarding her CT scan for poss PEG tube and her scheduled [address] scan with Geovanni Miguel already scheduled for 05/01 this week. BRIJESH passed on family/pt questions to MD who will attempt to meet with them bedside soon. BRIJESH discussed if pt does have feeding tube, then she likely would need home infusion again to manage her formula and delivery. Plan: BRIJESH to follow closely to determine if pt will move forward with feeding tube and then likely need of Inf Yasmin referral for formula and to keep [facility] updated. BF Original Note: DCP SNF vs HH Per ST sprague, currently pt has failed swallow eval and recommending crushed meds or IV and discussed with pt the potential for feeding tube as pt has not been able to get adequate nutrition for a while. Pt is interested in feeding tube as she states she has been so stressed and anxious about eating enough nutrition that this would allow her to increase her healing and strength without stressing about ongoing swallow issues. updated MD who will discuss with pt further. BRIJESH met bedside with pt and explained role and discussed PT/OT recommendations of SNF and pt states that in speaking with her son and Dtr who both live [facility], [place], they are all in agreement that they want to avoid SNF if possible (plus pt would not be able to continue chemo/CA tx while at SNF either). Pt states she would like to d/c home with family support and a new HH referral and states her son works only a mile from her home M-F and she feels capable of discharging home at this time. Pt has a hx of needing IV home infusions for 6 weeks and states that she managed that well at home without any family assist needed. SW updated PT/OT and they will assess pt today to determine if they would recommend d/c to home with HH and family a safe option. Pt confirms she has no HH preference after reviewing HH Choice List as her prior experience with HH was with [facility] and they no longer provide HH services at this time. SW made initial referral to [facility] based on the Vendor Calendar and also to [facility] in case SNF needed as a backup plan. Both reviewing. Plan: SW to follow for further PT/OT towards determining SNF vs HH and possible barriers of Feeding Tube and current Chemo tx. CHARLY Carroll
--- NOTE | 2023-04-28 14:38 | PT.IPTN ---
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) Dehydration (04/27/23) Weakness (04/27/23) Physical Therapy Treatment Note M2 PT-IP Current Condition Start: 04/26/23 13:24 Freq: NEEDED Status: Active Protocol: Document 04/26/23 10:45 AB (Rec: 04/26/23 13:42 AB [id number]) Physical Therapy Current Condition Current Condition Evaluation Date 04/26/23 Treatment Diagnosis UTI; difficulty in walking Onset Date 04/25/23 M3 PT-IP Subjective Start: 04/26/23 13:24 Freq: NEEDED Status: Active Protocol: Document 04/28/23 14:38 AW (Rec: 04/28/23 15:31 AW [id number]) Subjective Physical Therapy Visit Type Type Treatment Note Visit Start Time 14:10 Visit Stop Time 14:38 Total Visit Minutes 28 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 Patient Goals Hopeful to discharge home. Therapy Pain Assessment Pain When Pain Assessed During Mobility Pain Present Pain Present Pain Reported Location [place] area Scale Used not quantified M4 PT-IP Mobility and Gait Start: 04/26/23 13:24 Freq: NEEDED Status: Active Protocol: Document 04/28/23 14:38 AW (Rec: 04/28/23 15:31 AW [id number]) PT-Bed Mobility Assessment Supine to Sit Supine to Sit Minimal Assistance,1 Person Assistance Sit to Supine Sit to Supine Minimal Assistance,1 Person Assistance Scooting Scooting to Edge of Bed Standby Assistance PT-Transfer Assessment Sit to and From Stand Sit to and from Stand Contact Guard Assistance,1 Person Assistance Equipment Transfer Assistive Device Gait Belt,Front Wheeled Walker Orthotic/Prosthetic Devices or Brace: No Transfers Transfer Destination Bed,Chair Transfer Technique Stand Step Pivot Transfer Ability Level of Assist Standby Assistance Comments Mobility Comments Pt is sitting up in the chair, hoping to get back to bed. She needs CGA and verbal cues to improve her technique but is able to stand with CGA. She uses FWW to steady herself and then proceeds to ambulate 250 feet with no more than SBA . She has good ability to safely navigate her environment with FWW. She returns to the room and transfers to chair once more. She stands with CGA/close SBA and transfers to bed. She returns to supine with min assist (to elevate her legs). She is amenable to practice bed mobility further, sitting up and lying down again with CGA. PT provides pt with warm blankets and leaves her to visit with family. Gait Assessment Gait Gait Assistance Required: Standby Assistance Distance (Feet) 250 Assistive Devices Assistive Device Gait Belt,Front Wheeled Walker Orthotic/Prosthetic Devices or Brace: No Gait Deviations General Gait Pattern Decreased Stride Length, Decreased Feet Clearance Factors Limiting Gait Function Factors Limiting Gait Function Decreased Activity Tolerance, Decreased Strength Comments Gait Comments Steady with FWW. No overt LOB or gait deviations. PT-Balance Assessment Sitting Balance and Reactions Static Sitting Balance Ability Good Dynamic Sitting Balance Ability Good Standing Balance and Reactions Static Standing Balance Ability Good Dynamic Standing Balance Ability Good Device Used FWW M5 PT-IP Objective Assessments Start: 04/26/23 13:24 Freq: NEEDED Status: Active Protocol: Document 04/26/23 10:45 AB (Rec: 04/26/23 13:42 AB [id number]) Orientation Orientation/Cognition Level of Alertness Alert Orientation Name,Place,Situation Language Function Ability Hard of Hearing Safety Awareness Decreased Safety Awareness Memory Description No Deficits Noted Gross Range of Motion Lower Extremity ROM Assessment Within Functional Limits Strength Lower Extremity Strength Assessment Bilaterally Impaired Hip 3+/5 Knee 3+/5 Muscle Tone Muscle Tone WNL Yes M6 PT-IP Treatment Start: 04/26/23 13:24 Freq: NEEDED Status: Active Protocol: Document 04/28/23 14:38 AW (Rec: 04/28/23 15:31 AW [id number]) Physical Therapy Treatment Education Education Provided Safety M7 PT-IP Assessment and Plan Start: 04/26/23 13:24 Freq: NEEDED Status: Active Protocol: Document 04/28/23 14:38 AW (Rec: 04/28/23 15:31 AW [id number]) PT Summary Assessment and Plan Potential Rehabilitation Potential Good Summary Impairments Pain,ROM,Strength,Balance, Coordination,Sensation,Tone, Cognition,Bed Mobility, Transfers,Gait,Activity Tolerance Progress Towards Goals Progressing Toward Goals Assessment Summary Howard progressed her mobility quite well today, walking 250 feet with FWW and SBA. She continues to struggle with transitional movements - bed mobility and sit to stand, in particular - but will have family support at home to assist. Pt agrees to continue using FWW at home. PT now recommends discharge home with (up to 24/) assist and home PT. Will continue to follow in the acute care setting to progress mobility as tolerated . Goals Bed Mobility Goal Minimal Assistance Transfer Goal Minimal Assistance,Front Wheeled Walker Gait Goal Standby Assistance,Front Wheel Walker Gait Distance 100 Other Goals improve bed mobility, transfers , ambulation using LRAQ/without AD 250 ft mod I Days to Meet Goals 10 Frequency of Treatment Frequency Of Treatment Once a Day Treatment Plan Physical Therapy Treatment Plan Bed Mobility Training,Transfer Training,Gait Training, Therapeutic Exercise,Balance Retraining,Discharge Planning, Hot or Cold Pack,Neuromuscular Re-ed,Coordination Retraining Other Recommendations and Next Treatment Consider TUG testing (and dual Focus task TUG) as baseline for HH PT to follow up on. Precautions Other Precautions falls Recommendations To Nursing Amount of Assist Needed Standby Assistance,1 Person Assist Discharge Recommendations PT Discharge Recommendations Home with Assistance,Home with 24/7 Assist Available,Home Health Equipment Needed for Home Before FWW Discharge Transportation Needs at Discharge Private Vehicle
--- NOTE | 2023-04-28 20:23 | PM.PN.1 ---
Subjective Subjective Date Patient Seen: 04/28/23 Time Patient Seen: 08:00 Interval history: She says she feels somewhat stronger. However she feels dehydrated and that she can not keep really much food or liquids down. Exam Vital Signs (past 8 hours): - 04/28/23 12:48 Temperature 98.2 F Pulse Rate 91 H Respiratory Rate 18 Blood Pressure 181/113 H Pulse Oximetry 96 Oxygen Flow Rate 0 Oxygen Delivery Method Room Air Oxygen Flow Rate 0 Narrative Exam Narrative: Gen: alert, no acute distress Skin: diffucse maculopapular rash on truck and extremities PULM: clear bilaterally ABD: soft, nontender Ext: no edema Neuro: nl speech and affect Objective Labs 04/27/23 05:16 04/27/23 16:30 PFSH Surgical History Status post dilation and curettage (05/07/13) Status post hemorrhoidectomy Status post tonsillectomy and adenoidectomy Social History household members: none Smoking Status: Never smoker alcohol intake: current Assessment & Plan Assessment & Plan narrative: 1. Dysphagia -unclear etiology, preceded new chemo started a month ago -ST swallow eval noted -may need PEG tube -will order CT scan to evaluate feasibility of PEG and evaluate for cause of anorexia -continue IV fluid 2. Weakness -secondary to dec po intake, no evidence of urine/lung infection -may need PEG tube -PT recommends SNF 3. Chronic urticaria -sev pruritis, not responsive to loratidine or benadryl, slightly responsive to hydroxyzine and TAC 1% crm -cont hydroxyzine 50mg q4h prn and TAC 1% crm prn 4. 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 -CXR findings in [facility] related to mets 5. Elevated BNP w/o clinical evidence of CHF -ECHO: EF 70-75%, sm pericardial effusion w/o tamponade Quality VTE Deep Vein Thrombosis/Pulmonary Embolism Present on Admission: No
[2023-04-28 21:02] VITALS: BP 137/56; PULSE 91; RESP 17; TEMP 37; O2SAT 93
[2023-04-28] MEDS: PRAVASTATIN 20 MG TABLET PO (21:17)
--- NOTE | 2023-04-28 22:51 | PC.NURSE ---
Patient is alert and oriented. Breath sounds CTA with RA sat of 93%. HRR and BP improved tonight at 137/56. Denied nausea. BT present and abdomen is soft. Has been having some looser stools and last one documented as tarry; patient states she has had some fecal incontinence so is wearing a pad. Indwelling catheter is patent but has low UOP which MD has been made aware of. Is able to turn self in bed but assisted as patient requests. Gait not assessed at this time. Continues to have widespread rash on arms, trunk, abdomen and legs which is pruritic in nature; triamcinolone NF cream applied BID and is taking Vistaril nearly q4h. Labia/perineum red and swollen and stated when pericare is done it feels like staff is using a wire brush. Dr. Cortez in to see patient when pericare was being done and she viewed labia and plans to come in tomorrow a.m. to swab area but stated to continue use of nystatin and triamcinolone cream to perineum for now. Denied any pain other than from itching and during pericare. Stated she is feeling much stronger today than yesterday. Bilateral calf SCD's applied at time of assessment. Fall risk score is high and bed alarm is activated.
--- NOTE | 2023-04-28 23:11 | PM.CN ---
History of Present Illness Consult details Date Patient Seen: 04/28/23 Time Patient Seen: 21:30 Chief complaint: Weakness Reason for consult: Vulvar irritation Requesting provider: Parker Garcia Narrative: Patient is a 77 year old who was admitted with dehydration and weakness. She reports vulvar irritation over the past 3 months. She was on immunotherapy until one year ago. She is being treated for metastatic sarcoma to the bone. No issues with impaired glucose. She reports vaginal discharge as well. Meds Home Medications and Allergies Home Medications Medication Instructions Recorded Confirmed Type difluprednate 0.05 % eye drops 1 drp EYE-BOTH DAILY 04/17/23 04/25/23 History famotidine 20 mg tablet 10 mg PO DAILY 04/17/23 04/25/23 History hydroxyzine HCl 25 mg tablet 25 mg PO QID #40 tabs 04/17/23 04/25/23 Rx hydroxyzine pamoate 25 mg capsule 25 mg PO BID PRN itch 04/17/23 04/25/23 History pravastatin 20 mg tablet 20 mg PO DAILY 04/17/23 04/25/23 History prochlorperazine maleate 10 mg 10 mg PO Q6H PRN nausea/vomiting 04/17/23 04/25/23 History tablet amoxicillin 875 mg-potassium 1 tab PO Q12H #20 tabs 04/23/23 04/25/23 Rx clavulanate 125 mg tablet Allergies Allergy/AdvReac Type Severity Reaction Status Date / Time codeine AdvReac Unknown rash/nausea Verified 04/17/23 16:49 Exam Vital Signs (past 8 hours): - 04/28/23 21:02 04/28/23 21:02 04/28/23 21:50 Temperature 98.6 F Pulse Rate 91 H Respiratory Rate 17 Blood Pressure 137/56 L Pulse Oximetry 93 93 Oxygen Delivery Method Room Air Room Air Oxygen Flow Rate 0 0 Oxygen Delivery Method Room Air Oxygen Flow Rate 0 Narrative Exam Narrative: Generally: Lying in bed, NAD External genitalia: Erythematous rash with satellite lesions. Objective Labs 04/27/23 05:16 04/27/23 16:30 PFSH Surgical History Status post dilation and curettage (05/07/13) Status post hemorrhoidectomy Status post tonsillectomy and adenoidectomy Social History household members: none Tobacco & Substance Use Smoking Status: Never smoker alcohol intake: current Assessment & Plan Assessment and plan (1) Vulvovaginitis due to yeast: Status: Acute Assessment & Plan narrative: Assessment: 77 year old with yeast of the vulva Sarcoma metastatic to the bone Plan: Continue Nystatin cream to vulva Use Triamcinolone on vulva as well twice a day Will do Affirm swab in the morning, will add Diflucan if positive Time Spent With Patient Time with patient: less than 30 minutes
[2023-04-29 01:07] VITALS: BP 121/43; PULSE 82; RESP 16; TEMP 36.1; O2SAT 92
[2023-04-29] MEDS: hydrOXYzine pamoate 25 MG CAPSULE 50 MG PO ×5 (03:31→22:05)
[2023-04-29] MEDS: SODIUM CHLORIDE 0.9% 1,000 ML 100 ML IV ×3 (03:39→23:36)
[2023-04-29 09:00] VITALS: BP 126/55; PULSE 85; RESP 16; TEMP 36.2; O2SAT 95
--- NOTE | 2023-04-29 09:50 | ST.IPDYTX ---
Visit Care Team Role Provider Type Argenis Walter MD Primary Care Provider Non-Staff Specialty: Internal Medicine Address: [address] [place] [address], [id number] Email: Tricia Gregory MD Other Providers Physician Specialty: General Surgery Address: [address] [place] [address], [id number] Email: Tiera Cortez MD Other Providers Physician Specialty: Gynecology MANAGER BUSINESS PROCESS Obstetrics Address: [address] [place] [address], [phone] Email: [email or web address] Tanika Teague DO Emergency Provider Physician Specialty: Emergency Medicine Address: [address] [place] [address], [phone] Email: [email or web address] Andrew Read MD Admit Provider Physician Attending Provider Specialty: Internal Medicine Address: [address] [place] [address], [phone] Fax: Email: [email or web address] RETARDER OPERATOR Dysphagia Treatment RETARDER OPERATOR Dysphagia Treatment Start: 04/29/23 09:22 Freq: Status: Active Protocol: Document 04/29/23 09:24 MA (Rec: 04/29/23 09:49 MA [id number]) Dysphagia Treatment Session Time Visit Start Time 08:35 Visit Stop Time 09:15 Total Visit Minutes 40 Visit Information Visit Number 2 Setting Assessment Location Acute Care Visit Type Note Type Treatment Note Next Note Type Next Note Type Treatment Note Patient Information Identification Type Name Subjective Observations Pt seen for 1:1 dysphagia treament. Pt asleep laying in bed, however easily awoken with verbal cue. Pt compliant and agreeable to PO trials. Pt positioned upright in bed for PO trials. Pt reported MD discussed potential feeding tube option and that she was scanned yesterday to determine if she is appropriate for placement of feeding tube. ST communicated with Dr. Capone who stated TBD by surgeon if feeding tube will be placed. Pt reports she would like to proceed with feeding tube d/t swallowing difficulties, poor appetite, inability to keep most solids/ liquids down and to not worry so much about eating/drinking . Pt reports she consumed a few spoonfuls of spoon yesterday, as well as some V8. Treatment Liquids Trialed Thin (IDDSI 0) Solids Trialed Minced & Moist (IDDSI 5),Soft & Bite-sized (IDDSI 6),Easy to Chew (IDDSI 7) Administration Type Tea Spoon,Straw Oral Strategies Upright at 90 degrees Pharyngeal Strategies Sitting Upright (90 deg), Double Swallow,Alternate Liquids/Solids Treatment Activities ST assessed swallow function with therapeutic PO trials of soft solids and minced and moist solids in order to determine safest and most efficient least restrictive diet and in order to determine if patient meeting primary nutrition/hydration needs. Pt consumed about 2oz of ice tea, 1 oz of V8 juice, 3 bites of oatmeal, 1 bite of a diced pear, and 3 bites of a turkey sandwich. For thin liquids via straw Pt demonstrated small single sips, good oral acceptance and containment, suspected loss of bolus resulting in premature spillage, suspected delay in swallow, 1x cough reflex post swallow of V8. For oatmeal, Pt demonstrated small bites, prolonged bolus manipulation, extended ap transport, piecemeal deglutition, suspected delay in swallow, no overt s/s of aspiration. No regurgitation during session. Pt reported slight increase in nausea during session and benefitted from breaks. For pear and sandwich Pt demonstrated adequate bite size and rate, prolonged mastication however adequate bolus formation and control, extended ap transport, suspected delay in swallow, Pt reporting globus sensation at level of thyroid notch. ST cued Pt to utilize double swallow and to alternate liquids/solids to assist with clearance. Liquid wash and double swallow successful with pharyngeal clearance. Pt reports sensation of food wanting to come back up at the pharyngeal phase of the swallow. Pt reported wanted to come back up and it's a fight to keep it down. ST educated Pt on safe swallowing strategies such as alternating liquids/solids, moistening solids and taking small bites/sips. Pt denies hx of throat dialation. ST also educated Pt on importance of consuming enough PO intake in order to maintain primary nutrition/hydration. Pt verbalized understanding. The IDDSI Framework Protocol: IDDSI.1 Assessment Patient Response to Treatment Good Rehab Potential Good Assessment of Improvement Pt with increased PO intake this date, however continues to report increased nausea as trials progress and reporting difficulties swallowing solids at level of the thyroid notch . Recommendations Recommendations Continue Current Diet Liquids Order Thin (IDDSI 0) Diet Order Soft & Bite-sized (IDDSI 6) Medication Recommendations As Tolerated Aspiration Precautions Recommended Precautions Upright at 90 Degrees, Alternate Liquids/Solids, Frequent Rest Periods,Small Bites/Sips,Double Swallow Treatment Plan Appropriate for Continued Therapy Yes Therapy Recommendations ST recommends continuation of POC at this time. Additionally , ST communicated with Dr. Capone regarding possible MBS order. However, upon discussion with Pt she states she had a MBS done 2 years ago and was not able to keep barium down resulting in regurgitation during study. Also, due to patient with limited PO trials this date patient does not appear to be appropriate for MBS at this time.
[2023-04-29] MEDS: NYSTATIN CREAM 30 GM 1 APPLIC TOP ×2 (10:42→20:55)
[2023-04-29] MEDS: TRIAMCINOLONE 0.1% 1 EACH TOP ×2 (10:44→20:56)
[2023-04-29] MEDS: FAMOTIDINE 20 MG TABLET 10 MG PO (10:45)
--- NOTE | 2023-04-29 11:54 | PT.IPTN ---
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) Dehydration (04/27/23) Weakness (04/27/23) Surgery Performed Operation Date: 04/30/23 13:30 <No data on this case meets the specified criteria> Physical Therapy Treatment Note M2 PT-IP Current Condition Start: 04/26/23 13:24 Freq: NEEDED Status: Active Protocol: Document 04/26/23 10:45 AB (Rec: 04/26/23 13:42 AB [id number]) Physical Therapy Current Condition Current Condition Evaluation Date 04/26/23 Treatment Diagnosis UTI; difficulty in walking Onset Date 04/25/23 M3 PT-IP Subjective Start: 04/26/23 13:24 Freq: NEEDED Status: Active Protocol: Document 04/29/23 12:33 TS (Rec: 04/29/23 12:49 TS [id number]) Subjective Physical Therapy Visit Type Type Treatment Note Visit Start Time 11:54 Visit Stop Time 12:30 Total Visit Minutes 36 Number of ZYGLO TECHNICIAN Visits 1 Physical Therapy Visit Comments Patient Comments Pt found resting in bed, reports having difficulty getting her legs out of bed but once up she is moving fine . She would like to improve her balance, discussed possible outpatient PT, pt agreeable to PT. Patient Goals Hopeful to discharge home. M4 PT-IP Mobility and Gait Start: 04/26/23 13:24 Freq: NEEDED Status: Active Protocol: Document 04/29/23 12:33 TS (Rec: 04/29/23 12:49 TS [id number]) PT-Bed Mobility Assessment Supine to Sit Supine to Sit Minimal Assistance,1 Person Assistance Sit to Supine Sit to Supine Minimal Assistance,1 Person Assistance Scooting Scooting to Edge of Bed Contact Guard Assistance PT-Transfer Assessment Sit to and From Stand Sit to and from Stand Standby Assistance,1 Person Assistance Equipment Transfer Assistive Device Gait Belt,Front Wheeled Walker Orthotic/Prosthetic Devices or Brace: No Comments Mobility Comments Pt performed SLR, Hip ABD, Bridge x5 prior to mobility. Supine to sit Esther for uprighting trunk with handheld assist. She slowly scooted to EOB with CGA and BUE support pushing from bed. Sit to stand with FWW SBA, pt had some slight retroleaning and R knee buckling, required assist to don pants. She ambulated ~250 SBA with FWW, had no buckling or LOB. Sit to supine into bed Esther for B LEs, pt laterally scooted SBA for repositioning. Pt was left in bed with all needs met, RN notified of pt having discomfort in low back. Gait Assessment Gait Gait Assistance Required: Standby Assistance Distance (Feet) 250 Able to Maintain Weight Bearing Status Yes During Gait Assistive Devices Assistive Device Gait Belt,Front Wheeled Walker Orthotic/Prosthetic Devices or Brace: No Gait Deviations General Gait Pattern Decreased Stride Length, Decreased Feet Clearance Factors Limiting Gait Function Factors Limiting Gait Function Decreased Activity Tolerance, Decreased Strength,Poor Balance Comments Gait Comments See mobility comments. PT-Balance Assessment Sitting Balance and Reactions Static Sitting Balance Ability Good Dynamic Sitting Balance Ability Good Standing Balance and Reactions Static Standing Balance Ability Good Dynamic Standing Balance Ability Good Device Used FWW M5 PT-IP Objective Assessments Start: 04/26/23 13:24 Freq: NEEDED Status: Active Protocol: Document 04/26/23 10:45 AB (Rec: 04/26/23 13:42 AB [id number]) Orientation Orientation/Cognition Level of Alertness Alert Orientation Name,Place,Situation Language Function Ability Hard of Hearing Safety Awareness Decreased Safety Awareness Memory Description No Deficits Noted Gross Range of Motion Lower Extremity ROM Assessment Within Functional Limits Strength Lower Extremity Strength Assessment Bilaterally Impaired Hip 3+/5 Knee 3+/5 Muscle Tone Muscle Tone WNL Yes M6 PT-IP Treatment Start: 04/26/23 13:24 Freq: NEEDED Status: Active Protocol: Document 04/29/23 12:33 TS (Rec: 04/29/23 12:49 TS [id number]) Physical Therapy Treatment Education Education Provided Safety M7 PT-IP Assessment and Plan Start: 04/26/23 13:24 Freq: NEEDED Status: Active Protocol: Document 04/29/23 12:33 TS (Rec: 04/29/23 12:49 TS [id number]) PT Summary Assessment and Plan Potential Rehabilitation Potential Good Summary Impairments Pain,ROM,Strength,Balance, Coordination,Sensation,Tone, Cognition,Bed Mobility, Transfers,Gait,Activity Tolerance Progress Towards Goals Progressing Toward Goals Assessment Summary Howard continues to make progress with her mobility. She requires Esther for supine to sit/sit to supine for uprighting her and lifting LEs into bed. She is SBA for sit to stand, had some R knee buckling initially in standing , improved with gait. She continues to ambulate ~250' SBA with FWW, had no buckling or LOB but reports feeling unsteady. PT continues to recommend home with assist and HHPT. Pt would benefit from outpatient PT to improve balance and strength when appropriate. Goals Bed Mobility Goal Minimal Assistance Transfer Goal Minimal Assistance,Front Wheeled Walker Gait Goal Standby Assistance,Front Wheel Walker Gait Distance 100 Other Goals improve bed mobility, transfers , ambulation using LRAQ/without AD 250 ft mod I Days to Meet Goals 10 Frequency of Treatment Frequency Of Treatment Once a Day Treatment Plan Physical Therapy Treatment Plan Bed Mobility Training,Transfer Training,Gait Training, Therapeutic Exercise,Balance Retraining,Discharge Planning, Hot or Cold Pack,Neuromuscular Re-ed,Coordination Retraining Other Recommendations and Next Treatment Consider TUG testing (and dual Focus task TUG) as baseline for HH PT to follow up on. Precautions Other Precautions falls Recommendations To Nursing Amount of Assist Needed 1 Person Assist Discharge Recommendations PT Discharge Recommendations Home with Assistance,Home with / Assist Available,Home Health Equipment Needed for Home Before FWW Discharge Transportation Needs at Discharge Private Vehicle
--- NOTE | 2023-04-29 12:23 | P.CONS_ITS ---
History of Present Illness Consult details Date Patient Seen: 04/29/23 Time Patient Seen: 12:23 Chief complaint: Weakness Reason for consult: PEG tube placement Requesting provider: Sarthak Capone Narrative: Under treatment for metastatic sarcoma, having increasing difficulty with swallowing and maintaining weight. Meds Home Medications and Allergies Home Medications Medication Instructions Recorded Confirmed Type difluprednate 0.05 % eye drops 1 drp EYE-BOTH DAILY 04/17/23 04/25/23 History famotidine 20 mg tablet 10 mg PO DAILY 04/17/23 04/25/23 History hydroxyzine HCl 25 mg tablet 25 mg PO QID #40 tabs 04/17/23 04/25/23 Rx hydroxyzine pamoate 25 mg capsule 25 mg PO BID PRN itch 04/17/23 04/25/23 History pravastatin 20 mg tablet 20 mg PO DAILY 04/17/23 04/25/23 History prochlorperazine maleate 10 mg 10 mg PO Q6H PRN nausea/vomiting 04/17/23 04/25/23 History tablet amoxicillin 875 mg-potassium 1 tab PO Q12H #20 tabs 04/23/23 04/25/23 Rx clavulanate 125 mg tablet Allergies Allergy/AdvReac Type Severity Reaction Status Date / Time codeine AdvReac Unknown rash/nausea Verified 04/17/23 16:49 Review of Systems Review of Systems ROS: Yes All systems reviewed with the patient and are negative except as otherwise documented Exam Vital Signs (past 8 hours): - 04/29/23 09:00 Temperature 97.1 F L Pulse Rate 85 Respiratory Rate 16 Blood Pressure 126/55 L Pulse Oximetry 95 Oxygen Delivery Method Room Air Oxygen Flow Rate 0 Narrative Exam Narrative: Abdominal CT reviewed and there is no contraindication seen for PEG Const General: cooperative Nutritional Appearance: thin Orientation: alert, awake and oriented x3 HENMT Head: normal to inspection and normocephalic Eyes Sclera: sclerae normal Neck Neck: trachea midline Resp Effort & Inspection: normal respiratory effort and able to speak in complete sentences Cardio Rate: regular rate Rhythm: regular rhythm GI Inspection: normal to inspection Palpation: soft, No guarding and No tender Skin General: No jaundice and pallor Neuro General: patient alert, patient awake and patient oriented x3 Cranial Nerves: tongue midline and No hearing normal Cognition: normal cognition Extrem General: full ROM Psych Appearance: grossly normal Mental Status: mental status grossly normal Judgment: judgment good Objective Labs 04/27/23 05:16 04/27/23 16:30 [facility] Surgical History Status post dilation and curettage (05/07/13) Status post hemorrhoidectomy Status post tonsillectomy and adenoidectomy Social History household members: none Tobacco & Substance Use Smoking Status: Never smoker alcohol intake: current Assessment & Plan Assessment & Plan narrative: Progressive dysphagia Metastatic sarcoma Plan: PEG Time Spent With Patient Time with patient: less than 30 minutes
--- NOTE | 2023-04-29 13:22 | CM.DPC ---
DCP Cont: Per Surgeon Consult, pt to be NPO later this evening towards plan of PEG placement in the OR tomorrow 04/30 for adequate nutrition. PT/OT still working with pt and ST determined that pt likely would not tolerate MBS at this time but will continue to work with her on her swallow during admission. SW made initial referral to [facility] to review her clinicals and insurance as pt will need artificial nutrition management after discharge and called and left [facility] a msg requesting review. Will still need Restaurant Crew Person Consult on formula recommendations for PEG tube feeding. Plan: SW to follow closely tomorrow for PEG tube placement and then the initiation of formula to confirm pt can tolerate and coordination with Dian LEON and [facility] for home plan. If SNF needed, Eli Duff reviewing. CHARLY Carroll
--- NOTE | 2023-04-29 13:51 | P.PN_ITS ---
Subjective Subjective Date Patient Seen: 04/29/23 Time Patient Seen: 08:00 Interval history: She has no new concerns today. Exam Vital Signs (past 8 hours): - 04/29/23 09:00 Temperature 97.1 F L Pulse Rate 85 Respiratory Rate 16 Blood Pressure 126/55 L Pulse Oximetry 95 Oxygen Delivery Method Room Air Oxygen Flow Rate 0 Narrative Exam Narrative: Gen: alert, no acute distress Skin: diffucse maculopapular rash on truck and extremities PULM: clear bilaterally ABD: soft, nontender Ext: no edema Neuro: nl speech and affect Objective Labs 04/27/23 05:16 04/27/23 16:30 PFSH Surgical History Status post dilation and curettage (05/07/13) Status post hemorrhoidectomy Status post tonsillectomy and adenoidectomy Social History household members: none Smoking Status: Never smoker alcohol intake: current Assessment & Plan Assessment & Plan narrative: 1. Dysphagia -unclear etiology, preceded new chemo started a month ago -ST swallow eval noted -CT noted no evidence of carcinomatosis, noted known metastatic cancer -continue IV fluid -surgery consulted, plan for PEG tube on 04/30 2. Weakness -secondary to dec po intake, no evidence of urine/lung infection -may need PEG tube -PT recommends SNF 3. Chronic urticaria -sev pruritis, not responsive to loratidine or benadryl, slightly responsive to hydroxyzine and TAC 1% crm -cont hydroxyzine 50mg q4h prn and TAC 1% crm prn 4. 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 -CXR findings in LLL related to mets 5. Elevated BNP w/o clinical evidence of CHF -ECHO: EF 70-75%, sm pericardial effusion w/o tamponade 6. Vaginal mucositis -appreciate Dr. Cortez consult, rec steroids and nystatin externally -plan for swab to evaluate for vaginal infection Quality VTE Deep Vein Thrombosis/Pulmonary Embolism Present on Admission: No
--- NOTE | 2023-04-29 14:00 | OT.IP.TRT ---
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) Dehydration (04/27/23) Weakness (04/27/23) Surgery Performed Operation Date: 04/30/23 13:30 <No data on this case meets the specified criteria> Occupational Therapy Treatment Note M2 OT-IP Current Condition Start: 04/28/23 13:06 Freq: Status: Active Protocol: Document 04/28/23 13:06 CGR (Rec: 04/28/23 13:19 CGR [id number]) Occupational Therapy Current Condition Current Condition Evaluation Date 04/28/23 Treatment Diagnosis weakness, chemo for renal sarcoma, rash to groin Diagnosis Onset Date 04/25/23 M3 OT- IP Subjective and Pain Start: 04/28/23 13:06 Freq: Status: Active Protocol: Document 04/29/23 14:13 CCC (Rec: 04/29/23 14:23 CCC [id number]) OT- Subjective Occupational Therapy Visit Type Type Treatment Note Visit Start Time 14:00 Visit Stop Time 14:09 Total Visit Minutes 9 Occupational Therapy Visit Comments Patient Comments Pt states very tired and wanting to rest but open to talking to OT regarding OT needs. In addition pt states has difficulty to open items at home and to pick pulling machine operator items. Patient/Caregiver Goals To go home. M4 OT- IP ADL's Start: 04/28/23 13:06 Freq: Status: Active Protocol: Document 04/28/23 13:06 CGR (Rec: 04/28/23 13:19 CGR [id number]) OT [id number] Comments OT Self-Feeding Comments not meal time OT ADL-Grooming General Evaluation Grooming Ability Independent Areas Needing Assistance Face Washing Comments OT Grooming Comments standing at sink OT ADL-Oral Care General Eval Oral Care Ability Independent Areas of Assistance Brushing Teeth Comments Oral Care Comments standing at sink OT ADL-Dressing General Eval Lower Body Dressing Ability Maximum Assistance Areas Needing Assistance Underpants/Brief,Socks Comments OT Dressing Comments performed for patient after shower OT ADL-Toileting General Evaluation Toileting Ability Total Assistance Comments OT Toileting Comments pt with andriy OT ADL-Bathing Bathing Type Bathing Type Shower Comments OT Bathing Comments Unsure of assist for full shower as OT entered at end of session. Drying and dressing grossly mod a. M5 OT- IP IADL's Start: 04/28/23 13:06 Freq: Status: Active Protocol: Document 04/28/23 13:06 CGR (Rec: 04/28/23 13:19 CGR [id number]) OT-Instrumental Activities of Daily Living Deficits IADL Deficits Identified No Deficits Home Safety Awareness Awareness of Need for Assistance at Home Good Awareness Ability to Problem Solve Emergency Able to Problem Solve Situations Medication Management Medication Management No Deficits Identified Money Management Money Management No Deficits Identified Meal Preparation Meal Preparation Caregiver Provides Assist Broom Stitcher Broom Stitcher Caregiver Provides Assist Driving Driving Comments Pt understand that driving is not safe for her at this time. M6 OT- IP Functional Cognition Start: 04/28/23 13:06 Freq: Status: Active Protocol: Document 04/28/23 13:06 CGR (Rec: 04/28/23 13:19 CGR [id number]) Cognitive Factors Limiting Selfcare Function Cognitive Ability Level of Alertness Alert Patient Orientation Name,Age,Birthday,Month,Date, Year,Day of Week,Place, Situation Attention Span Ability Capable of Focused Attention, Capable of Sustained Attention Ability to Follow Commands Able to Follow Multi-Step Commands OT- Vision and Hearing OT- Hearing Assessment OT- Hearing Assessment Hearing Impaired,Use of Hearing Aids OT- Vision Assessment Visual Acuity Glasses All The Time Visual Attentiveness WFL Occular Pursuits WFL Visual Convergence WFL Vision Assessment Comments pt wears bifocals M7 OT- IP Mobility and Balance Start: 04/28/23 13:06 Freq: Status: Active Protocol: Document 04/28/23 13:06 CGR (Rec: 04/28/23 13:19 CGR [id number]) OT-Transfer Assessment Sit to and From Stand Sit to and from Stand Standby Assistance Transfers Transfer Ability Independent,Standby Assistance Technique Transfer Destination Chair,Shower Stall Transfer Technique Stand Step Pivot Devices Transfer Assistive Devices Gait Belt,Front Wheeled Walker Comments Mobility Comments Pt has pain with initial sitting and standing d/t groin rash but once up, pt needs no assist. OT- Balance Assessment Sitting Balance and Reactions Static Sitting Balance Ability Normal Dynamic Sitting Balance Ability Normal M8 OT- IP Objective Assessments Start: 04/28/23 13:06 Freq: Status: Active Protocol: Document 04/29/23 14:13 CCC (Rec: 04/29/23 14:23 CCC [id number]) OT- Coordination Assessment Comments Coordination Comments Went over techniques of how to pick pulling machine operator items of either finger to thumb or thumb to fingers and to practice tomorrow with pt.Spoke of getting jar infantry weapons officer to assist to open containers or just ask family for assist. M9 OT- IP Assessment and Plan Start: 04/28/23 13:06 Freq: Status: Active Protocol: Document 04/29/23 14:13 [facility] (Rec: 04/29/23 14:23 [facility] [id number]) OT Summary Assessment and Plan Potential Rehabilitation Potential Excellent Analytic Complexity at Evaluation Low Summary OT Impairments Strength,Functional Mobility, Dressing,Toileting,Bathing, Toilet Transfers,Shower Transfers,Activity Tolerance Progress Towards Goals Slow Progress due to Medical Issues,Slow Progress due to Activity Tolerance Assessment Summary Pt now looking to get a PEG tube placed tomorrow. Pt'a daughter in the room and state upon discharge someone to stay with the pt at all times to assist with her care. Pt will also benefit from home health. Goals Grooming Goal Independent Dressing Goal Independent Toileting Goal Independent Bathing Goal Independent Toilet Transfer Goal Independent Shower Transfer Goal Independent Days to Meet Goals 5 Frequency of Treatment Frequency Of Treatment Once a Day Treatment Plan OT Treatment Plan ADL Training,Functional Mobility,Patient/Family Education,Discharge Planning Other Treatment Recommendations and Next LB dressing/ FMS items Treatment Focus Discharge Recommendations OT Discharge Recommendations Home with 27/01 Assist Available,Home Health Home Equipment Needs LB dressing equipment Transportation Needs at Discharge Private Vehicle
[2023-04-29 14:48] LABS: Alanine Aminotransferase 25 IU/L (<35); Albumin 2.3 g/dL (3.5-5.0); Alkaline Phosphatase 79 U/L (38-126); Aspartate Aminotransferase 45 IU/L (14-36); Bilirubin Total 0.2 mg/dL (0.2-1.3); Calcium 8.2 mg/dL (8.4-10.2); Carbon Dioxide 17 mmol/L (22-32); Chloride 111 mmol/L (98-107); Estimated Glomerular Filt Rate > 60 mL/min (>60); Globulin 2.4 g/dL (1.7-4.1); Glucose 105 mg/dL (80-110); HEMOLYSIS < 15 (0-50); Potassium 3.3 mmol/L (3.4-5.1); Sodium 135 mmol/L (137-145); Total Protein 4.7 g/dL (6.3-8.2)
[2023-04-29 15:06] LABS: BUN Creatinine Ratio 2.7 (6-22); Blood Urea Nitrogen < 2 mg/dL (7-17)
--- NOTE | 2023-04-29 15:52 | DIET.CONS ---
Dietary Consultation Note Admission Date: 04/27/2023 12:14 Assessment: 77y F with new onset dysphagia being treated for metastatic sarcoma referred to nutrition for PEG feeding recommendations as pt having PEG tube placed 04/30/23. Pt weight stable at low risk of refeeding syndrome. Plan to start pump assisted continuous feeding through PEG once placed with pt transitioning to bolus feeds as tolerated in her home setting. Ht: 152.4 cm Wt: 59.5 kg BMI: 25.6 UBW: 60kg Last BM: 04/27/23 (04/27/23 10:14) MNA: 14 Luis Angel Score: 19 Diet: 04/26/23 Breakfast General (Regular) Diet Diet Modifications: 04/28/23 Lunch Dysphagia Diet Diet Modifications: Add V8 juice, soups, ice tea, fruit all meals Food Texture: Level 6-Soft & Bite-sized Liquid Consistency: Level 0 - Thin 04/30/23 00:01 NPO Diet Diet Modifications: NPO Type: NPO except for Meds Nutrition Percent Meal Consumed 0% 04/28/23 21:00 Percent Meal Consumed 0% 04/28/23 10:23 Percent Meal Consumed 50% 04/27/23 18:36 Percent Meal Consumed 25% 04/27/23 18:00 Percent Meal Consumed 50% 04/27/23 17:00 Labs: RBC 4.03 X10^6/uL (4.0-5.2) 04/27/23 05:16 Hgb 11.0 g/dL (12.0-16.0) L 04/27/23 05:16 Hct 32.5 % (36-46) L 04/27/23 05:16 Creatinine 0.74 mg/dL (0.52-1.04) 04/29/23 14:14 Lactate 1.0 mmol/L (0.7-2.1) 04/25/23 19:50 NT-Pro-B Natriuret Pep 3410 pg/mL (<450) H 04/25/23 17:00 Nutrition Diagnosis: Inability to meet nutrition needs r/t dysphagia aeb pt unable to sit for MBSS, pt desires placement of PEG tube to avoid losing weight while going through tx for metastatic cancer. Interventions: 1. Recc initiation of continuous enteral feeding via PEG tube. Formula: Jevity 1.2 Starting rate: 20mL/h Goal rate: 50mL/h Titration schedule: increase by 10mL q6h as tolerated Free Water Flushes: 100mL q4h 2. HOB elevated >30 degrees at all time. EER: Goal rate feeding and flushes provide: 1440kcals (29kcal/kg), 67g PRO (1.4g/kg), 203g CHO, 968mL free water from formula, 600mL flushes providing 1568mL total fluids (32mL/kg). Monitoring/Evaluations: TF tolerance. Pt may transition to bolus feeding once tolerating goal continuous rate. Electronically Signed by: Nurys Crump 04/29/23 15:52 Clinical Dietitian [address] [address]
[2023-04-29 16:46] VITALS: BP 151/60; PULSE 90; RESP 16; TEMP 36.5; O2SAT 96
[2023-04-29] MEDS: POTASSIUM CHLORIDE 20 MEQ TAB 40 MEQ PO (18:09)
[2023-04-29] MEDS: POTASSIUM CHLORIDE IN WATER 10 MEQ/100 ML PIGGYBACK 100 MEQ IV ×3 (20:54→23:07)
[2023-04-29] MEDS: PRAVASTATIN 20 MG TABLET PO (20:55)
[2023-04-29 21:00] VITALS: O2SAT 97
[2023-04-29] MEDS: ONDANSETRON 4 MG/2 ML INJ IV (22:17)
[2023-04-30] VITALS (15 sets, daily range): BP systolic 152–180; BP diastolic 61–82; PULSE 75–91; RESP 14–92; TEMP 36–37.5; O2SAT 92–98; BMI 25.6
[2023-04-30] MEDS: POTASSIUM CHLORIDE IN WATER 10 MEQ/100 ML PIGGYBACK 100 MEQ IV (00:18)
[2023-04-30 06:32] LABS: Alanine Aminotransferase 22 IU/L (<35); Albumin 2.1 g/dL (3.5-5.0); Albumin Globulin Ratio 0.9 (1.0-2.8); Alkaline Phosphatase 68 U/L (38-126); Aspartate Aminotransferase 32 IU/L (14-36); BUN Creatinine Ratio 2.8 (6-22); Bilirubin Total 0.3 mg/dL (0.2-1.3); Blood Urea Nitrogen < 2 mg/dL (7-17); Calcium 7.9 mg/dL (8.4-10.2); Carbon Dioxide 17 mmol/L (22-32); Chloride 110 mmol/L (98-107); Estimated Glomerular Filt Rate > 60 mL/min (>60); Globulin 2.4 g/dL (1.7-4.1); Glucose 84 mg/dL (80-110); HEMOLYSIS < 15 (0-50); Sodium 135 mmol/L (137-145); Total Protein 4.5 g/dL (6.3-8.2)
[2023-04-30] MEDS: hydrOXYzine pamoate 25 MG CAPSULE 50 MG PO ×4 (06:44→22:02)
[2023-04-30] MEDS: NYSTATIN CREAM 30 GM 1 APPLIC TOP ×2 (08:50→21:59)
[2023-04-30] MEDS: TRIAMCINOLONE 0.1% 1 EACH TOP ×2 (08:50→21:59)
[2023-04-30] MEDS: SODIUM CHLORIDE 0.9% 1,000 ML 100 ML IV ×2 (08:51→12:33)
--- NOTE | 2023-04-30 09:10 | PT.IPTN ---
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) Dehydration (04/27/23) Weakness (04/27/23) Surgery Performed Operation Date: 04/30/23 12:00 <No data on this case meets the specified criteria> Physical Therapy Treatment Note M2 PT-IP Current Condition Start: 04/26/23 13:24 Freq: NEEDED Status: Active Protocol: Document 04/26/23 10:45 AB (Rec: 04/26/23 13:42 AB [id number]) Physical Therapy Current Condition Current Condition Evaluation Date 04/26/23 Treatment Diagnosis UTI; difficulty in walking Onset Date 04/25/23 M3 PT-IP Subjective Start: 04/26/23 13:24 Freq: NEEDED Status: Active Protocol: Document 04/30/23 10:09 TS (Rec: 04/30/23 10:23 TS [id number]) Subjective Physical Therapy Visit Type Type Treatment Note Visit Start Time 09:10 Visit Stop Time 09:30 Total Visit Minutes 20 Number of RETIREMENT MANAGER Visits 2 Physical Therapy Visit Comments Patient Comments Pt found resting in bed, reports peg tube will be placed at 13:30 this afternoon , is agreeable to PT. M4 PT-IP Mobility and Gait Start: 04/26/23 13:24 Freq: NEEDED Status: Active Protocol: Document 04/30/23 10:09 TS (Rec: 04/30/23 10:23 TS [id number]) PT-Bed Mobility Assessment Supine to Sit Supine to Sit Minimal Assistance,1 Person Assistance Scooting Scooting to Edge of Bed Contact Guard Assistance PT-Transfer Assessment Sit to and From Stand Sit to and from Stand Standby Assistance,1 Person Assistance Equipment Transfer Assistive Device Gait Belt,Front Wheeled Walker Orthotic/Prosthetic Devices or Brace: No Comments Mobility Comments Supine to sit HOB elevated 20D Esther with handheld assist for uprighting trunk. She scooted to EOB CGA with BUE support, has some difficulty moving L hip forward. She sat EOB with BUE support and a slight posterior lean. Sit to stand SBA with FWW, pt has good standing balance with no knee buckling. She ambulated ~125' this session SBA with FWW, reported fatigue after ~75', requesting back to room. Back in room pt reports needing to use commode, OUTSEWER called in room to assist. Pt was left with OUTSEWER in room tending to needs. Gait Assessment Gait Gait Assistance Required: Standby Assistance Distance (Feet) 125 Able to Maintain Weight Bearing Status Yes During Gait Assistive Devices Assistive Device Gait Belt,Front Wheeled Walker Orthotic/Prosthetic Devices or Brace: No Gait Deviations General Gait Pattern Decreased Stride Length, Decreased Feet Clearance Factors Limiting Gait Function Factors Limiting Gait Function Decreased Activity Tolerance, Decreased Strength,Poor Balance Comments Gait Comments See mobility comments. PT-Balance Assessment Sitting Balance and Reactions Static Sitting Balance Ability Good Dynamic Sitting Balance Ability Good Standing Balance and Reactions Static Standing Balance Ability Good Dynamic Standing Balance Ability Good Device Used FWW M5 PT-IP Objective Assessments Start: 04/26/23 13:24 Freq: NEEDED Status: Active Protocol: Document 04/26/23 10:45 AB (Rec: 04/26/23 13:42 AB [id number]) Orientation Orientation/Cognition Level of Alertness Alert Orientation Name,Place,Situation Language Function Ability Hard of Hearing Safety Awareness Decreased Safety Awareness Memory Description No Deficits Noted Gross Range of Motion Lower Extremity ROM Assessment Within Functional Limits Strength Lower Extremity Strength Assessment Bilaterally Impaired Hip 3+/5 Knee 3+/5 Muscle Tone Muscle Tone WNL Yes M6 PT-IP Treatment Start: 04/26/23 13:24 Freq: NEEDED Status: Active Protocol: Document 04/30/23 10:09 TS (Rec: 04/30/23 10:23 TS [id number]) Physical Therapy Treatment Education Education Provided Safety M7 PT-IP Assessment and Plan Start: 04/26/23 13:24 Freq: NEEDED Status: Active Protocol: Document 04/30/23 10:09 TS (Rec: 04/30/23 10:23 TS [id number]) PT Summary Assessment and Plan Potential Rehabilitation Potential Good Summary Impairments Pain,ROM,Strength,Balance, Coordination,Sensation,Tone, Cognition,Bed Mobility, Transfers,Gait,Activity Tolerance Progress Towards Goals Slow Progress due to Activity Tolerance Assessment Summary Howard is making slow progress this session due to activity tolerance. She continues to need Esther with handheld assist fopr uprighting her trunk into sitting position. Sitting EOB she has a slight posterior lean. She continues to be SBA for sit to stand with FWW, she did not have any buckling in R knee this session. She ambulated ~125' SBA this session, she reported increased fatigue with gait. Pt has most difficulty with bed mobility. In the past she has slept in her recliner and may do so when she is d/c home . PT continues to recommend home with assist and HHPT. Goals Bed Mobility Goal Minimal Assistance Transfer Goal Minimal Assistance,Front Wheeled Walker Gait Goal Standby Assistance,Front Wheel Walker Gait Distance 100 Other Goals improve bed mobility, transfers , ambulation using LRAQ/without AD 250 ft mod I Days to Meet Goals 10 Frequency of Treatment Frequency Of Treatment Once a Day Treatment Plan Physical Therapy Treatment Plan Bed Mobility Training,Transfer Training,Gait Training, Therapeutic Exercise,Balance Retraining,Discharge Planning, Hot or Cold Pack,Neuromuscular Re-ed,Coordination Retraining Other Recommendations and Next Treatment Consider TUG testing (and dual Focus task TUG) as baseline for HH PT to follow up on. Precautions Other Precautions falls Recommendations To Nursing Amount of Assist Needed 1 Person Assist Discharge Recommendations PT Discharge Recommendations Home with Assistance,Home with 24/7 Assist Available,Home Health Equipment Needed for Home Before FWW Discharge Transportation Needs at Discharge Private Vehicle
[2023-04-30] MEDS: LACTATED RINGERS 1,000 ML 42 ML IV (10:11)
--- NOTE | 2023-04-30 10:13 | PM.PREOP ---
Pre-operative Note Interval Note History & Physical reviewed/Exam performed by Physician: Yes Changes to H&P: No
--- NOTE | 2023-04-30 10:54 | OT.IPNOTE ---
Pt not in the room at this time as getting PEG placed, to check on pt later for OT as appropriate.
--- NOTE | 2023-04-30 11:19 | P.OP.EGD_ITS ---
Operative Date/Time/Diagnoses Date of procedure: 04/30/23 Time of procedure: 11:19 Pre-op diagnosis: Dysphagia Post-op diagnosis: same Procedure & Clinicians Study performed: Peg tube placement Same procedure as scheduled: Yes Indications: Dysphagia Surgeon: Tricia Gregory Procedure Notes Procedure in detail: Preop diagnosis: Dysphagia Postop diagnosis: Same Operative procedure: PEG with anesthesia Surgeon: Dolly Gregory MD Findings: Small ulcerations pre-pyloric, normal-appearing esophagus no ulcers. Procedure: Patient placed in a supine position. Prepped and draped in sterile fashion. Scope was inserted into the esophagus and advanced into the stomach. With insufflation I was able to identify a portion on her anterior abdominal wall left upper quadrant corresponding to tapping of the stomach internally. Local was injected at the spot a deemed appropriate. Small incision was made with an 11 blade knife. Angiocath was placed into the stomach under visualization. Through the Angiocath we passed our blue wire to be captured by the retrieval wire from the endoscope. Endoscope was removed. PEG was attached to the retrieval wire and pulled through the anterior abdominal wall with ease. Peg tube, 20 Kazakh, was matured with the silicone flange, clamp, and injectable head. Dry dressings were placed. Patient was awakened, extubated, taken to recovery room in stable condition. Needle, instrument, sponge counts were correct. Impression: Dysphagia. Uncomplicated PEG tube placement. Plan: 30 mL flushes q.12 hours. May initiate tube feeds per dietitian in the a.m.. Findings: other findings (Scant gastric erosions pre-pyloric) Specimen(s): none sent Complications: none Post-procedure Follow up: as needed Disposition: PACU
--- NOTE | 2023-04-30 12:26 | SUR.PHASEI ---
Left arm swelling. Patient has notable swelling to left forearm. arm band is tight around her wrist. Patient verbalizes that this was not present prior. +1 edema noted to left arm. Arm is warm and left radial pulse is present. Also of note, patient is very itchy, but is not new according to patient. Removed Notified Radha Edwards CRNA and Dr. Gregory of above findings at 11:45. No new orders at this time. Instructed to report this to floor nurse. Took measurements to left wrist and left forearm and marked site for reference for floor staff. Left wrist 7 3/4 inch and left forearm 10 1/4 inch. Reported all findings to floor nurse, Tiarra GUARDADO.
[2023-04-30] MEDS: ACETAMINOPHEN 325 MG TABLET 650 MG PO (12:59)
--- NOTE | 2023-04-30 12:59 | SLP.IPNOTE ---
Pt not seen by ST this date d/t Pt NPO due to PEG placement this date at 13:30. ST to f/u 05/01/23.
--- NOTE | 2023-04-30 13:06 | DI.US.S_ITS ---
PROCEDURE: US PERIPH VENOUS UP EXTREM LT INDICATIONS: SWELLING TECHNIQUE: Real-time imaging, as well as color and pulse Doppler interrogation, was performed of the left upper extremity deep veins from the inferior neck to the antecubital fossa. COMPARISON: None. FINDINGS: The internal jugular vein, visualized portions of the subclavian vein, axillary, and brachial veins are free of intraluminal thrombus. Where physically possible, the veins are normally compressible. Color and pulse Doppler demonstrate normal intraluminal flow, with expected phasicity and pulsatility. In the superficial veins of the arm, there are internal echoes and noncompressibility reflecting complete occlusion of the cephalic vein above the elbow. IMPRESSION: No evidence of deep venous thrombosis in the left upper extremity. 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 on 04/30/2023 at 13:53
--- NOTE | 2023-04-30 13:56 | OT.IPNOTE ---
Pt just back from surgery and wanting to rest. To check on the pt tomorrow for Ot treatment.
[2023-04-30] MEDS: HYDROCODONE/ACET 5/325 TABLET 1 TAB PO (13:59)
--- NOTE | 2023-04-30 14:09 | CM.DPC ---
DCP Cont: Per MD, pt going to OR today with Surgeon for PEG tube placement and off the floor at 1100. Likely will start formula slowly tomorrow and titrate to confirm pt can tolerate. Market Investigator Nurys placed note for formula recommendations and CC Rosy faxed to [facility] to review. BRIJESH spoke to Benson at [facility] and confirmed pt will have a one time out of pocket cost of $125 and then the rest will be covered by her insurance. Benson just requesting pt's PCP as well as MD to write in their progress note the language needed for insurance to cover the formula needs (Patient requiring?enteral/parenteral?nutrition via?(type of feeding tube)?due to a functional impairment of the gastrointestinal tract secondary to?(reason/diagnosis). Enteral/Parenteral?nutrition will be required for > 90 days and will provide the majority of the patient's nutrition. ?[facility] to manage tube feedings/TPN.) Benson left ms for pt regarding out of pocket cost and also called pt's son. BRIJESH met bedside with pt once she returned to the floor from surgery and she seemed to tolerate the procedure well and she states she has a new PCP now and to call her Dtr for PCP information and she remains agreeable with plan of home with [facility] at discharge. BRIJESH called Dtr Varinder [phone] and she confirms that PCP is Dr. Mcdonough at [facility] in [place] and BRIJESH updated on above and Dtr very appreciative and will be bedside tonight around 1900. BRIJESH updated Benson on PCP information. Plan: BRIJESH to follow for initiating enteral feeding tomorrow to confirm pt can tolerate and MD to write verbage in prog note needed for formula coverage for [facility]. Latosha Goddard, COT[employer]AND[employer] MAKER
--- NOTE | 2023-04-30 15:09 | PM.PN.1 ---
Subjective Subjective Date Patient Seen: 04/30/23 Time Patient Seen: 08:00 Interval history: She is seen after PEG placement. She has no pain. Discussed with surgeon about starting flushes today, tube feeds tomorrow. After surgery she is noted to have left upper extremity swelling. Ultrasound shows cephalic vein occlusion. Exam Vital Signs (past 8 hours): - 04/30/23 08:45 04/30/23 09:19 04/30/23 10:09 Temperature 99.5 F 97.3 F L Pulse Rate 91 H 88 Respiratory Rate 18 16 Blood Pressure 180/82 H 169/78 H Pulse Oximetry 93 95 98 Oxygen Delivery Method Nasal Cannula Room Air Oxygen Flow Rate 2 04/30/23 11:26 04/30/23 11:30 04/30/23 11:35 Temperature 97.2 F L Pulse Rate 86 85 85 Respiratory Rate 23 16 18 Blood Pressure 153/66 H 152/68 H 157/70 H Pulse Oximetry 95 95 94 Oxygen Delivery Method Room Air Room Air Nasal Cannula Oxygen Flow Rate 4 4 2 04/30/23 11:41 04/30/23 12:00 04/30/23 12:26 Temperature 97.4 F L 98.4 F Pulse Rate 86 81 83 Respiratory Rate 92 H 18 14 Blood Pressure 165/61 H 162/65 H 155/78 H Pulse Oximetry 92 92 93 Oxygen Delivery Method Nasal Cannula Room Air Oxygen Flow Rate 2 0 04/30/23 12:55 Temperature 98.7 F Pulse Rate 83 Respiratory Rate 16 Blood Pressure 173/79 H Pulse Oximetry 92 Oxygen Delivery Method Oxygen Flow Rate Oxygen Delivery Method Room Air Oxygen Flow Rate 0 Narrative Exam Narrative: Gen: alert, no acute distress Skin: diffucse maculopapular rash on truck and extremities PULM: clear bilaterally ABD: soft, nontender Ext: left upper extremity swelling, bilateral 1+ edema on lower extremity Neuro: nl speech and affect Objective Labs 04/27/23 05:16 04/30/23 06:04 Labs: Laboratory Results - last 24 hr 04/30/23 06:04 Sodium 135 L Potassium 4.0 Chloride 110 H Carbon Dioxide 17 L BUN < 2 L Creatinine 0.71 Estimated GFR > 60 BUN/Creatinine Ratio 2.8 L Glucose 84 Calcium 7.9 L Total Bilirubin 0.3 AST 32 ALT 22 Alkaline Phosphatase 68 Total Protein 4.5 L Albumin 2.1 L Globulin 2.4 Albumin/Globulin Ratio 0.9 L PFSH Surgical History Status post dilation and curettage (05/07/13) Status post hemorrhoidectomy Status post tonsillectomy and adenoidectomy Social History household members: none Smoking Status: Never smoker alcohol intake: never Assessment & Plan Assessment & Plan narrative: 1. Dysphagia -unclear etiology, preceded new chemo started a month ago -ST swallow eval noted -CT noted no evidence of carcinomatosis, noted known metastatic cancer -stop IV fluid -PEG tube on 04/30, plan to start tube feeds 05/01 2. Superificial vein thrombosis, LUE -us rule out DVT but noted cephalic vein thrombosis -plan for nsaids and warm compresses 2. Weakness -secondary to dec po intake, no evidence of urine/lung infection -PT recommends SNF 3. Chronic urticaria -sev pruritis, not responsive to loratidine or benadryl, slightly responsive to hydroxyzine and TAC 1% crm -cont hydroxyzine 50mg q4h prn and TAC 1% crm prn 4. 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 -CXR findings in LLL related to mets 5. Elevated BNP w/o clinical evidence of CHF -ECHO: EF 70-75%, sm pericardial effusion w/o tamponade 6. Vaginal mucositis -appreciate Dr. Cortez consult, rec steroids and nystatin externally -plan for swab to evaluate for vaginal infection which is pending, may need fluconazole Quality VTE Deep Vein Thrombosis/Pulmonary Embolism Present on Admission: No
--- NOTE | 2023-04-30 17:18 | PC.NURSE ---
Day shift: Pt to OR for PEG tube placement at 1000. Upon return, patient's LUE swollen and slightly warm to the touch. REHAB LIAISON Chava had measured circumference of LUE. Helped patient elevate arm. Ultrasound ordered and done. MD Capone aware. Wrapped arm in warm blanket. Measured LUE circumference throughout the shift and circumference continues to decrease with most recent measurement of 7in on lower arm and 10in on upper arm. PEG tube dressing CDI. Flushed with 30cc water per MD Gregory's order. No nausea. Mild pain well controlled with prescribed pain medications. Pt OOB with 1PA. Mtz patent and draining. Rash continues all over her body - no change. Prescribed medications given with mild relief. Will continue to monitor.
[2023-04-30] MEDS: PRAVASTATIN 20 MG TABLET PO (21:59)
[2023-04-30] MEDS: IBUPROFEN 600 MG TABLET PO (22:01)
[2023-05-01] VITALS: BP 134/66; PULSE 73; RESP 17; TEMP 36; O2SAT 94
[2023-05-01] MEDS: hydrOXYzine pamoate 25 MG CAPSULE 50 MG PO ×4 (02:29→20:42)
[2023-05-01 05:44] VITALS: BP 155/76; PULSE 85; RESP 17; TEMP 36.1; O2SAT 91
[2023-05-01 06:14] LABS: Hematocrit 27.9 % (36-46); Hemoglobin 9.5 g/dL (12.0-16.0); Mean Corpuscular HGB Conc 34.1 % (30-36); Mean Corpuscular Hemoglobin 26.9 PG (26-34); Platelet Count 462 X10^3/uL (150-400); Red Blood Cell Count 3.53 X10^6/uL (4.0-5.2); Red Cell Distribution Width 15.5 % (11.6-14.8); White Blood Cell Count 6.9 X10^3/uL (4.5-11.0)
--- NOTE | 2023-05-01 06:16 | PC.NURSE ---
L arm circumference measures 6.75 at wrist and 10 at upper forearm.
[2023-05-01 06:23] LABS: BUN Creatinine Ratio 6.8 (6-22); Blood Urea Nitrogen 5 mg/dL (7-17); Calcium 8.8 mg/dL (8.4-10.2); Carbon Dioxide 17 mmol/L (22-32); Chloride 110 mmol/L (98-107); Estimated Glomerular Filt Rate > 60 mL/min (>60); Glucose 155 mg/dL (80-110); HEMOLYSIS < 15 (0-50); Potassium 3.9 mmol/L (3.4-5.1); Sodium 136 mmol/L (137-145)
[2023-05-01 08:00] VITALS: BP 141/69; PULSE 82; RESP 18; TEMP 36.6; O2SAT 93
--- NOTE | 2023-05-01 08:45 | P.PN_ITS ---
Subjective Subjective Interval history: Patient's TF started and now at 20mL/hr and tolerating well. Goal is 50. at bedside and questions were answered. Exam Vital Signs (past 8 hours): - 05/01/23 05:44 Temperature 96.9 F L Pulse Rate 85 Respiratory Rate 17 Blood Pressure 155/76 H Pulse Oximetry 91 Oxygen Flow Rate 0 Oxygen Delivery Method Room Air Oxygen Flow Rate 0 Narrative Exam Narrative: Gen: alert, no acute distress Skin: diffucse maculopapular rash on truck and extremities PULM: clear bilaterally ABD: soft, nontender, PEG tube present Ext: left upper extremity swelling, bilateral 1+ edema on lower extremity Neuro: nl speech and affect Objective Labs 05/01/23 05:09 05/01/23 05:09 Labs: Laboratory Results - last 24 hr 05/01/23 05:09 WBC 6.9 RBC 3.53 L Hgb 9.5 L Hct 27.9 L MCV 79.0 L MCH 26.9 MCHC 34.1 RDW 15.5 H Plt Count 462 H Sodium 136 L Potassium 3.9 Chloride 110 H Carbon Dioxide 17 L BUN 5 L Creatinine 0.74 Estimated GFR > 60 BUN/Creatinine Ratio 6.8 Glucose 155 H Calcium 8.8 PFSH Surgical History Status post dilation and curettage (05/07/13) Status post hemorrhoidectomy Status post tonsillectomy and adenoidectomy Social History household members: none Smoking Status: Never smoker alcohol intake: never Assessment & Plan Assessment & Plan narrative: 1. Dysphagia -unclear etiology, preceded new chemo started a month ago -ST swallow eval noted -CT abd/pelvis noted no evidence of carcinomatosis, noted known metastatic cancer -PEG tube placed on 04/30, starting TF with goal of 50 -Patient requiring enteral/parenteral nutrition via PEG tube due to a functional impairment of the gastrointestinal tract secondary to severe dysphagia. Enteral/Parenteral nutrition will be required for > 90 days and will provide the majority of the patient's nutrition. [facility] to manage tube feedings/TPN. -CT chest ordered to rule out masses contributing to dysphagia 2. Superificial vein thrombosis, LUE -us ruled out DVT but noted cephalic vein thrombosis -plan for nsaids and warm compresses 2. Weakness -secondary to dec po intake, no evidence of urine/lung infection -PT recommends SNF, however patient wants to return home with HH 3. Chronic urticaria -sev pruritis, not responsive to loratidine or benadryl, slightly responsive to hydroxyzine and TAC 1% crm -cont hydroxyzine 50mg q4h prn and TAC 1% crm prn 4. 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 -CXR findings in LLL related to mets 5. Elevated BNP w/o clinical evidence of CHF -ECHO: EF 70-75%, sm pericardial effusion w/o tamponade 6. Vaginal mucositis -appreciate Dr. Cortez consult, rec steroids and nystatin externally -plan for swab to evaluate for vaginal infection which is pending, may need fluconazole Dispo: Home with HH when TF at goal. Likely 05/02. Quality VTE Deep Vein Thrombosis/Pulmonary Embolism Present on Admission: No
[2023-05-01] MEDS: ENOXAPARIN 40 MG/0.4 ML SYRINGE SUBCUT (09:03)
[2023-05-01] MEDS: FAMOTIDINE 20 MG TABLET 10 MG PO (09:03)
[2023-05-01] MEDS: NYSTATIN CREAM 30 GM 1 APPLIC TOP ×2 (10:00→20:35)
[2023-05-01] MEDS: TRIAMCINOLONE 0.1% 1 EACH TOP ×2 (10:00→20:38)
--- NOTE | 2023-05-01 10:48 | OT.IP.TRT ---
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 OT Pain Assessment Pain When Pain Assessed At Rest Pain Present Pain Present Denied Pain M4 OT- IP ADL's Start: 04/28/23 13:06 Freq: Status: Active Protocol: Document 05/01/23 11:10 CGR (Rec: 05/01/23 11:21 CGR [id number]) OT [id number] Comments OT Self-Feeding Comments Pt with peg tube OT ADL-Grooming Comments OT Grooming Comments not performed, pt states she performed earlier OT ADL-Oral Care Comments Oral Care Comments not performed, pt states she performed earlier OT ADL-Dressing Comments OT Dressing Comments not performed, pt states she performed earlier OT ADL-Toileting Comments OT Toileting Comments not performed OT ADL-Bathing Comments OT Bathing Comments not performed M5 OT- IP IADL's Start: 04/28/23 13:06 Freq: Status: Active Protocol: Document 04/28/23 13:06 CGR (Rec: 04/28/23 13:19 CGR [id number]) OT-Instrumental Activities of Daily Living Deficits IADL Deficits Identified No Deficits Home Safety Awareness Awareness of Need for Assistance at Home Good Awareness Ability to Problem Solve Emergency Able to Problem Solve Situations Medication Management Medication Management No Deficits Identified Money Management Money Management No Deficits Identified Meal Preparation Meal Preparation Caregiver Provides Assist Combination Presser Combination Presser Caregiver Provides Assist Driving Driving Comments Pt understand that driving is not safe for her at this time. M6 OT- IP Functional Cognition Start: 04/28/23 13:06 Freq: Status: Active Protocol: Document 04/28/23 13:06 CGR (Rec: 04/28/23 13:19 CGR [id number]) Cognitive Factors Limiting Selfcare Function Cognitive Ability Level of Alertness Alert Patient Orientation Name,Age,Birthday,Month,Date, Year,Day of Week,Place, Situation Attention Span Ability Capable of Focused Attention, Capable of Sustained Attention Ability to Follow Commands Able to Follow Multi-Step Commands OT- Vision and Hearing OT- Hearing Assessment OT- Hearing Assessment Hearing Impaired,Use of Hearing Aids OT- Vision Assessment Visual Acuity Glasses All The Time Visual Attentiveness WFL Occular Pursuits WFL Visual Convergence WFL Vision Assessment Comments pt wears bifocals M7 OT- IP Mobility and Balance Start: 04/28/23 13:06 Freq: Status: Active Protocol: Document 04/28/23 13:06 CGR (Rec: 04/28/23 13:19 CGR [id number]) OT-Transfer Assessment Sit to and From Stand Sit to and from Stand Standby Assistance Transfers Transfer Ability Independent,Standby Assistance Technique Transfer Destination Chair,Shower Stall Transfer Technique Stand Step Pivot Devices Transfer Assistive Devices Gait Belt,Front Wheeled Walker Comments Mobility Comments Pt has pain with initial sitting and standing d/t groin rash but once up, pt needs no assist. OT- Balance Assessment Sitting Balance and Reactions Static Sitting Balance Ability Normal Dynamic Sitting Balance Ability Normal M8 OT- IP Objective Assessments Start: 04/28/23 13:06 Freq: Status: Active Protocol: Document 04/29/23 14:13 CCC (Rec: 04/29/23 14:23 CCC [id number]) OT- Coordination Assessment Comments Coordination Comments When other techniques of how to grape picker itmes of finger to thumb of thumb to fingers and to practice tomorrow with pt. M9 OT- IP Assessment and Plan Start: 04/28/23 13:06 Freq: Status: Active Protocol: Document 05/01/23 11:10 CGR (Rec: 05/01/23 11:21 CGR [id number]) OT Summary Assessment and Plan Potential Rehabilitation Potential Excellent Analytic Complexity at Evaluation Low Summary OT Impairments Strength,Functional Mobility, Dressing,Toileting,Bathing, Toilet Transfers,Shower Transfers,Activity Tolerance Progress Towards Goals Slow Progress due to Medical Issues,Slow Progress due to Activity Tolerance Assessment Summary Peg placed yesterday. Pt is in bed when OT entered and states that she is agreeable to LUE exercises. Pt educated on lymphatic drainage techniques, exercises and arm placement. Pt was positioned with hand above wrist, wrist above elbow and elbow above shld in bed. Pt states understanding on UE therex for edema management. Pt left supine in bed with call button within reach. Goals Grooming Goal Independent Dressing Goal Independent Toileting Goal Independent Bathing Goal Independent Toilet Transfer Goal Independent Shower Transfer Goal Independent Days to Meet Goals 5 Frequency of Treatment Frequency Of Treatment Once a Day Treatment Plan OT Treatment Plan ADL Training,Functional Mobility,Patient/Family Education,Discharge Planning Other Treatment Recommendations and Next LB dressing/ FMS items Treatment Focus Discharge Recommendations OT Discharge Recommendations Home with 24/7 Assist Available,Home Health Home Equipment Needs LB dressing equipment Transportation Needs at Discharge Private Vehicle
--- NOTE | 2023-05-01 11:48 | ST.IPDYTX ---
Visit Care Team Role Provider Type Argenis Walter MD Primary Care Provider Non-Staff Specialty: Internal Medicine Address: [address] [place] [address], [phone] Email: Tricia Gregory MD Other Providers Physician Specialty: General Surgery Address: [address] [place] [address], [id number] Email: Tiera Cortez MD Other Providers Physician Specialty: Gynecology [employer] Obstetrics Address: [address] [place] [address], [id number] Email: [email or web address] Tanika Teague DO Emergency Provider Physician Specialty: Emergency Medicine Address: [address] [place] [address], [address] Email: [email or web address] Andrew Read MD Admit Provider Physician Attending Provider Specialty: Internal Medicine Address: [address] [place] [address], [phone] Fax: Email: [email or web address] MANIFOLD OPERATOR Dysphagia Treatment MANIFOLD OPERATOR Dysphagia Treatment Start: 04/29/23 09:22 Freq: Status: Active Protocol: Document 05/01/23 11:38 (Rec: 05/01/23 11:48 [id number]) Dysphagia Treatment Session Time Visit Start Time 11:05 Visit Stop Time 11:35 Total Visit Minutes 30 Visit Information Visit Number 3 Setting Assessment Location Acute Care Visit Type Note Type Treatment Note Next Note Type Next Note Type Treatment Note Patient Information Identification Type Name Treatment Administration Type Straw Pharyngeal Strategies Double Swallow,Alternate Liquids/Solids Treatment Activities ST reviewed general safe swallow strategies and educated on importance of good oral care regardless of nutritional source. Pt stated she was already ensuring good oral care d/t issues w teeth d /t chemo. ST reviewed importance of continuing some swallow initiation even with tube feeding as able. Pt stated she planned to continue w things she is able to keep down 9ice tea, and bananas) ST educated on options of clear liquid protien drinks as an option to trial. Pt verbalized need for no artificial sweeteners. ST provided research for options and found Aden castellanos to have sugars/ glucose only. ST and pt opted to not complete any oral intake trials at this time. Pt would benefit from home health ST as she gains strength to further assess compensatory strategies and further eval of difficulty w solids as appropriate The IDDSI Framework Protocol: IDDSI.1 Assessment Patient Response to Treatment Good Rehab Potential Good Assessment of Improvement Pt with increased PO intake this date, however continues to report increased nausea as trials progress and reporting difficulties swallowing solids at level of the thyroid notch . Recommendations Recommendations Continue Current Diet Liquids Order Thin (IDDSI 0) Diet Order Soft & Bite-sized (IDDSI 6) Medication Recommendations As Tolerated Aspiration Precautions Recommended Precautions Upright at 90 Degrees, Alternate Liquids/Solids, Frequent Rest Periods,Small Bites/Sips,Double Swallow Treatment Plan Appropriate for Continued Therapy Yes Therapy Recommendations ST recommends continuation of POC at this time. Additionally , ST communicated with Dr. Capone regarding possible MBS order. However, upon discussion with Pt she states she had a MBS done 2 years ago and was not able to keep barium down resulting in regurgitation during study. Also, due to patient with limited PO trials this date patient does not appear to be appropriate for MBS at this time.
[2023-05-01 13:20] LABS: Candida species Negative (Negative); Gardnerella vaginalis Negative (Negative); Trichomoas vaginalis Negative (Negative)
--- NOTE | 2023-05-01 14:54 | DI.CT.S_ITS ---
PROCEDURE: CT CHEST WO CON INDICATIONS: assess for masses in mediastium, lungs TECHNIQUE: Noncontrast 5 mm thick sections acquired from the pulmonary apices to the posterior costophrenic angles. 1 mm lung window, 5 mm thick coronal and sagittal and 7 mm axial MIP reformats were then acquired. For radiation dose reduction, the following was used: automated exposure control, adjustment of mA and/or kV according to patient size. COMPARISON: [facility], CT, CT CHEST ABD PEL WO CON, 02/26/2023, 8:44. FINDINGS: Image quality: Excellent. Lungs and pleura: Small pleural effusions with moderate bibasilar atelectasis. Left lower lobe nodularity measuring 0.7 centimeters. New 2-3 millimeters solid nodule in the right lung apex (series 3, image 47). New centrilobular ground-glass in the upper lobes. New 5 millimeter spiculated nodularity in the right upper lobe (series 3, image 128). Stable left lower lobe wedge resection changes. Mediastinum: Heart size is mildly enlarged. Trace pericardial effusion. No mediastinal adenopathy by size criteria. Thoracic aorta and central pulmonary arteries are normal in size. Esophagus is normal in caliber. No hiatal hernia. Mild coronary artery calcifications for age. Bones and chest wall: No suspicious bony lesions. No vertebral body compression fractures. No axillary or supraclavicular adenopathy by size criteria. Thyroid gland is unremarkable . Abdomen: Visualized upper abdominal solid organs and bowel loops appear normal in the absence of contrast. IMPRESSION: Small to moderate bilateral pleural effusions, with moderate bibasilar atelectasis. This obscures the previously documented left lower lobe nodules. A few new nodules are present within the bilateral lungs. These include a 7 millimeter left lower lobe nodule and a 5 millimeter right upper lobe nodule with spiculated margins. Additionally, there is centrilobular ground-glass. Differential includes infection versus new metastatic disease. Short-term interval follow-up is recommended (2-3 months). Dictated by: Adelfo Bright M.D. on 05/01/2023 at 15:38 Approved by: Adelfo Bright M.D. on 05/01/2023 at 15:42
--- NOTE | 2023-05-01 15:55 | PT-IP ANOTE ---
Pt refused to work with PT this afternoon, states she has been up a lot today with nursing and would like to rest. PT will check on pt tomorrow.
[2023-05-01 16:00] VITALS: BP 168/61; PULSE 101; TEMP 36.3; O2SAT 98
[2023-05-01] MEDS: FUROSEMIDE 20 MG/2 ML VIAL IV (16:33)
--- NOTE | 2023-05-01 18:35 | PC.NURSE ---
Day shift: Began tube feeding this AM per orders - patient tolerated well and is currently at 40mL/hr with goal rate of 50mL/hour. PEG tube site CDI. No drainage. Pt denies nausea/cramping/discomfort in abdomen. Pt denies pain. OOB to shower and to chair today. Will continue to monitor.
[2023-05-01] MEDS: PRAVASTATIN 20 MG TABLET PO (20:36)
[2023-05-01 21:00] VITALS: O2SAT 98
[2023-05-02] VITALS (7 sets, daily range): BP systolic 119–158; BP diastolic 54–69; PULSE 64–82; RESP 16–19; TEMP 36–36.4; O2SAT 91–93
[2023-05-02] MEDS: OXYCODONE IR 5 MG TABLET PO ×2 (06:36→11:07)
[2023-05-02] MEDS: FAMOTIDINE 20 MG TABLET 10 MG PO (09:09)
[2023-05-02] MEDS: FUROSEMIDE 20 MG/2 ML VIAL IV (09:13)
[2023-05-02] MEDS: TRIAMCINOLONE 0.1% 1 EACH TOP ×2 (09:15→21:48)
[2023-05-02] MEDS: NYSTATIN CREAM 30 GM 1 APPLIC TOP ×2 (09:15→21:47)
[2023-05-02] MEDS: ENOXAPARIN 40 MG/0.4 ML SYRINGE SUBCUT (09:15)
--- NOTE | 2023-05-02 11:02 | PC.NURSE ---
Day shift: Pt c/o ABD discomfort at this time. PEG remains patent and there was less than 5 mls residual in the tube. The fluid was clear.
[2023-05-02 11:39] LABS: Magnesium 1.5 mg/dL (1.6-2.3)
--- NOTE | 2023-05-02 12:00 | PT.IPTN ---
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) Dehydration (04/27/23) Weakness (04/27/23) Surgery Performed Operation Date: 04/30/23 12:00 Actual Procedures p Peg Tube Insertion - Tricia Gregory MD Physical Therapy Treatment Note M2 PT-IP Current Condition Start: 04/26/23 13:24 Freq: NEEDED Status: Active Protocol: Document 04/26/23 10:45 AB (Rec: 04/26/23 13:42 AB [id number]) Physical Therapy Current Condition Current Condition Evaluation Date 04/26/23 Treatment Diagnosis UTI; difficulty in walking Onset Date 04/25/23 M3 PT-IP Subjective Start: 04/26/23 13:24 Freq: NEEDED Status: Active Protocol: Document 05/02/23 13:36 TS (Rec: 05/02/23 13:51 TS [id number]) Subjective Physical Therapy Visit Type Type Treatment Note Visit Start Time 12:00 Visit Stop Time 12:33 Total Visit Minutes 33 Notes SO present Number of ASSEMBLER 1ST SHIFT Visits 3 Physical Therapy Visit Comments Patient Comments Pt found resting in bed, reports some discomfort in abdomen, is agreeable to PT. M4 PT-IP Mobility and Gait Start: 04/26/23 13:24 Freq: NEEDED Status: Active Protocol: Document 05/02/23 13:36 TS (Rec: 05/02/23 13:51 TS [id number]) PT-Bed Mobility Assessment Rolling Level of Assist Standby Assistance Supine to Sit Supine to Sit Standby Assistance,1 Person Assistance Sit to Supine Sit to Supine Moderate Assistance,1 Person Assistance Scooting Scooting to Edge of Bed Contact Guard Assistance PT-Transfer Assessment Sit to and From Stand Sit to and from Stand Standby Assistance,1 Person Assistance Equipment Transfer Assistive Device Gait Belt,Front Wheeled Walker Orthotic/Prosthetic Devices or Brace: No Transfers Transfer Destination Wheelchair Transfer Technique Stand Step Pivot Transfer Ability Level of Assist Contact Guard Assistance Comments Mobility Comments Pt found resting in bed, agreeable to PT. Logroll to L side SBA with BUE support and handrail assist. Supine to sit SBA, required cues for handplacement on bed and sequencing. Sit to stand SBA with FWW, pt has good standing balance with no retroleaning. She ambulated ~80' SBA with FWW, she became nauseous and required seated rest break in chair. Pt sat for ~5mins for rest break, transferred to w/c [facility] with FWW, was taken back to room. BP in sitting 153/62, pt reported nausea symptoms resolving. Sit to supine into bed ModA for LEs, pt repositioned trunk into bed. She was left in bed, with all needs met, RN notified. Gait Assessment Gait Gait Assistance Required: Standby Assistance Distance (Feet) 80 Able to Maintain Weight Bearing Status Yes During Gait Assistive Devices Assistive Device Gait Belt,Front Wheeled Walker Orthotic/Prosthetic Devices or Brace: No Gait Deviations General Gait Pattern Decreased Stride Length, Decreased Feet Clearance Factors Limiting Gait Function Factors Limiting Gait Function Decreased Activity Tolerance, Decreased Strength,Poor Balance Comments Gait Comments See mobility comments. PT-Balance Assessment Sitting Balance and Reactions Static Sitting Balance Ability Good Dynamic Sitting Balance Ability Good Standing Balance and Reactions Static Standing Balance Ability Good Dynamic Standing Balance Ability Good Device Used FWW M5 PT-IP Objective Assessments Start: 04/26/23 13:24 Freq: NEEDED Status: Active Protocol: Document 04/26/23 10:45 AB (Rec: 04/26/23 13:42 AB [id number]) Orientation Orientation/Cognition Level of Alertness Alert Orientation Name,Place,Situation Language Function Ability Hard of Hearing Safety Awareness Decreased Safety Awareness Memory Description No Deficits Noted Gross Range of Motion Lower Extremity ROM Assessment Within Functional Limits Strength Lower Extremity Strength Assessment Bilaterally Impaired Hip 3+/5 Knee 3+/5 Muscle Tone Muscle Tone WNL Yes M6 PT-IP Treatment Start: 04/26/23 13:24 Freq: NEEDED Status: Active Protocol: Document 05/02/23 13:36 TS (Rec: 05/02/23 13:51 [id number]) Physical Therapy Treatment Education Education Provided Safety M7 PT-IP Assessment and Plan Start: 04/26/23 13:24 Freq: NEEDED Status: Active Protocol: Document 05/02/23 13:36 TS (Rec: 05/02/23 13:51 TS [id number]) PT Summary Assessment and Plan Potential Rehabilitation Potential Good Summary Impairments Pain,ROM,Strength,Balance, Coordination,Sensation,Tone, Cognition,Bed Mobility, Transfers,Gait,Activity Tolerance Progress Towards Goals Slow Progress due to Medical Issues,Slow Progress due to Activity Tolerance Assessment Summary Howard is making some progress with her mobility this session but is limited by her activity tolerance and ongoing medical issues today. She improved her supine to sit to SBA with some cueing for sequencing. She continues to be SBA for sit to stand and use of FWW. She ambulated ~80' SBA with FWW today, became nauseous and required seated rest break for ~5'mins, her BP was unremarkable. She required ModA this session for getting her LEs back into bed . PT continues to recommend home with assist and HHPT. Goals Bed Mobility Goal Minimal Assistance Transfer Goal Minimal Assistance,Front Wheeled Walker Gait Goal Standby Assistance,Front Wheel Walker Gait Distance 100 Other Goals improve bed mobility, transfers , ambulation using LRAQ/without AD 250 ft mod I Days to Meet Goals 10 Frequency of Treatment Frequency Of Treatment Once a Day Treatment Plan Physical Therapy Treatment Plan Bed Mobility Training,Transfer Training,Gait Training, Therapeutic Exercise,Balance Retraining,Discharge Planning, Hot or Cold Pack,Neuromuscular Re-ed,Coordination Retraining Precautions Other Precautions falls Recommendations To Nursing Amount of Assist Needed 1 Person Assist Discharge Recommendations PT Discharge Recommendations Home with Assistance,Home with / Assist Available,Home Health Equipment Needed for Home Before FWW Discharge Transportation Needs at Discharge Private Vehicle
[2023-05-02] MEDS: MAGNESIUM SULFATE 2 GM/50 ML PIGGYBACK IV (12:17)
--- NOTE | 2023-05-02 12:53 | CM.DPNOTE ---
DCP Note According to Dr Garcia, patient is not medically stable today but expected to be tomorrow. Spoke w/Sharon at [facility], reviewed discharge plan. [facility] can send an RN to tomorrow at approx 1500 to complete the teach before patient returns home. This PASSENGER CAR INSPECTOR faxed medical prog note from Dr Garcia dated 05.01.23 w/tube feed orders. Requested that Sharon see if [facility] can provide Boost brand formula instead of Jevity , per patient's request, Sharon will call back with this info. Requested that Sharon include daughter Varinder ([facility]) on any scheduling plans by giving her a call to update. Placed call to [facility] to update that patient expected to discharge tomorrow. Requested RN/PT/OT/BAKERY DEMONSTRATOR, they will confirm patient has an active PCP and get back to this PASSENGER CAR INSPECTOR. Plan: Anticipate discharge home tomorrow w/supportive family via private auto. [facility] to provide teach tomorrow at bedside around 1500 before patient discharges home. Waiting on [facility] to confirm RN/PT/OT/BAKERY DEMONSTRATOR coverage Will plan to review above with patient and family. EFREN
[2023-05-02] MEDS: CYCLOBENZAPRINE 10 MG TABLET 5 MG PO ×2 (13:29→23:05)
[2023-05-02] MEDS: hydrOXYzine pamoate 25 MG CAPSULE 50 MG PO ×2 (14:44→21:50)
--- NOTE | 2023-05-02 15:20 | DIET.PN1 ---
Dietary Progress Note Pt with full sensation after tolerating 50mL/h continuous enteral feeding via PEG for 8h overnight. Recc switch to bolus feeds. Ht: 152.4 cm Wt: 59.5 kg BMI: 25.6 Last BM: 05/01/23 (05/01/23 10:00) MNA: 14 Luis Angel Score: 18 Diet: 04/30/23 Lunch Dysphagia Diet Diet Modifications: Food Texture: Level 6-Soft & Bite-sized Liquid Consistency: Level 0 - Thin 05/01/23 Lunch Tube Feeding Diet Diet Modifications: TF Supplement type: Jevity 1.2 jewels TF mode of delivery: bolus Starting bolus volume: 240mL Max total daily volume in mL: 2,000 Free fluid: 100 Free Water Frequency: Q4H Nutrition Percent Meal Consumed 75% 04/30/23 18:00 Type of Feeding Tube PEG 05/02/23 09:36 Type of Feeding Tube PEG 05/02/23 06:00 Type of Feeding Tube PEG 05/02/23 02:00 Type of Feeding Tube PEG 05/01/23 22:00 Type of Feeding Tube PEG 05/01/23 18:34 Type of Feeding Tube PEG 05/01/23 14:47 Type of Feeding Tube PEG 05/01/23 10:46 Labs: RBC 3.53 X10^6/uL (4.0-5.2) L 05/01/23 05:09 Hgb 9.5 g/dL (12.0-16.0) L 05/01/23 05:09 Hct 27.9 % (36-46) L 05/01/23 05:09 Creatinine 0.74 mg/dL (0.52-1.04) 05/01/23 05:09 Lactate 1.0 mmol/L (0.7-2.1) 04/25/23 19:50 NT-Pro-B Natriuret Pep 3410 pg/mL (<450) H 04/25/23 17:00 Nutrition Diagnosis: Inability to meet nutrition needs r/t dysphagia aeb pt unable to sit for MBSS, pt desires placement of PEG tube to avoid losing weight while going through tx for metastatic cancer. Interventions: 1. Recc transition to bolus enteral feeding via PEG tube. Formula: Jevity 1.2 Starting bolus: 240mL five times per day (0800, 1100, 1300, 1600, 1800) Goal bolus: 300mL four times per day (0800, 1100, 1400, 1800) Free Water Flushes: 100mL q4h 2. HOB elevated >30 degrees for one hour after feeds. EER: Goal rate feeding and flushes provide: 1440kcals (29kcal/kg), 67g PRO (1.4g/kg), 203g CHO, 968mL free water from formula, 600mL flushes providing 1568mL total fluids (32mL/kg). Electronically Signed by: Nurys Crump 05/02/23 15:20 Clinical Dietitian [address] [address]
--- NOTE | 2023-05-02 16:30 | OT.IP.TRT ---
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 Pt agreed to work on FMS. Patient/Caregiver Goals To go home. M4 OT- IP ADL's Start: 04/28/23 13:06 Freq: Status: Active Protocol: Document 05/01/23 11:10 CGR (Rec: 05/01/23 11:21 CGR [id number]) OT [id number]-Luetygu Comments OT Self-Feeding Comments Pt with peg tube OT ADL-Grooming Comments OT Grooming Comments not performed, pt states she performed earlier OT ADL-Oral Care Comments Oral Care Comments not performed, pt states she performed earlier OT ADL-Dressing Comments OT Dressing Comments not performed, pt states she performed earlier OT ADL-Toileting Comments OT Toileting Comments not performed OT ADL-Bathing Comments OT Bathing Comments not performed M5 OT- IP IADL's Start: 04/28/23 13:06 Freq: Status: Active Protocol: Document 04/28/23 13:06 CGR (Rec: 04/28/23 13:19 CGR [id number]) OT-Instrumental Activities of Daily Living Deficits IADL Deficits Identified No Deficits Home Safety Awareness Awareness of Need for Assistance at Home Good Awareness Ability to Problem Solve Emergency Able to Problem Solve Situations Medication Management Medication Management No Deficits Identified Money Management Money Management No Deficits Identified Meal Preparation Meal Preparation Caregiver Provides Assist [employer] Head Inspector And Adjuster [employer] Head Inspector And Adjuster Caregiver Provides Assist Driving Driving Comments Pt understand that driving is not safe for her at this time. M6 OT- IP Functional Cognition Start: 04/28/23 13:06 Freq: Status: Active Protocol: Document 04/28/23 13:06 CGR (Rec: 04/28/23 13:19 R [id number]) Cognitive Factors Limiting Selfcare Function Cognitive Ability Level of Alertness Alert Patient Orientation Name,Age,Birthday,Month,Date, Year,Day of Week,Place, Situation Attention Span Ability Capable of Focused Attention, Capable of Sustained Attention Ability to Follow Commands Able to Follow Multi-Step Commands OT- Vision and Hearing OT- Hearing Assessment OT- Hearing Assessment Hearing Impaired,Use of Hearing Aids OT- Vision Assessment Visual Acuity Glasses All The Time Visual Attentiveness WFL Occular Pursuits WFL Visual Convergence WFL Vision Assessment Comments pt wears bifocals M7 OT- IP Mobility and Balance Start: 04/28/23 13:06 Freq: Status: Active Protocol: Document 04/28/23 13:06 CGR (Rec: 04/28/23 13:19 R [id number]) OT-Transfer Assessment Sit to and From Stand Sit to and from Stand Standby Assistance Transfers Transfer Ability Independent,Standby Assistance Technique Transfer Destination Chair,Shower Stall Transfer Technique Stand Step Pivot Devices Transfer Assistive Devices Gait Belt,Front Wheeled Walker Comments Mobility Comments Pt has pain with initial sitting and standing d/t groin rash but once up, pt needs no assist. OT- Balance Assessment Sitting Balance and Reactions Static Sitting Balance Ability Normal Dynamic Sitting Balance Ability Normal M8 OT- IP Objective Assessments Start: 04/28/23 13:06 Freq: Status: Active Protocol: Document 04/29/23 14:13 [facility] (Rec: 04/29/23 14:23 [facility] [id number]) OT- Coordination Assessment Comments Coordination Comments When other techniques of how to steamfitter supervisor items of finger to thumb of thumb to fingers and to practice tomorrow with pt. M9 OT- IP Assessment and Plan Start: 04/28/23 13:06 Freq: Status: Active Protocol: Document 05/02/23 15:53 [facility] (Rec: 05/02/23 16:34 CCC [id number]) OT Summary Assessment and Plan Potential Rehabilitation Potential Excellent Analytic Complexity at Evaluation Low Summary OT Impairments Strength,Functional Mobility, Dressing,Toileting,Bathing, Toilet Transfers,Shower Transfers,Activity Tolerance Progress Towards Goals Slow Progress due to Medical Issues,Slow Progress due to Activity Tolerance Assessment Summary Able to go over FMS activities and do gentle stretching for pt's hand. Also able to go over ways to off load the weight of her phone on her thumb but holding her phone in her palm versus pressed up on her thumb. Encouraged pt to use pillows/rolled up towels to help support items such as phone, book, etc versus just holding onto items with her hands which eventually causes fatigue and causes items to drop from her hands. Pt looking to go home with home health tomorrow and family to stay with her. Goals Grooming Goal Independent Dressing Goal Independent Toileting Goal Independent Bathing Goal Independent Toilet Transfer Goal Independent Shower Transfer Goal Independent Days to Meet Goals 4 Frequency of Treatment Frequency Of Treatment Once a Day Treatment Plan OT Treatment Plan ADL Training,Functional Mobility,Patient/Family Education,Discharge Planning Other Treatment Recommendations and Next LB dressing/ FMS items Treatment Focus Discharge Recommendations OT Discharge Recommendations Home with 24/ Assist Available,Home Health Other Discharge Recommendations Pt would benefit form seeing a hand therapist when able to work on trying to get back to playing her clarinet. Transportation Needs at Discharge Private Vehicle
--- NOTE | 2023-05-02 17:44 | P.PN_ITS ---
Subjective Subjective Interval history: Had abd pain this morning with TF rate at 50. Infusion stopped. Patient notes pain around tube site and bloating feeling. Dietary assessed and will try boluses instead of continuous rate. Exam Vital Signs (past 8 hours): - 05/02/23 13:55 Temperature 97.2 F L Pulse Rate 64 Respiratory Rate 19 Blood Pressure 158/59 H Pulse Oximetry 91 Oxygen Flow Rate 0 Oxygen Delivery Method Room Air Oxygen Flow Rate 0 Narrative Exam Narrative: Gen: alert, no acute distress Skin: diffucse maculopapular rash on truck and extremities PULM: clear bilaterally ABD: soft, mild tenderness around PEG site Ext: left upper extremity swelling, bilateral 1+ edema on lower extremity Neuro: nl speech and affect Objective Labs 05/01/23 05:09 05/01/23 05:09 Labs: Laboratory Results - last 24 hr 05/01/23 05:09 Magnesium 1.5 L [facility] Surgical History Status post dilation and curettage (05/07/13) Status post hemorrhoidectomy Status post tonsillectomy and adenoidectomy Social History household members: none Smoking Status: Never smoker alcohol intake: never Assessment & Plan Assessment & Plan narrative: 1. Dysphagia -unclear etiology, preceded new chemo started a month ago -ST swallow eval noted -CT abd/pelvis noted no evidence of carcinomatosis, noted known metastatic cancer -PEG tube placed on 04/30, starting TF with goal of 50 -Patient requiring enteral/parenteral nutrition via PEG tube due to a functional impairment of the gastrointestinal tract secondary to severe dysphagia. Enteral/Parenteral nutrition will be required for > 90 days and will provide the majority of the patient's nutrition. [facility] to manage tube feedings/TPN. -CT chest ordered to rule out masses contributing to dysphagia, showed some basilar nodules and new R apex nodules. No compressive masses. -didn't tolerate TF at 50/hr, so dietary changing to boluses to see if better tolerated 2. Superificial vein thrombosis, LUE -us ruled out DVT but noted cephalic vein thrombosis -plan for nsaids and warm compresses 2. Weakness -secondary to dec po intake, no evidence of urine/lung infection -PT recommends SNF, however patient wants to return home with 3. Chronic urticaria -sev pruritis, not responsive to loratidine or benadryl, slightly responsive to hydroxyzine and TAC 1% crm -cont hydroxyzine 50mg q4h prn and TAC 1% crm prn 4. 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 -CXR findings in LLL related to mets 5. Elevated BNP w/o clinical evidence of CHF -ECHO: EF 70-75%, sm pericardial effusion w/o tamponade 6. Vaginal mucositis -appreciate Dr. Cortez consult, rec steroids and nystatin externally -plan for swab to evaluate for vaginal infection which is pending, may need fluconazole Dispo: Home with HH on 05/03. Quality VTE Deep Vein Thrombosis/Pulmonary Embolism Present on Admission: No
[2023-05-02] MEDS: PRAVASTATIN 20 MG TABLET PO (21:47)
[2023-05-02] MEDS: ACETAMINOPHEN 325 MG TABLET 650 MG PO (23:04)
[2023-05-03 05:45] LABS: Alanine Aminotransferase 20 IU/L (<35); Albumin 2.4 g/dL (3.5-5.0); Alkaline Phosphatase 70 U/L (38-126); Aspartate Aminotransferase 26 IU/L (14-36); BUN Creatinine Ratio 14.6 (6-22); Bilirubin Total 0.3 mg/dL (0.2-1.3); Blood Urea Nitrogen 12 mg/dL (7-17); Calcium 8.9 mg/dL (8.4-10.2); Carbon Dioxide 25 mmol/L (22-32); Chloride 108 mmol/L (98-107); Estimated Glomerular Filt Rate > 60 mL/min (>60); Globulin 2.4 g/dL (1.7-4.1); Glucose 101 mg/dL (80-110); HEMOLYSIS 22 (0-50); Potassium 3.5 mmol/L (3.4-5.1); Sodium 136 mmol/L (137-145); Total Protein 4.8 g/dL (6.3-8.2)
[2023-05-03 06:00] VITALS: BP 156/69; PULSE 79; RESP 18; TEMP 36.6; O2SAT 92
[2023-05-03 06:18] LABS: Magnesium 1.9 mg/dL (1.6-2.3)
[2023-05-03 06:36] LABS: Phosphorous 3.1 mg/dL (2.8-4.1)
[2023-05-03] MEDS: CYCLOBENZAPRINE 10 MG TABLET 5 MG PO ×3 (06:39→21:31)
[2023-05-03] MEDS: OXYCODONE IR 5 MG TABLET PO (09:05)
[2023-05-03] MEDS: hydrOXYzine pamoate 25 MG CAPSULE 50 MG PO ×2 (09:10→19:56)
[2023-05-03] MEDS: FUROSEMIDE 20 MG/2 ML VIAL IV (09:13)
[2023-05-03] MEDS: ENOXAPARIN 40 MG/0.4 ML SYRINGE SUBCUT (09:13)
--- NOTE | 2023-05-03 10:20 | PC.NURSE ---
Pt A&Ox4, VSS. Tolerated initiation of tube feed as ordered, c/o of pain, cramping, bloating. Total amount given 61mL. Pump stopped, Dr. Garcia notified.
--- NOTE | 2023-05-03 10:26 | PT-IP ANOTE ---
Pt refused to work with PT this AM. Pt reports she is kind of out of it and having some pain. If time is available PT will check back later.
[2023-05-03] MEDS: FAMOTIDINE 20 MG TABLET 10 MG PO (10:37)
[2023-05-03 12:00] VITALS: BP 171/82; PULSE 104; RESP 16; TEMP 38.2; O2SAT 91
--- NOTE | 2023-05-03 13:14 | DI.RAD.S_ITS ---
PROCEDURE: XR CHEST 1V INDICATIONS: fever, hypoxia TECHNIQUE: One view of the chest was acquired. COMPARISON: [facility], CR, XR CHEST 1V, 04/25/2023, 16:33. FINDINGS: Surgical changes and devices: None. Lungs and pleura: Streaky retrocardiac opacities may represent atelectasis versus early infection. No pleural effusions or pneumothorax. Mediastinum: Mediastinal contours appear normal. Heart size is normal. Bones and chest wall: No suspicious bony lesions. Overlying soft tissues appear unremarkable. IMPRESSION: Streaky retrocardiac opacities may represent atelectasis versus infection. Dictated by: Ronnie Washington M.D. on 05/03/2023 at 12:44 Approved by: Ronnie Washington M.D. on 05/03/2023 at 12:54
[2023-05-03] MEDS: POTASSIUM CHLORIDE IN WATER 10 MEQ/100 ML PIGGYBACK 100 MEQ IV ×2 (13:27→16:53)
--- NOTE | 2023-05-03 14:33 | PT-IP ANOTE ---
Pt reports having pain in abdomen and would like to rest. PT will check back in with pt tomorrow.
[2023-05-03] MEDS: NYSTATIN CREAM 30 GM 1 APPLIC TOP ×2 (14:38→21:31)
[2023-05-03] MEDS: PIPERACILLIN/TAZO 4.5 GM in SODIUM CHLORIDE 0.9% 100 ML IV (15:10)
--- NOTE | 2023-05-03 16:32 | PM.PN.1 ---
Subjective Subjective Interval history: Had a temp of 100.8F and put on 2L. CXR shows possible new L retrocardiac PNA. Started on Zosyn due to hospital acquired. Did not tolerate tube feeds again with abd pain and bloating at only 60mL in. TF held. Exam Vital Signs (past 8 hours): - 05/03/23 12:00 Temperature 100.8 F H Pulse Rate 104 H Respiratory Rate 16 Blood Pressure 171/82 H Pulse Oximetry 91 Oxygen Flow Rate 2 Oxygen Delivery Method Room Air Oxygen Flow Rate 2 Narrative Exam Narrative: Gen: alert, no acute distress CV: tachycardic, no murmurs PULM: clear bilaterally ABD: soft, mild tenderness around PEG site Ext: left upper extremity swelling, bilateral 1+ edema on lower extremity Skin: Diffuse maculopapular rash on trunk and extremities Neuro: nl speech and affect Objective Labs 05/01/23 05:09 05/03/23 05:26 Labs: Laboratory Results - last 24 hr 05/03/23 05:26 Sodium 136 L Potassium 3.5 Chloride 108 H Carbon Dioxide 25 BUN 12 Creatinine 0.82 Estimated GFR > 60 BUN/Creatinine Ratio 14.6 Glucose 101 Calcium 8.9 Phosphorus 3.1 Magnesium 1.9 Total Bilirubin 0.3 AST 26 ALT 20 Alkaline Phosphatase 70 Total Protein 4.8 L Albumin 2.4 L Globulin 2.4 Albumin/Globulin Ratio 1.0 PFSH Surgical History Status post dilation and curettage (05/07/13) Status post hemorrhoidectomy Status post tonsillectomy and adenoidectomy Social History household members: none Smoking Status: Never smoker alcohol intake: never Assessment & Plan Assessment & Plan narrative: # Dysphagia s/p PEG tube -unclear etiology, preceded new chemo started a month ago -ST swallow eval noted -CT abd/pelvis noted no evidence of carcinomatosis, noted known metastatic cancer -PEG tube placed on 04/30, starting TF with goal of 50 -Patient requiring enteral/parenteral nutrition via PEG tube due to a functional impairment of the gastrointestinal tract secondary to severe dysphagia. Enteral/Parenteral nutrition will be required for > 90 days and will provide the majority of the patient's nutrition. [facility] to manage tube feedings/TPN. -CT chest ordered to rule out masses contributing to dysphagia, showed some basilar nodules and new R apex nodules. No compressive masses. -didn't tolerate TF at 50/hr, so dietary changing to boluses to see if better tolerated -again failed bolus at 60mL in she had abd pain and bloating, TF stopped # acute hypoxic resp failure due to possible new pneumonia -requiring 2L NC -CXR shows possible L retrocardiac opacities representing atelectasis vs PNA -started Zosyn -wean O2 as able # Superificial vein thrombosis, LUE -us ruled out DVT but noted cephalic vein thrombosis -plan for nsaids and warm compresses # Weakness -secondary to dec po intake, no evidence of urine/lung infection -PT recommends SNF, however patient wants to return home with # Chronic urticaria -sev pruritis, not responsive to loratidine or benadryl, slightly responsive to hydroxyzine and TAC 1% crm -cont hydroxyzine 50mg q4h prn and TAC 1% crm prn # 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 -CXR findings in LLL related to mets # Elevated BNP w/o clinical evidence of CHF -ECHO: EF 70-75%, sm pericardial effusion w/o tamponade # Vaginal mucositis -appreciate Dr. Cortez consult, rec steroids and nystatin externally -plan for swab to evaluate for vaginal infection which is pending, may need fluconazole Dispo: Pending TF advancement. 1-2 more days. Quality VTE Deep Vein Thrombosis/Pulmonary Embolism Present on Admission: No
[2023-05-03 18:17] VITALS: BP 137/57; PULSE 96; RESP 16; TEMP 38; O2SAT 92
[2023-05-03] MEDS: PIPERACILLIN/TAZO 3.375 GM in SODIUM CHLORIDE 0.9% 100 ML IV (18:28)
--- NOTE | 2023-05-03 18:43 | PC.NURSE ---
Pt A&Ox4. Pt had limited tolerance for PO meds, medical staff services coordinator staggered per pt request. Started bolus tube feed per order, pt tolerated poorly with c/o pain and bloating, abd tenderness; bolus stopped after [address] Garcia notified, okayed stop of tube feed pending dietary consult. Febrile (100.8F), shivering, tachycardic (low 100s) with c/o cold (unable to get accurate BP d/t shivering). Dr. Garcia notified, abx ordered (see MAR), tests run. 2-dose potassium given as divided dose d/t Zosyn order, second dose retimed and administered (see notes in MAR). Pt shivering reduced, temperature down to 100.4F, SBP 130s. Pt agreed to slower administration rate of tube feed and tube feed restarted with Dr. Garcia OK at 24 mL/hr, pt tolerating well, continuing. Initial dose Zosyn complete, second dose running.
[2023-05-03 19:52] LABS: Appearance Urine UA CLEAR; Bilirubin Urine UA NEGATIVE (NEGATIVE); Color Urine UA YELLOW; Glucose Urine UA NEGATIVE (Negative); Ketones Urine UA NEGATIVE (NEGATIVE); Leukocyte Esterase Urine UA 1+ (NEGATIVE); Nitrite Urine UA NEGATIVE (Negative); Occult Blood Urine UA 2+ (Negative); Protein Urine UA NEGATIVE (Negative); Specific Gravity Urine UA 1.015 (1.000-1.035); Urobilinogen Urine UA 0.2 E.U./dL (0.2)
[2023-05-03 20:09] LABS: Bacteria Urine Occasional (0-1); Culture Indicated Urine Specimen Cultured; RBC Urine 1-5/HPF (0-5/HPF); Squamous Epithelial Cell Urine 0-1 /HPF (0-5/HPF); WBC Urine 1-5/HPF (0-5/HPF)
[2023-05-03 21:00] VITALS: O2SAT 92
[2023-05-03] MEDS: SENNOSIDES 8.6 MG TABLET 17.2 MG PO (21:31)
[2023-05-03] MEDS: PRAVASTATIN 20 MG TABLET PO (21:32)
[2023-05-04] VITALS (8 sets, daily range): BP systolic 144–156; BP diastolic 63–80; PULSE 75–89; RESP 16–18; TEMP 36.2–37.3; O2SAT 92–96
[2023-05-04] MEDS: PIPERACILLIN/TAZO 3.375 GM in SODIUM CHLORIDE 0.9% 100 ML IV ×3 (00:49→21:39)
[2023-05-04 04:46] LABS: Blood Urea Nitrogen 13 mg/dL (7-17); Calcium 8.6 mg/dL (8.4-10.2); Carbon Dioxide 30 mmol/L (22-32); Chloride 99 mmol/L (98-107); Estimated Glomerular Filt Rate > 60 mL/min (>60); Glucose 143 mg/dL (80-110); HEMOLYSIS < 15 (0-50); Potassium 3.6 mmol/L (3.4-5.1); Sodium 133 mmol/L (137-145)
[2023-05-04 04:50] LABS: Add Manual Diff / Slide Review NO; Basophils Absolute Auto 0 /uL (0-100); Basophils Percent Auto 0.4 % (0-2); Eosinophils Absolute Auto 400 /uL (0-450); Eosinophils Percent Auto 4.8 % (2-4); Hematocrit 26.4 % (36-46); Lymphocytes Absolute Auto 1300 /uL (1100-4500); Lymphocytes Percent Auto 15.5 % (25-40); Mean Corpuscular Hemoglobin 26.9 PG (26-34); Mean Corpuscular Volume 79.2 fL (80-100); Monocytes Absolute Auto 400 /uL (0-900); Monocytes Percent Auto 5.5 % (3-14); Neutrophils Absolute Auto 6000 /uL (1500-7000); Neutrophils Percent Auto 73.8 % (50-75); Platelet Count 410 X10^3/uL (150-400); Red Blood Cell Count 3.34 X10^6/uL (4.0-5.2); White Blood Cell Count 8.1 X10^3/uL (4.5-11.0)
[2023-05-04] MEDS: CYCLOBENZAPRINE 10 MG TABLET 5 MG PO ×3 (06:04→21:39)
[2023-05-04] MEDS: OXYCODONE IR 5 MG TABLET PO (06:05)
[2023-05-04 08:08] LABS: Magnesium 1.5 mg/dL (1.6-2.3); Phosphorous 3.6 mg/dL (2.8-4.1)
[2023-05-04] MEDS: hydrOXYzine pamoate 25 MG CAPSULE 50 MG PO ×3 (08:18→21:55)
[2023-05-04] MEDS: FAMOTIDINE 20 MG TABLET 10 MG PO (08:18)
[2023-05-04] MEDS: ENOXAPARIN 40 MG/0.4 ML SYRINGE SUBCUT (08:18)
[2023-05-04] MEDS: MAGNESIUM SULFATE 4 GM/100 ML PIGGYBACK IV (08:41)
--- NOTE | 2023-05-04 11:06 | CM.DPNOTE ---
Addendum entered by CHARLY Thomas 05/04/23 14:09: ADD: Olaf at [facility] updated today that patient staying at least until Friday. Olaf unsure if RN completed a teach at bedside yesterday, Olaf quniones suggested [facility] provide teach once patient returns home as he feels patients are able to focus much better once home. This CM team will plan to follow closely and can update [facility] and susy LEON Friday. EFREN Original Note: DCP Note According to Dr Garcia, patient is still complaining of pain and bloating at peg tube site, even with flow as slow as 25ml. Dr Garcia will keep patient until Friday so that dietary can reevaluate plan. Goals of care may need to be readdressed if patient cannot tolerate peg tube. CM team will plan to follow patient's clinical course closely. Patient received training at bedside from [facility] Friday05.03.23- will plan to confirm this w/patient today. Plan: Discharge was arranged for home w/family, tube feeds w/[facility] following, and susy LEON for RN/PT/OT/MAGAZINE DESIGNER. EFREN
--- NOTE | 2023-05-04 11:21 | DI.RAD.S_ITS ---
PROCEDURE: XR ABDOMEN 1V INDICATIONS: check positioning of PEG tube TECHNIQUE: One view of the abdomen acquired. COMPARISON: None. FINDINGS: Surgical changes and devices: Percutaneous gastrostomy tube bulb projects over the stomach Bowel: Bowel gas pattern is normal. Soft tissues: No suspicious abdominal calcifications. Visualized solid organ contours appear normal in size. Bones: No suspicious bony lesions. Convex right scoliosis, with degenerative disc disease. IMPRESSION: Percutaneous gastrostomy tube bulb projects over the stomach. Dictated by: Adelfo Bright M.D. on 05/04/2023 at 12:08 Approved by: Adelfo Bright M.D. on 05/04/2023 at 12:09
--- NOTE | 2023-05-04 11:45 | PT-IP ANOTE ---
Pt refused PT x2 today, reports that she is having pain from PEG tube/overfeeding and feels too weak to walk. reviewed LE exercises, discussed importance of mobility. No charge.
[2023-05-04 12:43] LABS: Folate 9.9 ng/mL (2.76-20.0); Vitamin B12 > 1000 pg/mL (239-931)
[2023-05-04] MEDS: THIAMINE 100 MG TABLET PO (12:44)
[2023-05-04] MEDS: TRIAMCINOLONE 0.1% CREAM 15 GM 1 APPLIC TOP ×2 (12:56→21:43)
--- NOTE | 2023-05-04 14:11 | PM.PN.1 ---
Subjective Subjective Interval history: Patient continues to have difficulty tolerating TF even at 25mL/hr. She reports pain around the PEG site. Abd XR ordered which shows good placement. Patient notes she hasn't had a BM in several days, but she doesn't want laxatives. May consider suppository. Exam Vital Signs (past 8 hours): - 05/04/23 07:43 05/04/23 08:56 Temperature 99.1 F Pulse Rate 75 Respiratory Rate 18 Blood Pressure 150/80 H Pulse Oximetry 94 95 Oxygen Delivery Method Nasal Cannula Oxygen Flow Rate 2.5 2 Oxygen Delivery Method Nasal Cannula Oxygen Flow Rate 2 Narrative Exam Narrative: Gen: alert, no acute distress CV: tachycardic, no murmurs PULM: clear bilaterally ABD: soft, mild tenderness around PEG site Ext: left upper extremity swelling, bilateral 1+ edema on lower extremity Skin: Diffuse maculopapular rash on trunk and extremities Neuro: nl speech and affect Objective Labs 05/04/23 03:53 05/04/23 03:53 Labs: Laboratory Results - last 24 hr 05/03/23 05/04/23 18:40 03:53 WBC 8.1 RBC 3.34 L Hgb 9.0 L Hct 26.4 L MCV 79.2 L MCH 26.9 MCHC 34.0 RDW 16.0 H Plt Count 410 H Neut % (Auto) 73.8 Lymph % (Auto) 15.5 L Sullivan % (Auto) 5.5 Eos % (Auto) 4.8 H Baso % (Auto) 0.4 Neut # (Auto) 6000 Lymph # (Auto) 1300 Sullivan # (Auto) 400 Eos # (Auto) 400 Baso # (Auto) 0 Sodium 133 L Potassium 3.6 Chloride 99 Carbon Dioxide 30 BUN 13 Creatinine 0.93 Estimated GFR > 60 BUN/Creatinine Ratio 14.0 Glucose 143 H Calcium 8.6 Phosphorus 3.6 Magnesium 1.5 L Vitamin B12 > 1000 H Folate 9.9 Urine Color Yellow Urine Appearance Clear Urine pH 6.0 Ur Specific [place] 1.015 Urine Protein Negative Urine Glucose (UA) Negative Urine Ketones Negative Urine Occult Blood 2+ H Urine Nitrate Negative Urine Bilirubin Negative Urine Urobilinogen 0.2 Ur Leukocyte Esterase 1+ H Urine RBC 1-5/hpf Urine WBC 1-5/hpf Ur Squamous Epith Cells 0-1 /hpf Urine Bacteria Occasional (0-1) Ur Culture Indicated? Specimen cultured PFSH Surgical History Status post dilation and curettage (05/07/13) Status post hemorrhoidectomy Status post tonsillectomy and adenoidectomy Social History household members: none Smoking Status: Never smoker alcohol intake: never Assessment & Plan Assessment & Plan narrative: # Dysphagia s/p PEG tube -unclear etiology, preceded new chemo started a month ago -ST swallow eval noted -CT abd/pelvis noted no evidence of carcinomatosis, noted known metastatic cancer -PEG tube placed on 04/30, starting TF with goal of 50 -Patient requiring enteral/parenteral nutrition via PEG tube due to a functional impairment of the gastrointestinal tract secondary to severe dysphagia. Enteral/Parenteral nutrition will be required for > 90 days and will provide the majority of the patient's nutrition. [facility] to manage tube feedings/TPN. -CT chest ordered to rule out masses contributing to dysphagia, showed some basilar nodules and new R apex nodules. No compressive masses. -didn't tolerate TF at 50/hr, so dietary changing to boluses to see if better tolerated -again failed bolus at 60mL in she had abd pain and bloating, TF stopped -failed TF at 25mL/hr, benzene operator recs pending # acute hypoxic resp failure due to possible hospital acquired pneumonia -requiring 2L NC -CXR shows possible L retrocardiac opacities representing atelectasis vs PNA -started Zosyn -wean O2 as able # constipation -hasn't had BM in a week -dulcolax suppository ordered, patient refused laxatives # Superificial vein thrombosis, LUE -us ruled out DVT but noted cephalic vein thrombosis -plan for nsaids and warm compresses # Weakness -secondary to dec po intake, no evidence of urine/lung infection -PT recommends SNF, however patient wants to return home with HH # Chronic urticaria -sev pruritis, not responsive to loratidine or benadryl, slightly responsive to hydroxyzine and TAC 1% crm -cont hydroxyzine 50mg q4h prn and TAC 1% crm prn # 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 -CXR findings in LLL related to mets # Elevated BNP w/o clinical evidence of CHF -ECHO: EF 70-75%, sm pericardial effusion w/o tamponade # Vaginal mucositis -appreciate Dr. Cortez consult, rec steroids and nystatin externally -plan for swab to evaluate for vaginal infection which is pending, may need fluconazole Dispo: Pending TF advancement. Unclear if palliative direction needs to be taken if unable to tolerate TF. Quality VTE Deep Vein Thrombosis/Pulmonary Embolism Present on Admission: No
[2023-05-04] MEDS: SENNOSIDES 8.6 MG TABLET 17.2 MG PO (21:39)
[2023-05-04] MEDS: PRAVASTATIN 20 MG TABLET PO (21:39)
[2023-05-04] MEDS: NYSTATIN CREAM 30 GM 1 APPLIC TOP (21:40)
[2023-05-04] MEDS: LOSARTAN 25 MG TABLET PO (21:40)
[2023-05-05] VITALS (8 sets, daily range): BP systolic 142–156; BP diastolic 68–77; PULSE 75–88; RESP 17–18; TEMP 36.3–37.5; O2SAT 93–95
[2023-05-05 04:31] LABS: Add Manual Diff / Slide Review NO; Basophils Absolute Auto 0 /uL (0-100); Basophils Percent Auto 0.6 % (0-2); Eosinophils Absolute Auto 600 /uL (0-450); Eosinophils Percent Auto 7.9 % (2-4); Hematocrit 27.3 % (36-46); Hemoglobin 9.1 g/dL (12.0-16.0); Lymphocytes Absolute Auto 1100 /uL (1100-4500); Lymphocytes Percent Auto 13.1 % (25-40); Mean Corpuscular HGB Conc 33.5 % (30-36); Mean Corpuscular Hemoglobin 26.7 PG (26-34); Mean Corpuscular Volume 79.7 fL (80-100); Monocytes Absolute Auto 400 /uL (0-900); Monocytes Percent Auto 5.5 % (3-14); Neutrophils Absolute Auto 5900 /uL (1500-7000); Neutrophils Percent Auto 72.9 % (50-75); Platelet Count 351 X10^3/uL (150-400); Red Blood Cell Count 3.43 X10^6/uL (4.0-5.2); Red Cell Distribution Width 15.7 % (11.6-14.8); White Blood Cell Count 8.1 X10^3/uL (4.5-11.0)
[2023-05-05 04:44] LABS: BUN Creatinine Ratio 11.5 (6-22); Blood Urea Nitrogen 10 mg/dL (7-17); Calcium 8.5 mg/dL (8.4-10.2); Carbon Dioxide 30 mmol/L (22-32); Chloride 98 mmol/L (98-107); Estimated Glomerular Filt Rate > 60 mL/min (>60); Glucose 102 mg/dL (80-110); HEMOLYSIS < 15 (0-50); Magnesium 2.2 mg/dL (1.6-2.3); Phosphorous 3.3 mg/dL (2.8-4.1); Potassium 3.8 mmol/L (3.4-5.1); Sodium 131 mmol/L (137-145)
[2023-05-05] MEDS: PIPERACILLIN/TAZO 3.375 GM in SODIUM CHLORIDE 0.9% 100 ML IV (05:15)
[2023-05-05] MEDS: CYCLOBENZAPRINE 10 MG TABLET 5 MG PO ×3 (05:15→21:06)
--- NOTE | 2023-05-05 06:39 | PC.NURSE ---
Pt has not been tolerating her tube feeding via PEG; she was able to drink tea and V8 juice without any nausea or vomiting; she was able to take her meds without difficulty; she does c/o chronic itching and was medicated once with vistaril; pt was able to sleep a good portion of the shift
[2023-05-05] MEDS: FAMOTIDINE 20 MG TABLET 10 MG PO (08:39)
[2023-05-05] MEDS: ENOXAPARIN 40 MG/0.4 ML SYRINGE SUBCUT (08:39)
[2023-05-05] MEDS: LOSARTAN 25 MG TABLET PO ×2 (08:39→21:06)
[2023-05-05] MEDS: THIAMINE 100 MG TABLET PO (08:39)
[2023-05-05] MEDS: hydrOXYzine pamoate 25 MG CAPSULE 50 MG PO ×3 (08:39→18:07)
[2023-05-05] MEDS: NYSTATIN CREAM 30 GM 1 APPLIC TOP ×2 (08:40→21:06)
[2023-05-05] MEDS: TRIAMCINOLONE 0.1% CREAM 15 GM 1 APPLIC TOP ×2 (08:40→21:07)
[2023-05-05] MEDS: BISACODYL 10 MG SUPP PR (12:29)
[2023-05-05] MEDS: levoFLOXacin 250 MG TABLET 750 MG PO (13:21)
[2023-05-05] MEDS: ONDANSETRON 4 MG/2 ML INJ IV (14:12)
--- NOTE | 2023-05-05 15:01 | CM.DPC ---
DCP Cont: Per MD, awaiting recommendations for Soil Chemist as pt's tube feeding has been decreased due to pt not feeling well after tube feeds. Per Soil Chemist, will increase pt's bowel regimen as she has not had a bm for a few days and this likely could contribute to pt's discomfort after tube feeds and also that pt has not eaten much in the past couple years and is not used to the feeling of being full. RN and updated. Once pt has bm could likely d/c home with outpt f/u. BRIJESH updated Benson at [facility] on likely d/c home tomorrow after bm. Plan: BRIJESH to follow for plan of d/c home tomorrow 05/06 with [facility] to manage tube feeds and [facility] once pt has bm. CHARLY Carroll
--- NOTE | 2023-05-05 15:30 | DIET.PN1 ---
Addendum entered by Nurys Crump 05/05/23 15:42: Pt without N/V throughout entire weekend, sx only pain at PEG site and fullness sensation in abd. Original Note: Dietary Progress Note Pt remains hospitalized after weekend due to TF intolerance (pain at PEG site, bloating sensation). Per patient and chart, no BM x4d. Pt declines laxative, open to suppository. Pts full sensation after feeding rate of 25mL/h with no residuals has unclear etiology. Pt is post-surgical and has had meager PO intake for the past 1y. Recc bowel regimen with test bolus feeds after BM to see if resolved. Pt may need to do small frequent bolus feeding in home setting until she gets used to sensations of PEG feeding. Okay to d/c after BM if cleared by hospitalist. Ht: 152.4 cm Wt: 59.5 kg BMI: 25.6 Last BM: 05/01/23 (05/01/23 10:00) MNA: 14 Luis Angel Score: 18 Diet: 04/30/23 Lunch Dysphagia Diet Diet Modifications: Food Texture: Level 6-Soft & Bite-sized Liquid Consistency: Level 0 - Thin 05/01/23 Lunch Tube Feeding Diet Diet Modifications: TF Supplement type: Jevity 1.2 jewels TF mode of delivery: Bolus Starting flow rate mL/hr: 240 Flow rate goal mL/hr: 240 Titration Schedule to reach Goal Rate: as tolerated Max total daily volume in mL: 2,000 Free fluid: 100 Free Water Frequency: Q4H Comment: bolus feeds of 240mL five times per day as tolerated Nutrition Type of Feeding Tube PEG 05/05/23 06:00 Type of Feeding Tube PEG 05/04/23 06:00 Type of Feeding Tube PEG 05/04/23 02:00 Type of Feeding Tube PEG 05/03/23 22:00 Type of Feeding Tube PEG 05/03/23 18:00 Labs: RBC 3.43 X10^6/uL (4.0-5.2) L 05/05/23 04:22 Hgb 9.1 g/dL (12.0-16.0) L 05/05/23 04:22 Hct 27.3 % (36-46) L 05/05/23 04:22 Creatinine 0.87 mg/dL (0.52-1.04) 05/05/23 04:22 Lactate 1.0 mmol/L (0.7-2.1) 04/25/23 19:50 NT-Pro-B Natriuret Pep 3410 pg/mL (<450) H 04/25/23 17:00 Electronically Signed by: Nurys Crump 05/05/23 15:30 Clinical Dietitian [address] [address]
--- NOTE | 2023-05-05 16:05 | PT.IPTN ---
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) Dehydration (04/27/23) Weakness (04/27/23) Surgery Performed Operation Date: 04/30/23 12:00 Actual Procedures p Peg Tube Insertion - Tricia Gregory MD Physical Therapy Treatment Note M2 PT-IP Current Condition Start: 04/26/23 13:24 Freq: NEEDED Status: Active Protocol: Document 04/26/23 10:45 AB (Rec: 04/26/23 13:42 AB [id number]) Physical Therapy Current Condition Current Condition Evaluation Date 04/26/23 Treatment Diagnosis UTI; difficulty in walking Onset Date 04/25/23 M3 PT-IP Subjective Start: 04/26/23 13:24 Freq: NEEDED Status: Active Protocol: Document 05/05/23 16:05 AW (Rec: 05/05/23 16:21 AW [id number]) Subjective Physical Therapy Visit Type Type Treatment Note Visit Start Time 15:35 Visit Stop Time 16:05 Total Visit Minutes 30 Number of CATERING OPERATIONS MANAGER Visits 0 Physical Therapy Visit Comments Patient Comments Pt would like to use the commode Therapy Pain Assessment Pain When Pain Assessed During Mobility Location Abdomen Scale Used pt states more nauseous than painful M4 PT-IP Mobility and Gait Start: 04/26/23 13:24 Freq: NEEDED Status: Active Protocol: Document 05/05/23 16:05 AW (Rec: 05/05/23 16:21 AW [id number]) PT-Bed Mobility Assessment Supine to Sit Supine to Sit Minimal Assistance,1 Person Assistance Sit to Supine Sit to Supine Moderate Assistance,1 Person Assistance Scooting Scooting to Edge of Bed Minimal Assistance PT-Transfer Assessment Sit to and From Stand Sit to and from Stand Minimal Assistance,1 Person Assistance,Use of Upper Extremities Equipment Transfer Assistive Device Gait Belt,Front Wheeled Walker Orthotic/Prosthetic Devices or Brace: No Transfers Transfer Destination Bedside Commode Transfer Technique Stand Step Pivot Transfer Ability Level of Assist Contact Guard Assistance, Minimal Assistance,1 Person Assistance,Use of Upper Extremities Comments Mobility Comments Pt resting in bed as PT arrives. She needs assist and cueing for direction to sit up to EOB. She reports some urgency and needs to get to the commode. She needs min A to stand from the bed and complains of BLE weakness, has difficulty fully extendiong her knees initially. Transfers CGA to min A using FWW with questionable steadiness. Pt has a small, unformed bowel movement and needs assist with pericare. Sit to stand from the commode requires min A and cues for hand placement to improve stability. Pt transfers back to bed using FWW with min A. She appears confused sitting EOB and attempts to lie down with her head going toward the foot of the bed. With mod assist and cues for direction, pt returns to supine. Warm blankets provided and call light left in reach. Gait Assessment Comments Gait Comments Pt reports feeling too exhausted and weak to ambulate today. PT-Balance Assessment Sitting Balance and Reactions Static Sitting Balance Ability Good Dynamic Sitting Balance Ability Good Standing Balance and Reactions Static Standing Balance Ability Fair Dynamic Standing Balance Ability Fair Device Used FWW Comments Other Balance Tests/Deviations/Treatment Pt had two episodes of : buckling today during transfers. M5 PT-IP Objective Assessments Start: 04/26/23 13:24 Freq: NEEDED Status: Active Protocol: Document 04/26/23 10:45 AB (Rec: 04/26/23 13:42 AB [id number]) Orientation Orientation/Cognition Level of Alertness Alert Orientation Name,Place,Situation Language Function Ability Hard of Hearing Safety Awareness Decreased Safety Awareness Memory Description No Deficits Noted Gross Range of Motion Lower Extremity ROM Assessment Within Functional Limits Strength Lower Extremity Strength Assessment Bilaterally Impaired Hip 3+/5 Knee 3+/5 Muscle Tone Muscle Tone WNL Yes M6 PT-IP Treatment Start: 04/26/23 13:24 Freq: NEEDED Status: Active Protocol: Document 05/05/23 16:05 AW (Rec: 05/05/23 16:21 AW [id number]) Physical Therapy Treatment Education Education Provided Safety M7 PT-IP Assessment and Plan Start: 04/26/23 13:24 Freq: NEEDED Status: Active Protocol: Document 05/05/23 16:05 AW (Rec: 05/05/23 16:21 AW [id number]) PT Summary Assessment and Plan Potential Rehabilitation Potential Good Summary Impairments Pain,ROM,Strength,Balance, Coordination,Sensation,Tone, Cognition,Bed Mobility, Transfers,Gait,Activity Tolerance Progress Towards Goals Slow Progress due to Medical Issues,Slow Progress due to Activity Tolerance Assessment Summary Howard appears to be suffering from hospital-acquired weakness. She has refused PT the past three days and nursing is not aware of her getting out of bed for any other reason. She looks weaker today and needs a higher level of assist than is likely to be available for her at home. At this time, PT recommends SNF for ongoing rehab in a setting with 24/7 supervision. If pt refuses SNF , PT may need to consider caregiver training prior to discharge. Will continue to assess. Goals Bed Mobility Goal Minimal Assistance Transfer Goal Minimal Assistance,Front Wheeled Walker Gait Goal Standby Assistance,Front Wheel Walker Gait Distance 100 Other Goals improve bed mobility, transfers , ambulation using LRAQ/without AD 250 ft mod I Days to Meet Goals 10 Frequency of Treatment Frequency Of Treatment Once a Day Treatment Plan Physical Therapy Treatment Plan Bed Mobility Training,Transfer Training,Gait Training, Therapeutic Exercise,Balance Retraining,Discharge Planning, Hot or Cold Pack,Neuromuscular Re-ed,Coordination Retraining Precautions Other Precautions falls Recommendations To Nursing Amount of Assist Needed 1 Person Assist Discharge Recommendations PT Discharge Recommendations Home with 24/7 Assist Available,Home Health,SNF Rehab Other Discharge Recommendations SNF vs 24/7 and home PT depending on progress Equipment Needed for Home Before FWW Discharge Transportation Needs at Discharge Private Vehicle
--- NOTE | 2023-05-05 16:24 | OT.IPNOTE ---
attempted to see pt in PM. PT states that she wants to get up but that she still has a suppository in and would like to wait. Will hold today and continue to follow.
--- NOTE | 2023-05-05 17:03 | P.PN_ITS ---
Subjective Subjective Date Patient Seen: 05/05/23 Time Patient Seen: 08:00 Interval history: She denies any abdominal pain, bloating. Exam Vital Signs (past 8 hours): - 05/05/23 13:08 Pulse Oximetry 95 Oxygen Flow Rate 0 Oxygen Delivery Method Nasal Cannula Oxygen Flow Rate 0 Narrative Exam Narrative: Gen: alert, no acute distress CV: no murmurs PULM: clear bilaterally ABD: soft, mild tenderness around PEG site Ext: left upper extremity swelling, bilateral 1+ edema on lower extremity Skin: Diffuse maculopapular rash on trunk and extremities Objective Labs 05/05/23 04:22 05/05/23 04:22 Labs: Laboratory Results - last 24 hr 05/05/23 04:22 WBC 8.1 RBC 3.43 L Hgb 9.1 L Hct 27.3 L MCV 79.7 L MCH 26.7 MCHC 33.5 RDW 15.7 H Plt Count 351 Neut % (Auto) 72.9 Lymph % (Auto) 13.1 L [place] % (Auto) 5.5 Eos % (Auto) 7.9 H Baso % (Auto) 0.6 Neut # (Auto) 5900 Lymph # (Auto) 1100 [place] # (Auto) 400 Eos # (Auto) 600 H Baso # (Auto) 0 Sodium 131 L Potassium 3.8 Chloride 98 Carbon Dioxide 30 BUN 10 Creatinine 0.87 Estimated GFR > 60 BUN/Creatinine Ratio 11.5 Glucose 102 Calcium 8.5 Phosphorus 3.3 Magnesium 2.2 PFSH Surgical History Status post dilation and curettage (05/07/13) Status post hemorrhoidectomy Status post tonsillectomy and adenoidectomy Social History household members: none Smoking Status: Never smoker alcohol intake: never Assessment & Plan Assessment & Plan narrative: # Dysphagia s/p PEG tube -unclear etiology, preceded new chemo started a month ago -ST swallow eval noted -CT abd/pelvis noted no evidence of carcinomatosis, noted known metastatic cancer -PEG tube placed on 04/30, starting TF with goal of 50 -Patient requiring enteral/parenteral nutrition via PEG tube due to a functional impairment of the gastrointestinal tract secondary to severe dysphagia. Enteral/Parenteral nutrition will be required for > 90 days and will provide the majority of the patient's nutrition. [facility] to manage tube feedings/TPN. -CT chest ordered to rule out masses contributing to dysphagia, showed some basilar nodules and new R apex nodules. No compressive masses. -continue tube feeds per developer prover mechanical # acute hypoxic resp failure due to possible hospital acquired pneumonia -requiring 2L NC, now stopped -CXR shows possible L retrocardiac opacities representing atelectasis vs PNA -ordered levofloxacin -wean O2 as able # constipation -hasn't had BM in a week -dulcolax suppository ordered, patient refused laxatives # Superificial vein thrombosis, LUE -us ruled out DVT but noted cephalic vein thrombosis -plan for nsaids and warm compresses # Weakness -secondary to dec po intake, no evidence of urine/lung infection -PT recommends SNF, however patient wants to return home with HH # Chronic urticaria -sev pruritis, not responsive to loratidine or benadryl, slightly responsive to hydroxyzine and TAC 1% crm -cont hydroxyzine 50mg q4h prn and TAC 1% crm prn # 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 -CXR findings in LLL related to mets # Elevated BNP w/o clinical evidence of CHF -ECHO: EF 70-75%, sm pericardial effusion w/o tamponade # Vaginal mucositis -appreciate Dr. Cortez consult, rec steroids and nystatin externally -plan for swab to evaluate for vaginal infection which is pending, may need fluconazole Dispo: Pending TF advancement. Unclear if palliative direction needs to be taken if unable to tolerate TF. Quality VTE Deep Vein Thrombosis/Pulmonary Embolism Present on Admission: No
[2023-05-05] MEDS: PRAVASTATIN 20 MG TABLET PO (21:06)
[2023-05-06] VITALS: BP 159/74; RESP 16; TEMP 37.1; O2SAT 94
[2023-05-06] MEDS: hydrOXYzine pamoate 25 MG CAPSULE 50 MG PO ×5 (00:37→16:13)
[2023-05-06 04:57] LABS: Add Manual Diff / Slide Review NO; Basophils Absolute Auto 0 /uL (0-100); Basophils Percent Auto 0.4 % (0-2); Eosinophils Absolute Auto 600 /uL (0-450); Eosinophils Percent Auto 7.6 % (2-4); Hematocrit 27.6 % (36-46); Hemoglobin 9.1 g/dL (12.0-16.0); Lymphocytes Absolute Auto 800 /uL (1100-4500); Lymphocytes Percent Auto 10.5 % (25-40); Mean Corpuscular Hemoglobin 26.8 PG (26-34); Mean Corpuscular Volume 81.1 fL (80-100); Monocytes Absolute Auto 600 /uL (0-900); Monocytes Percent Auto 7.2 % (3-14); Neutrophils Absolute Auto 5900 /uL (1500-7000); Neutrophils Percent Auto 74.3 % (50-75); Platelet Count 339 X10^3/uL (150-400)
[2023-05-06] MEDS: CYCLOBENZAPRINE 10 MG TABLET 5 MG PO ×2 (04:58→13:29)
[2023-05-06 05:06] LABS: BUN Creatinine Ratio 12.5 (6-22); Blood Urea Nitrogen 11 mg/dL (7-17); Calcium 9.1 mg/dL (8.4-10.2); Carbon Dioxide 28 mmol/L (22-32); Chloride 101 mmol/L (98-107); Estimated Glomerular Filt Rate > 60 mL/min (>60); Glucose 107 mg/dL (80-110); HEMOLYSIS < 15 (0-50); Magnesium 1.9 mg/dL (1.6-2.3); Phosphorous 2.5 mg/dL (2.8-4.1); Potassium 3.9 mmol/L (3.4-5.1); Sodium 133 mmol/L (137-145)
[2023-05-06 05:59] VITALS: BP 131/51; PULSE 76; RESP 16; TEMP 37; O2SAT 94
[2023-05-06 08:00] VITALS: BP 158/72; PULSE 79; RESP 16; TEMP 36.6; O2SAT 96
[2023-05-06 08:41] VITALS: BP 158/72; PULSE 79
[2023-05-06] MEDS: THIAMINE 100 MG TABLET PO (08:41)
[2023-05-06] MEDS: FAMOTIDINE 20 MG TABLET 10 MG PO (08:41)
[2023-05-06] MEDS: LOSARTAN 25 MG TABLET PO (08:41)
[2023-05-06] MEDS: NYSTATIN CREAM 30 GM 1 APPLIC TOP (08:42)
[2023-05-06] MEDS: ENOXAPARIN 40 MG/0.4 ML SYRINGE SUBCUT (08:42)
[2023-05-06] MEDS: TRIAMCINOLONE 0.1% CREAM 15 GM 1 APPLIC TOP (08:43)
--- NOTE | 2023-05-06 09:10 | PT.IPTN ---
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) Dehydration (04/27/23) Weakness (04/27/23) Surgery Performed Operation Date: 04/30/23 12:00 Actual Procedures p Peg Tube Insertion - Tricia Gregory MD Physical Therapy Treatment Note M2 PT-IP Current Condition Start: 04/26/23 13:24 Freq: NEEDED Status: Active Protocol: Document 04/26/23 10:45 AB (Rec: 04/26/23 13:42 AB [id number]) Physical Therapy Current Condition Current Condition Evaluation Date 04/26/23 Treatment Diagnosis UTI; difficulty in walking Onset Date 04/25/23 M3 PT-IP Subjective Start: 04/26/23 13:24 Freq: NEEDED Status: Active Protocol: Document 05/06/23 09:35 TS (Rec: 05/06/23 09:57 TS [id number]) Subjective Physical Therapy Visit Type Type Treatment Note Visit Start Time 09:10 Visit Stop Time 09:28 Total Visit Minutes 18 Number of SCHOOL CROSSING GUARD Visits 1 Physical Therapy Visit Comments Patient Comments Pt found resting in bed, reports feeling better this morning and denies any nausea, is agreeable to PT. Therapy Pain Assessment Pain When Pain Assessed During Mobility Pain Present Pain Present Pain Reported M4 PT-IP Mobility and Gait Start: 04/26/23 13:24 Freq: NEEDED Status: Active Protocol: Document 05/06/23 09:35 TS (Rec: 05/06/23 09:57 TS [id number]) PT-Bed Mobility Assessment Supine to Sit Supine to Sit Minimal Assistance,1 Person Assistance Sit to Supine Sit to Supine Moderate Assistance,1 Person Assistance Scooting Scooting to Edge of Bed Contact Guard Assistance PT-Transfer Assessment Sit to and From Stand Sit to and from Stand Contact Guard Assistance,1 Person Assistance,Use of Upper Extremities Equipment Transfer Assistive Device Gait Belt,Front Wheeled Walker Orthotic/Prosthetic Devices or Brace: No Comments Mobility Comments Supine to sit Esther with handheld assist for uprighting trunk with HOB elevated 30D. She scooted to EOB CGA, had some posterior LOB with not using BUE support. Sit to stand from bed CGA with FWW, pt has good standing posture with no retroleaning. She ambulated ~150'SBA with slow step thru gait and FWW, has slight lean to R side, no buckling or LOB. Sit to supine into bed ModA for LEs, pt required Esther for repositioning of trunk. Pt was left in bed with all needs met, RN notified. Gait Assessment Gait Gait Assistance Required: Standby Assistance Distance (Feet) 150 Able to Maintain Weight Bearing Status Yes During Gait Assistive Devices Assistive Device Gait Belt,Front Wheeled Walker Orthotic/Prosthetic Devices or Brace: No Gait Deviations General Gait Pattern Decreased Stride Length, Decreased Feet Clearance Factors Limiting Gait Function Factors Limiting Gait Function Decreased Activity Tolerance, Decreased Strength,Poor Balance Comments Gait Comments See mobility comments. PT-Balance Assessment Sitting Balance and Reactions Static Sitting Balance Ability Good Dynamic Sitting Balance Ability Good Standing Balance and Reactions Static Standing Balance Ability Good Dynamic Standing Balance Ability Fair Device Used FWW M5 PT-IP Objective Assessments Start: 04/26/23 13:24 Freq: NEEDED Status: Active Protocol: Document 04/26/23 10:45 AB (Rec: 04/26/23 13:42 AB [id number]) Orientation Orientation/Cognition Level of Alertness Alert Orientation Name,Place,Situation Language Function Ability Hard of Hearing Safety Awareness Decreased Safety Awareness Memory Description No Deficits Noted Gross Range of Motion Lower Extremity ROM Assessment Within Functional Limits Strength Lower Extremity Strength Assessment Bilaterally Impaired Hip 3+/5 Knee 3+/5 Muscle Tone Muscle Tone WNL Yes M6 PT-IP Treatment Start: 04/26/23 13:24 Freq: NEEDED Status: Active Protocol: Document 05/06/23 09:35 TS (Rec: 05/06/23 09:57 TS [id number]) Physical Therapy Treatment Education Education Provided Safety M7 PT-IP Assessment and Plan Start: 04/26/23 13:24 Freq: NEEDED Status: Active Protocol: Document 05/06/23 09:35 TS (Rec: 05/06/23 09:57 TS [id number]) PT Summary Assessment and Plan Potential Rehabilitation Potential Good Summary Impairments Pain,ROM,Strength,Balance, Coordination,Sensation,Tone, Cognition,Bed Mobility, Transfers,Gait,Activity Tolerance Progress Towards Goals Progressing Toward Goals Assessment Summary Howard is making some progress with her mobility this session . She continues to require Esther for supine to sit with handheld assist to upright into sitting position on EOB. She is CGA for sit to stand with FWW, has no buckling or LOB, does slighlty lean to R side, requires cues for midline. She progressed her gait to ~150' SBA with FWW, denied any lightheadedness, thermal changes or nausea. PT is recommending home with 24/7 assist and HHPT vs SNF. If pt does not have 24/7 at home could benefit from SNF stay to progress strength and activity tolerance before d/c home. Goals Bed Mobility Goal Minimal Assistance Transfer Goal Minimal Assistance,Front Wheeled Walker Gait Goal Standby Assistance,Front Wheel Walker Gait Distance 100 Other Goals improve bed mobility, transfers , ambulation using LRAQ/without AD 250 ft mod I Days to Meet Goals 10 Frequency of Treatment Frequency Of Treatment Once a Day Treatment Plan Physical Therapy Treatment Plan Bed Mobility Training,Transfer Training,Gait Training, Therapeutic Exercise,Balance Retraining,Discharge Planning, Hot or Cold Pack,Neuromuscular Re-ed,Coordination Retraining Precautions Other Precautions falls Recommendations To Nursing Amount of Assist Needed 1 Person Assist Discharge Recommendations PT Discharge Recommendations Home with 24/7 Assist Available,Home Health,Home vs SNF Equipment Needed for Home Before FWW Discharge Transportation Needs at Discharge Private Vehicle
--- NOTE | 2023-05-06 12:04 | CM.DPC ---
Addendum entered by CHARLY Carroll 05/06/23 14:10: ADD: BRIJESH met bedside with RN, pt, and her local friend support Sharon as Sharon was unaware of discharge orders and plan. BRIJESH and RN discussed HH and [facility] and Sharon is a L&D RN and has knowledge on tube feeding and medical needs. After discussion, pt and friend agreeable with plan of d/c home today once they call pt's son Nicola to request he stay the night with the pt and then they have another friend who will stay with pt tomorrow night. SW also provided pt and friend with the Senior Resource Guidebook with earmarked PP CG agency list in case needed after d/c. Friend aware that pt and family decline SNF and that pt is medically stable to d/c to lower level of care and no medical need to stay hospital level of care past today. Plan: Patient to d/c home today via friend Sharon POV and family to assist at home and [facility] and [facility] to follow. BF Original Note: DCP Discharge Home with HH and tube feeds Per MD, pt has had bm and voided independently and tolerating tube feeds and medically stable to discharge home today. Per RN, have been doing bedside teaching with pt for self tube feeds and pt to complete another on her own with RN bedside today and then will d/c home. BRIJESH met bedside with pt and explained role again and discussed discharge to home and provided [facility] and [facility] brochures. Pt states her two friends and her two adult children will be taking turns providing assist to her at home and she had some concerns about her bed/chair mobility and fall risk. SW offered SNF again in pt did not feel d/c to home was a safe plan, pt refuses SNF and states she is just nervous about going home after having such good care at the hospital. Pt confirms that her friend can provide transport home today and pt does not have concerns with the tube feeding as she says its not complicated, just quite straight forward. BRIJESH called [facility] and alerted them that pt to d/c home and faxed signed F2F, HH orders, updated MD prog note (no d/c summ available yet), most recent PT/ST/Final Inspection Supervisor notes to review to [facility]. BRIJESH called [facility] and alerted intake and health care legal assistant that pt will d/c home today with HH and tube feeding needs. They confirm they have the MD documentation needed for insurance to provide the formula. Plan: Patient to d/c home today via friend POV and [facility] to follow for tube feeding supplies and [facility] RN/PT/OT/ST/IC DESIGNER [employer]. CHARLY Carroll
--- NOTE | 2023-05-06 17:03 | PC.NURSE ---
Pt is dressed and ready for discharge home with friend. IV has been removed. Pt has received feeding tube training and states she will have no problem performing her own feeding. Pt has a network of friends and family that she has arranged for assisting in her care. Pt has spoken with Nurys BLAIR, Dr. Capone, and Latosha ARROYO about discharge plan of care and resources. Arrangements have been made for family/friends to supply in-home support for Pt and she has Home Health, PT, ST, OT, and PT set up as well as infusion care. Reviewed stroke education, discussed d/c meds, time of last dose, and follow up. Pt denied further questions and was taken out via w/c by SINGING TELEGRAM PERFORMER to POV with Friend Carine and all belongings.
--- NOTE | 2023-05-07 20:19 | PM.DS.1 ---
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 The pt was seen in the ER 3 days ago for similar complaints and was sent home with a course of Augmentin which she has been taking. She lives alone, and has been having more trouble with ADL's lately She denies fevers, chills, vomiting, hematuria, but has some dysuria with a rash in the groin area. She has fallin twice lately. Discharge Providers Provider Date of admission: 04/27/23 12:14 Discharge Date: 05/06/23 Primary care physician: Argenis Walter MD Consults: 04/25/23 16:32 Consult to [facility] - Sustainability Officer Stat Comment: 04/25/23 21:22 Consult to Occupational Therapy Evaluate & Treat Comment: Physician Instructions: Evaluate and treat Consult to Physical Therapy Evaluate & Treat Comment: Physician Instructions: Evaluate and Treat 04/27/23 09:24 Consult to Speech Therapy Evaluate & Treat Comment: Physician Instructions: Evaluate and treat 04/27/23 13:22 Consult to Physician Routine Comment: Consulting Provider: Tiera Cortez Reason for consultation: vaginal pain Has provider been notified: Yes 04/28/23 16:13 Consult to General Surgery Routine Comment: Consulting Provider: Tricia Gregory Reason for consultation: peg tube? Has provider been notified: Yes 04/29/23 13:52 Consult to Dietitian, Adult Routine Comment: Reason For Exam: peg tube, tube feeds 04/30/23 12:13 Consult to Dietitian, Adult Routine Comment: Reason For Exam: tube feeding 05/02/23 13:44 Consult to Home Health Routine Comment: Reason For Exam: Home health services upon discharge Discharge provider: Sarthak Capone MD Summary Hospital Course Discharge Diagnosis: 1. Dysphagia s/p PEG 2. Pneumonia and acute hypoxemic respiratory failure 3. Constipation 4. Superficial vein thrombosis 5. Candidal skin infection 6. Metastatic sarcoma Hospital Course: Ms. Luna was admitted due to weakness. She had difficulty with eating. She had a PEG placed and was started on tube feeds. She developed a pneumonia and required oxygen and was treated with antibiotics and improved. She had a candidal skin infection was treated with steroids and nystatin. She was discharged home with home health to assist in new tube feeds. Exam Vital Signs (past 8 hours): Oxygen Delivery Method Room Air Oxygen Flow Rate 0 Narrative Exam Narrative: Gen: alert, no acute distress CV: no murmurs PULM: clear bilaterally ABD: soft, mild tenderness around PEG site Ext: left upper extremity swelling Skin: Diffuse maculopapular rash on trunk and extremities Objective Labs 05/06/23 04:30 05/06/23 04:30 [facility] Surgical History Status post dilation and curettage (05/07/13) Status post hemorrhoidectomy Status post tonsillectomy and adenoidectomy Social History household members: none Smoking Status: Never smoker alcohol intake: never Discharge Plan Discharge Plan Patient Disposition: Home Health Service Provider Discharge Comment: Ms. Luna came in to the hospital with trouble eating. She was started on tube feeds after getting a PEG tube. She also had yeast infection and improved with cream. She had a pneumonia and improved with antibiotics and should continue these. She should follow up with her doctor within one week. Discharge orders & Medications Prescriptions: New sennosides [senna] 8.6 mg Tablet 17.2 mg PO BEDTIME Qty: 20 0RF triamcinolone acetonide 0.5 % Cream 1 applic topical BID Qty: 15 0RF hydrocodone-acetaminophen 5-325 mg Tablet 1 tab PO Q4HR PRN (Reason: Pain, Moderate (4-6)) Qty: 12 0RF famotidine [Pepcid AC] 20 mg Tablet 10 mg PO DAILY Qty: 30 0RF nystatin 100,000 unit/gram Cream 1 applic topical BID Qty: 30 0RF hydroxyzine pamoate 25 mg Capsule 50 mg PO Q4HR PRN (Reason: Itching) Qty: 160 0RF thiamine mononitrate (vit B1) 100 mg Tablet 100 mg PO DAILY Qty: 30 0RF amoxicillin-pot clavulanate 875-125 mg tablet 1 tab PO BID Qty: 6 0RF Continued hydroxyzine pamoate 25 mg capsule 25 mg PO BID PRN (Reason: itch) famotidine 20 mg tablet 10 mg PO DAILY prochlorperazine maleate 10 mg tablet 10 mg PO Q6H PRN (Reason: nausea/vomiting) pravastatin 20 mg tablet 20 mg PO DAILY difluprednate 0.05 % drops 1 drp EYE-BOTH DAILY hydroxyzine HCl 25 mg tablet 25 mg PO QID Qty: 40 0RF Discontinued amoxicillin-pot clavulanate 875-125 mg tablet 1 tab PO Q12H Qty: 20 0RF Follow up/Referrals: Argenis Walter MD [Primary Care Provider] - 05/13/23 3:00 pm (Appt:05/13 @ 3:[address] Montes please arrive 15 min prior to your scheduled appointment time ) Diet/Activity/Treatments Diet: Tube Feeding Visit Report/Discharge Packet Instructions: How to Care for Your PEG Tube, DI for Percutaneous Endoscopic Gastrostomy (PEG), DI for Prescription Opioid Use, Hydroxyzine, Amoxicillin and Clavulanic Acid, Famotidine, [facility]: Wound Care, Hydrocodone/Acetaminophen (By mouth) Stand Alone Forms: Patient Portal/API, Stroke Signs & Symptoms, Surgery Discharge Discharge Data Primary Care Provider: Argenis Walter Quality VTE Deep Vein Thrombosis/Pulmonary Embolism Present on Admission: No
== END 2023-05-06 17:13 | disposition home or self-care (01) | DRG 391 ==
LOC: ED 18:08 → AC 21:10
PROVIDERS: Emergency Medicine; Family Medicine; Internal Medicine; Obstetrics & Gynecology; Student in an Organized Health Care Education/Training Program; Surgery; Admitting Provider Internal Medicine; Emergency Provider Emergency Medicine; PCP Internal Medicine; Visit Provider Internal Medicine
PROC: 0DH63UZ Insertion of Feeding Device into Stomach, Percutaneous Approach (ICD-10-PCS; CPT 43246; principal; 2023-04-30 12:00)
DX: R13.10 Dysphagia, unspecified (principal); J18.9 Pneumonia, unspecified organism; J96.01 Acute respiratory failure with hypoxia; I82.612 Acute embolism and thrombosis of superficial veins of left upper extremity; E86.0 Dehydration; N76.0 Acute vaginitis; D49.2 Neoplasm of unspecified behavior of bone, soft tissue, and skin; R33.9 Retention of urine, unspecified; L50.8 Other urticaria; K59.00 Constipation, unspecified; Z90.5 Acquired absence of kidney
CPT/HCPCS: 36415; 43246; 71045; 71250; 74018; 74177; 80048; 80053; 81001; 81003; 82550; 82607; 82746; 82962; 83605; 83690; 83735; 83880; 84100; 84145; 84484; 85025; 85027; 85610; 85730; 87040; 87086; 87480; 87510; 87633; 87635; 87660; 92507; 92526; 92610; 93005; 93306; 93971; 94760; 96374; 97110; 97116; 97163; 97165; 97530; 97535; 99231; 99284; C9803; G0378; A9270; J0330; J1100; J1200; J1650; J1940; J2405; J2543; J3010; J3475; Q9967